=== PATIENT | female | born 1950 | race Caucasian/White ===

== ENCOUNTER 2019-12-05 15:41 | Outpatient (REF) | payer OTHER, SELFPAY | END 2019-12-05 15:42 | disposition home or self-care (01) | LOC: HO.LAB 15:41 | PROVIDERS: PCP Nurse Practitioner Family; Visit Provider Internal Medicine | DX: Z20.828 Contact with and (suspected) exposure to other viral communicable diseases (principal) | CPT/HCPCS: 87635 ==

== ENCOUNTER 2019-12-19 17:10 | Outpatient (REF) | payer OTHER, SELFPAY | END 2019-12-19 17:11 | disposition home or self-care (01) | LOC: HO.LAB 17:10 | PROVIDERS: Visit Provider Internal Medicine | DX: Z20.828 Contact with and (suspected) exposure to other viral communicable diseases (principal) | CPT/HCPCS: U0003 ==

== ENCOUNTER 2020-02-26 10:18 | Outpatient (REF) | payer OTHER, SELFPAY ==
--- NOTE | 2020-02-26 | MR_ITS ---
EXAMINATION: MR BRAIN WITHOUT AND WITH CONTRAST CLINICAL INFORMATION: History of meningioma status post craniotomy. COMPARISON: Brain MRI 02/23/2017, 03/12/2014, 06/24/2011, 03/20/2010. TECHNIQUE: Multiplanar MR imaging of the brain was performed without and with contrast. A total of 7 mL Gadavist was utilized for this examination. FINDINGS: There are chronic postoperative changes related to the resection of a left frontal convexity mass. There is stable gliosis and encephalomalacia involving left middle frontal gyrus. There is stable smooth dural enhancement underneath the craniotomy bone flap with no evidence of new or worsening nodular enhancement to suggest disease progression. No new mass or enhancement. Elsewhere within the intracranial compartment. No mass effect or midline shift. Lateral and third ventricles are normal. No hydrocephalus. Midline structures including the cervicomedullary junction are normal. No acute bone marrow signal intensity. There is no acute territorial infarct. No pathological magnetic susceptibility artifact. Intracranial vascular flow voids are maintained. There is a left mastoid effusion. Mild paranasal sinus disease primarily affecting the ethmoid air cells. Globes and orbits are symmetric. MR/MR head/brain wo/w con IMPRESSION: Stable chronic changes related to the resection of a left frontal meningioma. There is no new mass or enhancement to suggest disease progression.
[2020-02-26 10:54] LABS: Blood Urea Nitrogen 19 mg/dL (9-16); Estimated Glomerular Filt Rate > 60
== END 2020-02-26 10:19 | disposition home or self-care (01) ==
LOC: HO.MRI 10:18
PROVIDERS: PCP Nurse Practitioner Family; Visit Provider Neurological Surgery
DX: D43.2 Neoplasm of uncertain behavior of brain, unspecified (principal)
CPT/HCPCS: 36415; 70553; 82565; 84520; A9585

== ENCOUNTER 2020-03-30 17:43 | Emergency (ER) | payer OTHER, SELFPAY ==
--- NOTE | 2020-03-30 | ECG_ITS ---
Test Reason : CHESST PAIN Blood Pressure : / mmHG Vent. Rate : 085 BPM Atrial Rate : 085 BPM P-R Int : 126 ms QRS Dur : 092 ms QT Int : 356 ms P-R-T Axes : -02 -31 031 degrees QTc Int : 423 ms Normal sinus rhythm Left axis deviation Abnormal ECG When compared with ECG of 26-AUG-2013 14:12, No significant change was found Referred By: Generic ED Physician Electronically Signed By:ANNA RUIZ MD
--- NOTE | ~2020-03-30 | CT_ITS ---
EXAMINATION: CT ABDOMEN AND PELVIS WITH CONTRAST CLINICAL INFORMATION: abdominal pain, hx diverticulitis COMPARISON: None. TECHNIQUE: Multidetector volumetric imaging was performed from the superior aspect of the liver through the pubic symphysis following administration of 100 mL Omnipaque 300 intravenous contrast. Sagittal and coronal reformatted images were obtained on the technologist workstation.. This CT examination was performed using dose optimization techniques as appropriate, variously including the following: *Automated exposure control *Adjustment of mA and/or kV according to patient size (this includes techniques or standardized protocols for targeted exams where dose is matched to indication/reason for exam; i.e. extremities or head) *Use of iterative reconstruction technique DLP: 496 mGy-cm FINDINGS: LUNG BASES: Small left pleural effusion with associated left basilar consolidation/atelectasis. 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 No suspicious hepatic lesions. Tiny low-attenuation subcentimeter probable cyst in segment 2 of the liver. No biliary ductal dilatation. The gallbladder surgically absent. PANCREAS: Unremarkable. SPLEEN: Unremarkable. ADRENAL GLANDS: Unremarkable. KIDNEYS AND URETERS: The kidneys are normal in size, shape, and attenuation. Mild fullness to both collecting systems but no significant hydronephrosis or hydroureter. No calculi seen. No perinephric stranding. BLADDER: Low-lying bladder GASTROINTESTINAL TRACT: Scattered colonic diverticulosis. There is likely an and decide anastomosis:. I do not appreciate any evidence for diverticulitis. Visualized small bowel unremarkable. ABDOMINAL WALL: Tiny fat-containing umbilical hernia LYMPHOVASCULAR STRUCTURES: Mild vascular calcification within within the aorta iliac system. No bulky adenopathy. PELVIC VISCERA: Surgically absent OSSEOUS STRUCTURES: Unremarkable. CT/CT abdomen pelvis w con IMPRESSION: I do not appreciate any acute intra-abdominal process. Postoperative and chronic appearing changes are noted. There is scattered diverticulosis but no evidence for acute diverticulitis. Chronic appearing changes as described above.
--- NOTE | ~2020-03-30 | XR_ITS ---
EXAMINATION: XR CHEST CLINICAL INFORMATION: Chest pain. COMPARISON: Chest radiograph dated 06/02/2009. TECHNIQUE: Frontal view of the chest was obtained. FINDINGS: Small left-sided pleural effusion with minimal left basilar airspace opacities. No pneumothorax. Stable cardiomediastinal silhouette. No acute osseous abnormality. XR/XR chest 1V IMPRESSION: Small left-sided pleural effusion with minimal left basilar airspace opacities.
[2020-03-30 17:57] VITALS: BP 125/82; PULSE 87; RESP 18; TEMP 36.8; O2SAT 96; BMI 29.9
[2020-03-30 18:24] LABS: MANUAL DIFF FLAG NO
[2020-03-30 18:25] LABS: Basophils Absolute Auto 0.1 X10*3/uL (0.0-0.2); Basophils Percent Auto 0.5 % (0-2); Eosinophils Absolute Auto 0.1 X10*3/uL (0.0-0.4); Eosinophils Percent Auto 0.5 % (0-4); Hematocrit 39.3 % (37-47); Hemoglobin 13.1 g/dl (12.0-16.0); Imm Gran Abs Auto 0.03 X10*3/uL (0.00-0.03); Imm Gran Pct Auto 0.3 % (0.0-0.4); Lymphocytes Absolute Auto 2.9 X10*3/uL (1.2-4.9); Lymphocytes Percent Auto 28.4 % (20-40); Mean Corpuscular HGB Conc 33.3 g/dl (31.0-35.0); Mean Corpuscular Hemoglobin 30.5 pg (27.0-33.0); Mean Corpuscular Volume 91.6 fL (80-98); Mean Platelet Volume 9.4 fL (9.4-12.3); Monocytes Percent Auto 9.7 % (2-11); Neutrophils Absolute Auto 6.3 X10*3/uL (2.0-8.3); Neutrophils Percent Auto 60.6 % (45-73); Platelet Count 263 X10*3/uL (160-400); Red Blood Count 4.29 X10*6/uL (4.20-5.50); Red Cell Distribution Width 14.6 % (11.0-16.0); White Blood Count 10.3 X10*3/uL (4.8-10.8)
[2020-03-30 18:46] LABS: Anion Gap 10 (12-20); Blood Urea Nitrogen 14 mg/dL (9-16); Calcium 9.1 mg/dL (8.4-10.2); Carbon Dioxide 28 mmol/L (22-29); Chloride 107 mmol/L (96-108); Creatinine Clr Calc Pharmacy 62.4; Estimated Glomerular Filt Rate > 60; Glucose Random 96 mg/dL (60-115); Potassium 4.1 mmol/L (3.3-5.1); Sodium 141 mmol/L (135-145)
[2020-03-30 18:52] LABS: Troponin-I High Sensitivity < 3.5 ng/L (<3.5-17.0)
[2020-03-30 18:59] LABS: Alanine Aminotransferase 64 U/L (0-31); Albumin Level 4.1 g/dL (3.5-5.0); Alkaline Phosphatase 82 U/L (39-117); Aspartate Amino Transferase 59 U/L (5-31); Bilirubin Direct 0.2 mg/dL (0.0-0.5); Bilirubin Total 0.7 mg/dL (0.0-1.0); Total Protein 6.9 g/dL (6.5-8.0)
[2020-03-30 19:16] VITALS: BP 132/85; PULSE 78; RESP 20
--- NOTE | 2020-03-30 19:17 | PC.NURSE ---
Report taken from jose Howard RN resuming care. Pt found sitting upright in bed, CAOx4, speaking full sentences, reporting 10/10 pain to LUQ radiating to left shoulder, denies N/V/D. IV established, VSS. Pt aware of plan to CT.
--- NOTE | 2020-03-30 19:39 | ED.ABDPAIN ---
HPI - Abdominal Pain General Chief Complaint: Abdominal Pain Stated Complaint: multiple complaints Time Seen by Provider: 03/30/20 18:41 Source: patient Mode of arrival: ambulatory Limitations: no limitations History of Present Illness HPI narrative: 69 y/o female with history of diverticulitis s/p colonic resection 12 years ago who presents with intermittent upper abdominal pain since yesterday. She states the pain is all across her upper abdomen and it radiates to her left shoulder. It is worse with deep breaths and she has some chest tightness. She has no personal cardiac history but her mother had a [facility] at age 68 and . She denies fever, nausea, vomiting, diarrhea, SOB, myalgias, urinary symptoms. She admits to chills. No sick contacts. MD elicited complaint: abdominal pain Pertinent past history: diverticulitis Onset (ago): day(s) (1) Pain Consistency: intermittent Location: epigastric, LUQ and RUQ Severity: severe Quality: aching and sharp Radiation: other (left shoulder ) Exacerbating factors: nothing Relieving factors: nothing Associated symptoms: denies other symptoms Related Data Previous Rx's Medication Instructions Recorded lidocaine [Lidoderm] 1 patch TOPICAL DAILY #15 ea 03/30/20 pantoprazole [Protonix] 40 mg PO DAILY #15 tab 03/30/20 sucralfate [Carafate] 1 g PO BID #30 tab 03/30/20 Allergies Allergy/AdvReac Type Severity Reaction Status Date / Time morphine [Morphine] Allergy Mild HYPOTENSION Verified 03/30/20 17:56 hydrocodone [From Vicodin] AdvReac Mild NAUSEA & Verified 03/30/20 17:56 VOMITING indomethacin [From Indocin] AdvReac Mild MIGRAINE Verified 03/30/20 17:56 HEADACHE Penicillins AdvReac Mild TACHYACRDIA Verified 03/30/20 17:56 Review of Systems Review of Systems Constitutional: No Fever, No Chills Cardiovascular: + Chest Pain, No SOB, No Orthopnea, No Edema Respiratory: No Cough, No Sputum, No Wheezing, No dyspnea Gastrointestinal: No Nausea, No Vomiting, No Diarrhea, + abdominal Pain Genitourinary: No Dysuria, No Urinary Frequency, No Hematuria Musculoskeletal: + joint pain, No Myalgias Skin: No Skin Lesions, No rash Neuro: No Weakness, No Numbness, No Dizziness, No Headache Psych: No Anxiety/Panic, No Depression Heme/Lymph: No Bruising, No Lymphadenopathy Endocrine: No Polyuria, No Polydipsia Physical Exam Vital Signs: Vital Signs: Last Vital Signs Temp 98.2 F 03/30/20 17:57 Pulse 91 03/30/20 20:21 Resp 16 03/30/20 20:21 BP 154/78 H 03/30/20 20:21 Pulse Ox 96 03/30/20 17:57 Body Mass Index 29.9 Appearance: Alert. Oriented X3. No acute distress. Eyes: Pupils equal, round and reactive to light. ENT: Pharynx normal. Neck: Normal inspection. Neck supple. CVS: Normal heart rate and rhythm. Pulses normal. Respiratory: No respiratory distress. Breath sounds normal. Abdomen: Softly distended with moderate tenderness in upper abdomen, mostly centrally.. +BS x4 Skin: Skin warm and dry. Normal skin color. Normal skin turgor. No rashes. Extremities: No lower extremity edema. Neuro: Oriented X 3. No motor deficit. No sensory deficit. Course Course Course Narrative: 69 y/o female with history of diverticulitis s/p colon resection 12 years ago with upper abdominal pain, shoulder pain and chest tightness. Need to r/o [facility] - EKG and troponin ordered. Concern for diverticulitis flare as well - will get labs and CT scan. No pain at this time. Reevaluation(s) Reevaluation #1: 19:45 - Patient developed 10/10 upper abdominal pain. Hypotensive with morphine in the past, will give low dose of IV fentanyl and GI cocktail. Labs are reassuring, mild transaminitis noted. EKG and troponin negative. CT scan is pending. Will reassess. Reevaluation #2: Pain is improved after meds. CT scan showed no evidence of acute intra-abdominal pathology. Small right pleural effusion with associated atelectasis/consolidation. No cough or SOB. No fever or leukocytosis, doubt pneumonia. Her intermittent abdominal pain may be due to gastritis. She is improved with GI cocktail. PO trial now. If tolerating, stable for discharge. COVID negative. Reevaluation #3: Tolerating PO, stable for discharge. Patient agrees with plan. MDM - Abdominal Pain Differential Diagnosis Differential diagnosis: Likely abdominal pain, acute appendicitis, bowel perforation, constipation, diverticulitis, gastroenteritis, gastritis, pancreatitis and peptic ulcer disease Medical Records Attestation: I reviewed the patient's medical records. Lab Data Attestation: I reviewed the patient's lab results. Result diagrams: 03/30/20 18:11 03/30/20 18:11 Labs: Lab Results 03/30/20 03/30/20 03/30/20 Range/Units 18:11 18:11 18:11 WBC 10.3 (4.8-10.8) X10*3/uL RBC 4.29 (4.20-5.50) X10*6/uL Hgb 13.1 (12.0-16.0) g/dl Hct 39.3 (37-47) % MCV 91.6 (80-98) fL MCH 30.5 (27.0-33.0) pg MCHC 33.3 (31.0-35.0) g/dl RDW 14.6 (11.0-16.0) % Plt Count 263 (160-400) X10*3/uL MPV 9.4 (9.4-12.3) fL Immature Gran % (Auto) 0.3 (0.0-0.4) % Neut % (Auto) 60.6 (45-73) % Lymph % (Auto) 28.4 (20-40) % Terry % (Auto) 9.7 (2-11) % Eos % (Auto) 0.5 (0-4) % Baso % (Auto) 0.5 (0-2) % Lymph # (Auto) 2.9 (1.2-4.9) X10*3/uL Terry # (Auto) 1.0 (0.1-1.2) X10*3/uL Eos # (Auto) 0.1 (0.0-0.4) X10*3/uL Baso # (Auto) 0.1 (0.0-0.2) X10*3/uL Abs Immat Gran (auto) 0.03 (0.00-0.03) X10*3/uL Absolute Neuts (auto) 6.3 (2.0-8.3) X10*3/uL Absolute Nucleated RBC 0.000 (0.0-0.012) X10*3/uL Nucleated RBC % (auto) 0.0 (0.0-0.2) /100WBC Hold Blue Top SEE NOTE Sodium 141 (135-145) mmol/L Potassium 4.1 (3.3-5.1) mmol/L Chloride 107 (96-108) mmol/L Carbon Dioxide 28 (22-29) mmol/L Anion Gap 10 L (12-20) BUN 14 (9-16) mg/dL Creatinine 0.76 (0.5-1.4) mg/dL Estim Creat Clear Calc 62.4 Estimated GFR > 60 Random Glucose 96 (60-115) mg/dL Calcium 9.1 (8.4-10.2) mg/dL Total Bilirubin 0.7 (0.0-1.0) mg/dL Direct Bilirubin 0.2 (0.0-0.5) mg/dL AST 59 H (5-31) U/L ALT 64 H (0-31) U/L Alkaline Phosphatase 82 (39-117) U/L Troponin I High Sens (<3.5-17.0) ng/L Total Protein 6.9 (6.5-8.0) g/dL Albumin 4.1 (3.5-5.0) g/dL Lipase 65 (8-78) U/L Coronavirus (PCR) (Negative) Influenza Type A (PCR) (Negative) Influenza Type B (PCR) (Negative) RSV RNA Qual (PCR) (Negative) 03/30/20 03/30/20 Range/Units 18:11 19:57 WBC (4.8-10.8) X10*3/uL RBC (4.20-5.50) X10*6/uL Hgb (12.0-16.0) g/dl Hct (37-47) % MCV (80-98) fL MCH (27.0-33.0) pg MCHC (31.0-35.0) g/dl RDW (11.0-16.0) % Plt Count (160-400) X10*3/uL MPV (9.4-12.3) fL Immature Gran % (Auto) (0.0-0.4) % Neut % (Auto) (45-73) % Lymph % (Auto) (20-40) % Terry % (Auto) (2-11) % Eos % (Auto) (0-4) % Baso % (Auto) (0-2) % Lymph # (Auto) (1.2-4.9) X10*3/uL Terry # (Auto) (0.1-1.2) X10*3/uL Eos # (Auto) (0.0-0.4) X10*3/uL Baso # (Auto) (0.0-0.2) X10*3/uL Abs Immat Gran (auto) (0.00-0.03) X10*3/uL Absolute Neuts (auto) (2.0-8.3) X10*3/uL Absolute Nucleated RBC (0.0-0.012) X10*3/uL Nucleated RBC % (auto) (0.0-0.2) /100WBC Hold Blue Top Sodium (135-145) mmol/L Potassium (3.3-5.1) mmol/L Chloride (96-108) mmol/L Carbon Dioxide (22-29) mmol/L Anion Gap (12-20) BUN (9-16) mg/dL Creatinine (0.5-1.4) mg/dL Estim Creat Clear Calc Estimated GFR Random Glucose (60-115) mg/dL Calcium (8.4-10.2) mg/dL Total Bilirubin (0.0-1.0) mg/dL Direct Bilirubin (0.0-0.5) mg/dL AST (5-31) U/L ALT (0-31) U/L Alkaline Phosphatase (39-117) U/L Troponin I High Sens < 3.5 (<3.5-17.0) ng/L Total Protein (6.5-8.0) g/dL Albumin (3.5-5.0) g/dL Lipase (8-78) U/L Coronavirus (PCR) NEGATIVE (Negative) Influenza Type A (PCR) NEGATIVE (Negative) Influenza Type B (PCR) NEGATIVE (Negative) RSV RNA Qual (PCR) NEGATIVE (Negative) ECG Data Attestation: I personally reviewed and interpreted this ECG as follows: ECG interpretation date: 03/30/20 ECG interpretation time: 20:11 Interpretation: normal sinus rhythm, left axis deviation, HR 85 bpm, normal WA interval, normal QRS duration Critical Care Time Critical Care Time Critical Care Time: No Discharge Plan Discharge Clinical Impression: Gastritis Qualifiers: Gastritis type: unspecified gastritis Chronicity: acute Gastritis bleeding: without bleeding Qualified Code(s): K29.00 - Acute gastritis without bleeding Patient Disposition: Home, Self-Care Instructions: Gastritis (ED) Additional Instructions: Your lab workup was unremarkable aside from a mild elevation in your liver enzymes, this is nonspecific. Your CT scan did not show any causes of you pain. Recommend bland diet while you are not feeling well. Rest and stay hydrated. Avoid foods high in acid and spicy foods. No alcohol. Avoid NSAIDS like Motrin, Advil. Follow up with your doctor next week. If the pain persists recommend follow up with GI for further evaluation. Prescriptions: New sucralfate [Carafate] 1 gram tablet 1 g PO BID Qty: 30 RF: 0 pantoprazole [Protonix] 40 mg tablet,delayed release (DR/EC) 40 mg PO DAILY Qty: 15 RF: 0 lidocaine [Lidoderm] 5 % adhesive patch,medicated 1 patch topical DAILY Qty: 15 RF: 0 Referrals: Renetta Power MD [Physician] - 1 week (upper abdominal pain) [facility] Past Medical History Attestation statement: The following information was validated with the patient. Medical History (Updated 03/30/20 @ 20:43 by LESLIE Mccord) Diverticulitis No known health problems Surgical History (Updated 03/30/20 @ 19:48 by LESLIE Mccord) History of colon resection Social History Social History Advance Directives: No Advance Directives Information Provided: Yes
[2020-03-30] MEDS: iohexoL 350 MG/ML 100 ML INFUS..BTL IV (20:09)
--- NOTE | 2020-03-30 20:09 | PC.NURSE ---
Pt ambulating to XRay and CT with a pan/steady gait. Aware of plan to medicate upon return.
[2020-03-30] MEDS: Lidocaine HCl Viscous 2 % 15 ML SOLUTION MUCOUS MEM (20:13)
[2020-03-30] MEDS: Omeprazole 40 MG CAPSULE.DR PO (20:13)
[2020-03-30] MEDS: fentaNYL citrate/PF 100 MCG/2 ML VIAL 25 MCG IVPUSH (20:13)
[2020-03-30] MEDS: Magnesium Hydrox/Alum Hydrox 30 ML ORAL.SUSP PO (20:13)
[2020-03-30 20:15] VITALS: BP 169/81; PULSE 91; RESP 16
--- NOTE | 2020-03-30 20:16 | PC.NURSE ---
Returns from CT/XRay. Medicated per APR. VSS at this time. Awaiting CT results.
[2020-03-30 20:21] VITALS: BP 154/78; PULSE 91; RESP 16
[2020-03-30 20:29] LABS: Lipase 65 U/L (8-78)
[2020-03-30 20:44] LABS: Influenza A PCR NEGATIVE (Negative); Influenza B PCR NEGATIVE (Negative); Resp Syncy Virus RNA Qual PCR NEGATIVE (Negative); SARS COV2 PCR INHOUSE NEGATIVE (Negative)
[2020-03-30 21:02] VITALS: BP 148/82; PULSE 84; RESP 16; O2SAT 96
== END 2020-03-30 21:07 | disposition home or self-care (01) ==
PROVIDERS: Physician Assistant; Emergency Provider Emergency Medicine; PCP Nurse Practitioner Family
DX: K29.00 Acute gastritis without bleeding (principal); Z20.822 Contact with and (suspected) exposure to COVID-19
CPT/HCPCS: 0241U; 36415; 71045; 74177; 80048; 80076; 83690; 84484; 85025; 93005; 96374; 99284; J3010; Q9967

== ENCOUNTER 2020-07-09 13:00 | Outpatient (REF) | payer OTHER, SELFPAY ==
--- NOTE | ~2020-07-09 | US_ITS ---
EXAMINATION: US VENOUS ULTRASOUND WITH DOPPLER LOWER EXTREMITY, RIGHT CLINICAL INFORMATION: Swelling COMPARISON: None TECHNIQUE: Ultrasound of the deep veins is performed from the hip to the calf with compression sonography and color and pulse Doppler assessment. Spectral analysis with color-flow imaging is performed. FINDINGS: There is normal venous compression and respiratory variation and augmented flow. The visualized common femoral vein, superficial femoral vein, profunda femoral vein, popliteal vein, and the trifurcation region shows no evidence of deep venous thrombosis. There is no significant popliteal fossa cyst. US/US venous duplex LE RT IMPRESSION: No DVT demonstrated in the right lower extremity.
== END 2020-07-09 13:01 | disposition home or self-care (01) ==
LOC: HO.HMGCX 13:00
PROVIDERS: Visit Provider Internal Medicine
DX: R60.0 Localized edema (principal)
CPT/HCPCS: 93971

== ENCOUNTER 2021-09-22 11:55 | Outpatient (REF) | payer OTHER, SELFPAY ==
--- NOTE | ~2021-09-22 | XR_ITS ---
EXAMINATION: XR HAND, BILATERAL CLINICAL INFORMATION: Other specified abnormal immunological findings in serum. COMPARISON: None TECHNIQUE: 3 views of each hand. FINDINGS: LEFT: Bone alignment is normal. No fracture or dislocation is seen. The bones are osteopenic. There are small osteophytes at the DIP joint of the 2nd finger and IP joint of the thumb. Joint spaces are otherwise normal. Soft tissues are normal. RIGHT: Bone alignment is normal. No fracture or dislocation is seen. The bones are osteopenic. There is mild arthritis at the DIP joint of the 5th finger and IP joint of the thumb. Joint spaces are otherwise normal. Soft tissues are normal. XR/XR hand LT min 3V IMPRESSION: Osteopenia. Mild arthritis at the IP joints.
--- NOTE | ~2021-09-22 | XR_ITS ---
EXAMINATION: XR KNEE, RIGHT XR KNEE, LEFT CLINICAL INFORMATION: Other specified abnormal immunological findings in serum COMPARISON: None TECHNIQUE: 3 views of each knee. FINDINGS: RIGHT: Bone alignment is normal. No fracture or dislocation is seen. There are small osteophytes at the patellofemoral and medial femoral tibial joints. There is a small osteophyte at the quadriceps tendon insertion to the patella. There is no joint effusion. LEFT: Bone alignment is normal. No fracture or dislocation is seen. There are small osteophytes at the patellofemoral joint. There is an osteophyte at the quadriceps tendon insertion to the patella. There is a small joint effusion. XR/XR knee RT 3V IMPRESSION: Degenerative changes. Small left joint effusion.
--- NOTE | ~2021-09-22 | XR_ITS ---
EXAMINATION: RIGHT FOOT AND ANKLE X-RAY CLINICAL INFORMATION: Pain COMPARISON: None TECHNIQUE: 3 views of the right foot and 3 views of the right ankle FINDINGS: Right foot: The bones are osteopenic. Bone alignment is normal. No fracture or dislocation is seen. There is arthritis at the IP joint of the great toe with erosive changes. Joint spaces are otherwise normal. Soft tissues are normal. Right ankle: Bone alignment is normal. No fracture or dislocation is seen. The ankle mortise is normal. Soft tissues are normal. 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 Right ankle: Unremarkable exam.
--- NOTE | ~2021-09-22 | XR_ITS ---
EXAMINATION: XR KNEE, RIGHT XR KNEE, LEFT CLINICAL INFORMATION: Other specified abnormal immunological findings in serum COMPARISON: None TECHNIQUE: 3 views of each knee. FINDINGS: RIGHT: Bone alignment is normal. No fracture or dislocation is seen. There are small osteophytes at the patellofemoral and medial femoral tibial joints. There is a small osteophyte at the quadriceps tendon insertion to the patella. There is no joint effusion. LEFT: Bone alignment is normal. No fracture or dislocation is seen. There are small osteophytes at the patellofemoral joint. There is an osteophyte at the quadriceps tendon insertion to the patella. There is a small joint effusion. XR/XR knee LT 3V IMPRESSION: Degenerative changes. Small left joint effusion.
--- NOTE | ~2021-09-22 | XR_ITS ---
EXAMINATION: RIGHT FOOT AND ANKLE X-RAY CLINICAL INFORMATION: Pain COMPARISON: None TECHNIQUE: 3 views of the right foot and 3 views of the right ankle FINDINGS: Right foot: The bones are osteopenic. Bone alignment is normal. No fracture or dislocation is seen. There is arthritis at the IP joint of the great toe with erosive changes. Joint spaces are otherwise normal. Soft tissues are normal. Right ankle: Bone alignment is normal. No fracture or dislocation is seen. The ankle mortise is normal. Soft tissues are normal. 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 Right ankle: Unremarkable exam.
--- NOTE | ~2021-09-22 | XR_ITS ---
EXAMINATION: XR HAND, BILATERAL CLINICAL INFORMATION: Other specified abnormal immunological findings in serum. COMPARISON: None TECHNIQUE: 3 views of each hand. FINDINGS: LEFT: Bone alignment is normal. No fracture or dislocation is seen. The bones are osteopenic. There are small osteophytes at the DIP joint of the 2nd finger and IP joint of the thumb. Joint spaces are otherwise normal. Soft tissues are normal. RIGHT: Bone alignment is normal. No fracture or dislocation is seen. The bones are osteopenic. There is mild arthritis at the DIP joint of the 5th finger and IP joint of the thumb. Joint spaces are otherwise normal. Soft tissues are normal. XR/XR hand RT min 3V IMPRESSION: Osteopenia. Mild arthritis at the IP joints.
[2021-09-22 14:02] LABS: C Reactive Protein 0.12 mg/dL (< or = 0.50)
[2021-09-22 14:56] LABS: Erythrocyte Sedimentation Rate 7 MM/HR (0-20)
[2021-09-24 16:26] LABS: Cyclic Citrullinated Peptide <16 UNITS
[2021-09-25 08:57] LABS: Antibody to SS-A Antigen <1.0 NEG AI (<1.0 NEG); Antibody to SS-B Antigen <1.0 NEG AI (<1.0 NEG)
== END 2021-09-22 11:56 | disposition home or self-care (01) ==
LOC: HO.10HDL 11:55
PROVIDERS: PCP Nurse Practitioner Family; Visit Provider Internal Medicine Rheumatology
DX: R76.8 Other specified abnormal immunological findings in serum (principal); M25.571 Pain in right ankle and joints of right foot; M79.642 Pain in left hand
CPT/HCPCS: 36415; 73130; 73562; 73600; 73620; 85652; 86140; 86200; 86235

== ENCOUNTER 2021-10-16 11:39 | Outpatient (REF) | payer OTHER, SELFPAY ==
[2021-10-16 14:04] LABS: MANUAL DIFF FLAG NO
[2021-10-16 14:11] LABS: Basophils Absolute Auto 0.1 X10*3/uL (0.0-0.2); Basophils Percent Auto 0.7 % (0-2); Eosinophils Absolute Auto 0.1 X10*3/uL (0.0-0.4); Hemoglobin 13.2 g/dl (12.0-16.0); Imm Gran Abs Auto 0.02 X10*3/uL (0.00-0.03); Imm Gran Pct Auto 0.3 % (0.0-0.4); Lymphocytes Absolute Auto 2.5 X10*3/uL (1.2-4.9); Lymphocytes Percent Auto 34.9 % (20-40); Mean Corpuscular Hemoglobin 29.4 pg (27.0-33.0); Mean Corpuscular Volume 89.1 fL (80.0-98.0); Monocytes Absolute Auto 0.7 X10*3/uL (0.1-1.2); Monocytes Percent Auto 9.6 % (2-11); Neutrophils Absolute Auto 3.8 x10*3/uL (2.0-8.3); Neutrophils Percent Auto 53.5 % (45-73); Platelet Count 268 X10*3/uL (160-400); Red Blood Count 4.49 X10*6/uL (4.20-5.50); Red Cell Distribution Width 15.7 % (11.0-16.0); White Blood Count 7.1 X10*3/uL (4.8-10.8)
[2021-10-16 14:29] LABS: Alanine Aminotransferase 17 U/L (0-31); Albumin Level 4.2 g/dL (3.5-5.0); Alkaline Phosphatase 55 U/L (39-117); Anion Gap 13 (12-20); Aspartate Amino Transferase 16 U/L (5-31); Bilirubin Total 0.4 mg/dL (0.0-1.0); Blood Urea Nitrogen 12 mg/dL (9-16); Calcium 9.8 mg/dL (8.4-10.2); Carbon Dioxide 27 mmol/L (22-29); Chloride 108 mmol/L (96-108); Estimated Glomerular Filt Rate > 60; Glucose Random 84 mg/dL (60-115); Potassium 4.2 mmol/L (3.3-5.1); Sodium 144 mmol/L (135-145); Total Protein 6.7 g/dL (6.5-8.0)
[2021-10-21 05:02] LABS: Glucose-6-Phosphate Dehydrogen 15.1 U/g Hgb (7.0-20.5)
== END 2021-10-16 11:40 | disposition home or self-care (01) ==
LOC: HO.10HDL 11:39
PROVIDERS: Visit Provider Internal Medicine Rheumatology
DX: M05.80 Other rheumatoid arthritis with rheumatoid factor of unspecified site (principal); Z79.899 Other long term (current) drug therapy
CPT/HCPCS: 36415; 80053; 82955; 85025

== ENCOUNTER 2021-11-15 14:32 | Emergency (ER) | payer OTHER, SELFPAY ==
[2021-11-15 14:41] VITALS: BP 166/95; PULSE 95; RESP 18; TEMP 37; O2SAT 100; BMI 28.5
[2021-11-15 17:44] VITALS: BP 156/87; PULSE 99; RESP 18; TEMP 36.6; O2SAT 96
--- NOTE | 2021-11-15 17:49 | ED.GENADULT ---
HPI - General Adult General Chief complaint: Allergic Reaction Stated complaint: hive Time Seen by Provider: 11/15/21 16:50 Source: patient and family (daughter) Mode of arrival: ambulatory Limitations: no limitations History of Present Illness HPI narrative: Patient is a 71 year old female presenting to the emergency department today with a rash. 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 Patient states that she has only taken a few doses when she erupted in this rash. Patient states that the rash is all over her body. Patient states that there are no lesions in her mouth. Patient denies any dizziness, lightheadedness, abdominal pain, nausea, vomiting, fever, chills, blurry vision, double vision, loss of vision, chest pain, difficulty breathing, shortness of breath, back pain, night sweats, pain with urination, increased urinary frequency, increased urinary urgency, blood in her urine or stool, syncope or a near syncopal episode, recent trauma or falls, bowel incontinence, bladder incontinence, bowel retention, bladder retention, or any other complaints at this time.? Onset (ago): hour(s) Severity: mild Severity scale (1-10): 3 Pain Consistency: constant Relieving factors: none Exacerbating factors: none Associated symptoms: rash Treatments prior to arrival: other (benadryl) Related Data Home Medications Medication Instructions Recorded Confirmed ibuprofen 200 mg tablet 600 mg PO Q6H PRN 09/22/21 10/16/21 Allergies Allergy/AdvReac Type Severity Reaction Status Date / Time morphine [Morphine] Allergy Mild HYPOTENSION Verified 10/16/21 10:25 hydrocodone [From Vicodin] AdvReac Mild NAUSEA & Verified 10/16/21 10:25 VOMITING indomethacin [From Indocin] AdvReac Mild MIGRAINE Verified 10/16/21 10:25 HEADACHE Penicillins AdvReac Mild TACHYACRDIA Verified 10/16/21 10:25 prednisolone AdvReac Hives Verified 11/15/21 17:50 Review of Systems Constitutional: Constitutional: Reports no additional constitutional complaints, Denies chills, Denies fever(s) and Denies night sweats Eyes: Eyes: Reports no additional eye complaints, Denies blurry vision, Denies change in vision, Denies diplopia, Denies eye discharge, Denies loss of vision and Denies eye pain ENT: Denies dizziness Cardiovascular: Cardiovascular: Reports no additional cardiovascular complaints, Denies chest pain, Denies lightheadedness, Denies Loss of Consciousness and Denies dyspnea Respiratory: Respiratory: Reports no additional respiratory complaints and Denies dyspnea Gastrointestinal: Gastrointestinal: Reports no additional gastrointestinal complaints, Denies abdominal pain, Denies melena, Denies hematochezia, Denies change in bowel habits and Denies change in stool character Genitourinary: Genitourinary: Denies hematuria, Denies urinary frequency, Denies dysuria, Denies urinary incontinence, Denies urinary hesitancy and Denies urinary urgency Musculoskeletal: Musculoskeletal: Reports no additional musculoskeletal complaints, Denies numbness and Denies tingling Integumentary/Breasts: Skin/Breast: Reports rash Neurologic: Denies dizziness, Denies loss of vision, Denies numbness and Denies tingling Psychiatric: Psychiatric: Reports no additional psychiatric complaints Endocrine: Endocrine: Reports no additional endocrine complaints Hematologic/Lymphatic: Hematologic/Lymphatic: Reports no additional hematologic/lymphatic complaints Allergic/Immunologic: Allergic/Immunologic: Reports no additional allergic/immunologic complaints [facility] Past Medical History Attestation statement: The following information was validated with the patient. Source: old records reviewed Medical History Diverticulitis No known health problems Surgical History History of colon resection Social History Social History Household Members: Spouse Housing: House Are you a primary medical care evaluation specialist to a significant other at home: No Do you presently have visiting nurse or other home services: No Alcohol intake: never Patient Tobacco Use Status: Never used Tobacco e-Cigarette/Vaping Use: Never Used Advance Directives: Yes Advance Directives Information Provided: No Advance Directives on File: No service: No Current occupational status: retired Physical Exam ED Vital Signs: Vital Signs - 24 hr 11/15/21 14:41 11/15/21 17:44 Temperature 98.6 F 97.8 F Pulse Rate 95 99 Respiratory Rate 18 18 Blood Pressure 166/95 H 156/87 H Pulse Oximetry 100 96 Oxygen Delivery Method Room Air Room Air BMI result Body Mass Index 28.5 Const General: cooperative, no acute distress, alert and awake Nutritional Appearance: well nourished Orientation/consciousness: patient oriented x3 Limitations: no limitations HENMT Head: Yes normal to inspection and Yes atraumatic Ears: hearing grossly normal bilaterally and external ears normal General nose exam: Normal external nose present, no nasal discharge noted and no epistaxis Face and sinus: Yes normal facial exam, No abrasion and No laceration Mouth: Normal oral and palatal mucosa present, no drooling and no muffled voice Eyes General: appearance normal, both eyes and all related structures Periorbital: periorbital findings normal Eyelids: Yes eyelids normal Conjunctivae: conjunctivae normal Pupils: Equal, round and reactive pupils present EOM: EOMs intact bilaterally Neck Neck: Yes normal visual inspection, Yes full ROM and Yes no lymphadenopathy Chest Chest palpation & inspection: normal inspection of the chest Resp Effort & Inspection: normal respiratory effort and able to speak in complete sentences Auscultation: clear to auscultation bilaterally Cardio Rate: regular rate Rhythm: regular rhythm GI Inspection: Yes normal to inspection Skin Other: diffuse uriticaria to the bilateral arms, bilateral legs, and chest Neuro General: patient oriented x3 and moves all extremities Cranial nerves: Yes Equal, round and reactive pupils present Cognition (Neuro): normal cognition Motor exam (neuro): 5/5 motor strength present throughout Sensory Exam: Normal double simultaneous stimulation for sensation Coordination: [id number] test normal Extrem General: Yes normal to inspection, Yes full ROM and Yes capillary refill normal Psych Appearance: grossly normal Mental Status: mental status grossly normal Affect: normal affect Attitude: cooperative Thought process: Normal thought process present Thought content: Normal thought content present Insight: Good insight present (Psych) Medical Decision Making MDM Narrative Medical decision making narrative: Patient is a 71 year old female presenting to the emergency department today after a drug reaction. Patient's physical exam showed diffuse urticaria, with no oral lesions, and was otherwise unremarkable. I explained my physical exam findings to the patient and the patient's daughter. I answered all questions asked by the patient and the patient's daughter. I instructed the patient to stop taking the medication, immediately. I stressed the importance of the patient taking her other medication as prescribed. I stressed the importance of the patient following up with her primary care provider and her special forces engineer sergeant. I stressed the importance of the patient returning to the emergency department immediately if her symptoms were to worsen or if she were to develop any dizziness, shortness of breath, difficulty breathing, chest pain, blurry vision, loss of vision, nausea, vomiting, abdominal pain, fever, chills, back pain, or any other complaints. Patient and the patient's daughter verbalized agreement and understanding with this treatment plan and discharge. Medical Records Medical records reviewed: Yes I reviewed the patient's medical records. Discharge Plan Discharge Clinical Impression: Adverse drug reaction Patient Disposition: Home, Self-Care Instructions: General Allergic Reaction (ED) Additional Instructions: Follow up with your primary care provider. Return to the emergency department immediately if your symptoms worsen or if you develop any dizziness, shortness of breath, difficulty breathing, chest pain, blurry vision, loss of vision, nausea, vomiting, abdominal pain, fever, chills, back pain, or any other complaints. Prescriptions: Discontinued sulfasalazine 500 mg tablet See Rx Instructions .ROUTE .COMPLEX Qty: 120 3RF Rx Instructions: one daily for a week, then one twice daily for a week, then one three times daily for a week, then one four times daily thereafter; give with food (meal/snack) No Action ibuprofen 200 mg tablet 600 mg PO Q6H PRN Referrals: Rosa Piper PA [Primary Care Provider] - Print Language: Mozambican
--- OUTSIDE RECORDS SUMMARY | 2021-11-15 18:11 | XMS_ITS | Continuity of Care Document ---
:1950 Author Organization [facility] Address [address], [address] [place] [address]- Care Team Providers Name Role Phone Paty MARINELLI, Rosa Primary Care Physician Encounter 11/14/20 - 11/21/20 [facility] [address], [address] [place] [address]- Attending Physician: Rosa Newman NP Admitting Physician: Paty MARINELLI, Rosa Referring Physician: Rosa Newman NP Allergies, Adverse Reactions, Alerts Substance Reaction Severity Status Indocin Active Levaquin Active Medications doxycycline hyclate 100 mg oral tablet 200, mg, 2, tablet, By Mouth, Once, 2, 0, 0, 01/20/08 10:09:26, Print [place] Number, [facility], [address] [place] [id number], 42, Constant Indicator Start Date: 01/20/08 Status: Ordereddoxycycline hyclate 100 mg oral tablet 200, mg, 2, tablet, By Mouth, Once, 2, 0, 0, 01/20/08 11:45:52, Print [place] Number, [address] [place] [id number], 42, Constant Indicator Start Date: 01/20/08 Status: OrderedMenest 0.3 mg oral tablet 0.3, mg, 1, tablet, By Mouth, Daily, 0, 0, 10/12/05 9:48:45, Print [place] Number, [id number], Constant Indicator Start Date: 10/12/05 Status: OrderedMotrin 800 mg oral tablet 800, mg, 1, tablet, By Mouth, 3 times a day, 42, tablet, 0, 0, 02/23/06 10:30:40, Print [place] Number, [facility] [address] [place] [id number], 68, Constant Indicator Start Date: 02/23/06 Stop Date: 03/09/06 Status: OrderedZithromax Z-Roger See Instructions, 6 tablet, 0, 0, 05/28/06 16:49:56, as directed on package labeling, Print [place] Number, [facility] [address] [place] [id number], Constant Indicator Start Date: 05/28/06 Status: Ordered Problem List Condition Effective Dates Status Health Status Informant Abdominal pain left sided(Confirmed) 10/12/05 Active Diverticulitis of colon(Confirmed) 02/2002 Active Gallstones(Confirmed) Active Hypercholesterolemia(Confirmed) Active Perennial allergic rhinitis(Confirmed) Active
--- OUTSIDE RECORDS SUMMARY | 2021-11-15 18:11 | XMS_ITS | Continuity of Care Document ---
:1950 Author Organization [facility] Address [address], [address] [place] [address]- Care Team Providers Name Role Phone Paty MARINELLI, Rosa Primary Care Physician Encounter 10/18/19 - 10/25/19 [facility] [address], [address] [place] [address]- [facility] Attending Physician: Rosa Newman NP Admitting Physician: Paty MARINELLI, Rosa Referring Physician: Rosa Newman NP Allergies, Adverse Reactions, Alerts Substance Reaction Severity Status Indocin Active Levaquin Active Medications doxycycline hyclate 100 mg oral tablet 200, mg, 2, tablet, By Mouth, Once, 2, 0, 0, 01/20/08 10:09:26, Print [place] Number, [facility], [address] [place] [id number], 42, Constant Indicator Start Date: 01/20/08 Status: Ordereddoxycycline hyclate 100 mg oral tablet 200, mg, 2, tablet, By Mouth, Once, 2, 0, 0, 01/20/08 11:45:52, Print [place] Number, [address] [place] [id number], 42, Constant Indicator Start Date: 01/20/08 Status: OrderedMenest 0.3 mg oral tablet 0.3, mg, 1, tablet, By Mouth, Daily, 0, 0, 10/12/05 9:48:45, Print [place] Number, [id number], Constant Indicator Start Date: 10/12/05 Status: OrderedMotrin 800 mg oral tablet 800, mg, 1, tablet, By Mouth, 3 times a day, 42, tablet, 0, 0, 02/23/06 10:30:40, Print [place] Number, [facility] [address] [place] [id number], 68, Constant Indicator Start Date: 02/23/06 Stop Date: 03/09/06 Status: OrderedZithromax Z-Roger See Instructions, 6 tablet, 0, 0, 05/28/06 16:49:56, as directed on package labeling, Print [place] Number, [facility] [address] [place] [id number], Constant Indicator Start Date: 05/28/06 Status: Ordered Problem List Condition Effective Dates Status Health Status Informant Abdominal pain left sided(Confirmed) 10/12/05 Active Diverticulitis of colon(Confirmed) 02/2002 Active Gallstones(Confirmed) Active Hypercholesterolemia(Confirmed) Active Perennial allergic rhinitis(Confirmed) Active
== END 2021-11-15 18:22 | disposition home or self-care (01) ==
LOC: HO.ED 18:10
PROVIDERS: Emergency Provider Internal Medicine; PCP Physician Assistant Medical
DX: L50.0 Allergic urticaria (principal); T37.0X5A Adverse effect of sulfonamides, initial encounter; Y92.019 Unspecified place in single-family (private) house as the place of occurrence of the external cause; M05.80 Other rheumatoid arthritis with rheumatoid factor of unspecified site
CPT/HCPCS: 99282; 99283

== ENCOUNTER 2021-11-26 13:40 | Outpatient (REF) | payer OTHER, SELFPAY ==
[2021-11-26 13:55] LABS: MANUAL DIFF FLAG NO
[2021-11-26 14:47] LABS: Basophils Absolute Auto 0.1 X10*3/uL (0.0-0.2); Eosinophils Absolute Auto 0.1 X10*3/uL (0.0-0.4); Hematocrit 39.8 % (37.0-47.0); Hemoglobin 13.3 g/dl (12.0-16.0); Imm Gran Abs Auto 0.01 X10*3/uL (0.00-0.03); Imm Gran Pct Auto 0.1 % (0.0-0.4); Lymphocytes Absolute Auto 3.2 X10*3/uL (1.2-4.9); Lymphocytes Percent Auto 46.1 % (20-40); Mean Corpuscular HGB Conc 33.4 g/dl (31.0-35.0); Mean Corpuscular Hemoglobin 30.3 pg (27.0-33.0); Mean Corpuscular Volume 90.7 fL (80.0-98.0); Mean Platelet Volume 10.3 fL (9.4-12.3); Monocytes Absolute Auto 0.7 X10*3/uL (0.1-1.2); Monocytes Percent Auto 9.5 % (2-11); Neutrophils Absolute Auto 2.9 x10*3/uL (2.0-8.3); Neutrophils Percent Auto 42.3 % (45-73); Platelet Count 268 X10*3/uL (160-400); Red Blood Count 4.39 X10*6/uL (4.20-5.50); Red Cell Distribution Width 15.4 % (11.0-16.0); White Blood Count 6.9 X10*3/uL (4.8-10.8)
[2021-11-26 15:21] LABS: Alanine Aminotransferase 31 U/L (0-31); Albumin Level 4.2 g/dL (3.5-5.0); Alkaline Phosphatase 56 U/L (39-117); Anion Gap 15 (12-20); Aspartate Amino Transferase 24 U/L (5-31); Bilirubin Total 0.4 mg/dL (0.0-1.0); Blood Urea Nitrogen 15 mg/dL (9-16); C Reactive Protein 0.11 mg/dL (< or = 0.50); Calcium 9.6 mg/dL (8.4-10.2); Carbon Dioxide 26 mmol/L (22-29); Chloride 106 mmol/L (96-108); Estimated Glomerular Filt Rate > 60; Glucose Random 70 mg/dL (60-115); Potassium 4.7 mmol/L (3.3-5.1); Sodium 142 mmol/L (135-145); Total Protein 6.8 g/dL (6.5-8.0)
[2021-11-26 15:34] LABS: Erythrocyte Sedimentation Rate 7 MM/HR (0-20)
[2021-11-27 10:09] LABS: HBS Num1 0.92 mIU/mL (0-7.99); HBc Num1 0.06 S/CO (0.00-0.79); HBsAGNum1 0.17 S/CO (0.00-0.99); Hepatitis B Core Antibody Nonreactive (Nonreactive); Hepatitis B Surface Antigen Negative (Negative); ~Hepatitis B Surface Antibody NONREACTIVE (Nonreactive); ~Hepatitis C Antibody Nonreactive (Nonreactive)
[2021-11-28 08:20] LABS: Hepatitis A Antibody IgM 0.45 Index (0-0.79); ~Hepatitis A Antibody IgM Nonreactive (Nonreactive)
[2021-11-28 23:26] LABS: TS Negative Control Passed; TS Panel A 0; TS Panel B 0; TS Positive Control Passed; TSpotTB Negative (Negative)
== END 2021-11-26 13:41 | disposition home or self-care (01) ==
LOC: HO.LAB 13:40
PROVIDERS: PCP Nurse Practitioner Family; Visit Provider Internal Medicine Rheumatology
DX: M05.80 Other rheumatoid arthritis with rheumatoid factor of unspecified site (principal); Z79.899 Other long term (current) drug therapy
CPT/HCPCS: 36415; 80053; 85025; 85652; 86140; 86481; 86704; 86706; 86709; 86803; 87340

== ENCOUNTER → 2022-03-03 10:19 | Outpatient (BNVA) | payer OTHER, SELFPAY | PROVIDERS: PCP Nurse Practitioner Family; Visit Provider Internal Medicine Rheumatology | DX: M05.80 Other rheumatoid arthritis with rheumatoid factor of unspecified site (principal) ==

== ENCOUNTER 2022-03-03 12:19 | Outpatient (REF) | payer OTHER, SELFPAY ==
[2022-03-03 14:06] LABS: MANUAL DIFF FLAG NO
[2022-03-03 14:13] LABS: Basophils Absolute Auto 0.1 X10*3/uL (0.0-0.2); Basophils Percent Auto 0.8 % (0-2); Eosinophils Absolute Auto 0.1 X10*3/uL (0.0-0.4); Eosinophils Percent Auto 0.8 % (0-4); Hematocrit 37.9 % (37.0-47.0); Hemoglobin 12.8 g/dl (12.0-16.0); Imm Gran Abs Auto 0.03 X10*3/uL (0.00-0.03); Imm Gran Pct Auto 0.3 % (0.0-0.4); Lymphocytes Absolute Auto 2.9 X10*3/uL (1.2-4.9); Lymphocytes Percent Auto 27.6 % (20-40); Mean Corpuscular HGB Conc 33.8 g/dl (31.0-35.0); Mean Corpuscular Hemoglobin 30.9 pg (27.0-33.0); Mean Corpuscular Volume 91.5 fL (80.0-98.0); Mean Platelet Volume 9.8 fL (9.4-12.3); Monocytes Absolute Auto 0.8 X10*3/uL (0.1-1.2); Neutrophils Absolute Auto 6.5 x10*3/uL (2.0-8.3); Neutrophils Percent Auto 62.5 % (45-73); Platelet Count 294 X10*3/uL (160-400); Red Blood Count 4.14 X10*6/uL (4.20-5.50); Red Cell Distribution Width 14.8 % (11.0-16.0); White Blood Count 10.4 X10*3/uL (4.8-10.8)
[2022-03-03 15:47] LABS: Alanine Aminotransferase 14 U/L (0-31); Alkaline Phosphatase 61 U/L (39-117); Anion Gap 11 (12-20); Aspartate Amino Transferase 15 U/L (5-31); Bilirubin Total 0.5 mg/dL (0.0-1.0); Blood Urea Nitrogen 14 mg/dL (9-16); Calcium 9.4 mg/dL (8.4-10.2); Carbon Dioxide 27 mmol/L (22-29); Chloride 108 mmol/L (96-108); Estimated Glomerular Filt Rate > 60; Glucose Random 89 mg/dL (60-115); Potassium 4.1 mmol/L (3.3-5.1); Sodium 142 mmol/L (135-145); Total Protein 6.6 g/dL (6.5-8.0)
== END 2022-03-03 12:20 | disposition home or self-care (01) ==
LOC: HO.10HDL 12:19
PROVIDERS: Visit Provider Internal Medicine Rheumatology
DX: M05.80 Other rheumatoid arthritis with rheumatoid factor of unspecified site (principal); Z79.899 Other long term (current) drug therapy
CPT/HCPCS: 36415; 80053; 85025

== ENCOUNTER 2022-04-16 13:19 | Outpatient (REF) | payer OTHER, SELFPAY ==
[2022-04-16 13:34] LABS: MANUAL DIFF FLAG NO
[2022-04-16 13:48] LABS: Basophils Absolute Auto 0.1 X10*3/uL (0.0-0.2); Basophils Percent Auto 0.8 % (0-2); Eosinophils Absolute Auto 0.1 X10*3/uL (0.0-0.4); Eosinophils Percent Auto 1.1 % (0-4); Hematocrit 40.4 % (37.0-47.0); Hemoglobin 13.5 g/dl (12.0-16.0); Imm Gran Abs Auto 0.02 X10*3/uL (0.00-0.03); Imm Gran Pct Auto 0.3 % (0.0-0.4); Lymphocytes Absolute Auto 3.2 X10*3/uL (1.2-4.9); Lymphocytes Percent Auto 43.9 % (20-40); Mean Corpuscular HGB Conc 33.4 g/dl (31.0-35.0); Mean Corpuscular Hemoglobin 30.5 pg (27.0-33.0); Mean Corpuscular Volume 91.4 fL (80.0-98.0); Mean Platelet Volume 9.4 fL (9.4-12.3); Monocytes Absolute Auto 0.6 X10*3/uL (0.1-1.2); Neutrophils Absolute Auto 3.4 x10*3/uL (2.0-8.3); Neutrophils Percent Auto 45.9 % (45-73); Platelet Count 302 X10*3/uL (160-400); Red Blood Count 4.42 X10*6/uL (4.20-5.50); Red Cell Distribution Width 15.1 % (11.0-16.0); White Blood Count 7.3 X10*3/uL (4.8-10.8)
[2022-04-16 14:13] LABS: Alanine Aminotransferase 14 U/L (0-31); Aspartate Amino Transferase 16 U/L (5-31); C Reactive Protein 0.11 mg/dL (< or = 0.50); Estimated Glomerular Filt Rate > 60
[2022-04-16 14:47] LABS: Erythrocyte Sedimentation Rate 9 MM/HR (0-20)
== END 2022-04-16 13:20 | disposition home or self-care (01) ==
LOC: HO.LAB 13:19
PROVIDERS: PCP Nurse Practitioner Family; Visit Provider Internal Medicine Rheumatology
DX: M05.80 Other rheumatoid arthritis with rheumatoid factor of unspecified site (principal); Z79.899 Other long term (current) drug therapy
CPT/HCPCS: 36415; 82565; 84450; 84460; 85025; 85652; 86140

== ENCOUNTER → 2022-04-20 10:03 | Outpatient (BNVA) | payer OTHER, SELFPAY | PROVIDERS: Visit Provider Internal Medicine Rheumatology | DX: Z13.89 Encounter for screening for other disorder (principal) ==

== ENCOUNTER 2022-08-31 13:34 | Outpatient (REF) | payer OTHER, SELFPAY ==
[2022-08-31 16:02] LABS: MANUAL DIFF FLAG NO
[2022-08-31 16:31] LABS: Basophils Absolute Auto 0.1 X10*3/uL (0.0-0.2); Basophils Percent Auto 0.6 % (0-2); Eosinophils Absolute Auto 0.1 X10*3/uL (0.0-0.4); Eosinophils Percent Auto 0.7 % (0-4); Hematocrit 37.4 % (37.0-47.0); Hemoglobin 12.3 g/dl (12.0-16.0); Imm Gran Abs Auto 0.03 X10*3/uL (0.00-0.03); Imm Gran Pct Auto 0.3 % (0.0-0.4); Lymphocytes Percent Auto 34.4 % (20-40); Mean Corpuscular HGB Conc 32.9 g/dl (31.0-35.0); Mean Corpuscular Hemoglobin 29.7 pg (27.0-33.0); Mean Corpuscular Volume 90.3 fL (80.0-98.0); Mean Platelet Volume 9.7 fL (9.4-12.3); Monocytes Absolute Auto 0.7 X10*3/uL (0.1-1.2); Monocytes Percent Auto 8.4 % (2-11); Neutrophils Absolute Auto 4.9 x10*3/uL (2.0-8.3); Neutrophils Percent Auto 55.6 % (45-73); Platelet Count 287 X10*3/uL (160-400); Red Blood Count 4.14 X10*6/uL (4.20-5.50); Red Cell Distribution Width 15.5 % (11.0-16.0); White Blood Count 8.7 X10*3/uL (4.8-10.8)
[2022-08-31 16:38] LABS: Alanine Aminotransferase 13 U/L (0-31); Aspartate Amino Transferase 14 U/L (5-31); C Reactive Protein 0.23 mg/dL (< or = 0.50); Estimated Glomerular Filt Rate > 60
[2022-08-31 17:11] LABS: Erythrocyte Sedimentation Rate 7 MM/HR (0-20)
== END 2022-08-31 13:35 | disposition home or self-care (01) ==
LOC: HO.HMGCLDS 13:34
PROVIDERS: PCP Nurse Practitioner Family; Visit Provider Internal Medicine Rheumatology
DX: M05.80 Other rheumatoid arthritis with rheumatoid factor of unspecified site (principal); Z79.899 Other long term (current) drug therapy
CPT/HCPCS: 36415; 82565; 84450; 84460; 85025; 85652; 86140

== ENCOUNTER 2022-09-07 11:26 | Outpatient (AMB) | payer OTHER, SELFPAY ==
[2022-09-07 11:28] VITALS: BP 102/64; PULSE 87; TEMP 36.4; O2SAT 96; BMI 26.6
--- NOTE | 2022-09-07 11:28 | MHC.OFFVIS ---
Intake Vital Signs 09/07/22 11:28 Height 5 ft Weight 136 lb 3.931 oz BMI 26.6 BP 102/64 Blood Pressure Location Rt brachial Position Sitting Pulse 87 Pulse Source Pulse Oximeter Temp 97.5 F Temp Source Skin Pulse Oximetry (%) 96 Intake Visit Reasons: 3 mnts f/u appt for RA Intake Note: Pt seen today for RA follow up. C/o pain in neck, for the past few days. Scuba Diver Required: No Accompanied by: Self / Same As Patient Allergies sulfasalazine Allergy (Intermediate, Verified 09/07/22 11:36) Hives morphine [Morphine] Allergy (Mild, Verified 09/07/22 11:36) HYPOTENSION hydrocodone [From Vicodin] Adverse Reaction (Mild, Verified 09/07/22 11:36) NAUSEA & VOMITING indomethacin [From Indocin] Adverse Reaction (Mild, Verified 09/07/22 11:36) MIGRAINE HEADACHE Penicillins Adverse Reaction (Mild, Verified 09/07/22 11:36) TACHYACRDIA prednisolone Adverse Reaction (Verified 09/07/22 11:36) Hives Medication List - Last Reconciled 09/07/22 by Yehuda Echols MD folic acid 1 mg PO DAILY ibuprofen 600 mg PO Q6H PRN methotrexate sodium 7.5 mg (3 x 2.5 mg) PO QWEEK HPI HPI Comments History of Present Illness Details The patient returns for evaluation of her seropositive rheumatoid arthritis. She is on methotrexate 7.5 mg once a week and folic acid 1 mg daily. There have been multiple interruptions in her treatment for the RA. She has taken about 2 or 3 weeks straight now of the methotrexate. It does not seem to be bothering her. She actually does not seem to have much in the way of joint pain although there is occasional right foot, hand and lower back pains. She does not seem to have any side effects so far with the methotrexate. She had missed many doses of the methotrexate because of a concern about diverticulitis. She did end up having a colonoscopy where some polyps were removed. Currently she has no abdominal pain symptoms. She has questions about sun exposure possibly triggering a methotrexate induced skin allergy and about recommended dietary supplements for her arthritis. [facility], [facility] Medical History Diverticulitis No known health problems Surgical History History of colon resection Social History Household Members: Spouse Housing: House Are you a primary resident care assistant to a significant other at home: No Do you presently have visiting nurse or other home services: No 75 years or older and lives alone: No Alcohol intake: never Patient Tobacco Use Status: Never used Tobacco e-Cigarette/Vaping Use: Never Used service: No Current occupational status: retired Review of Systems Const Details: Negative for appetite change, weight change, fever, chills, malaise and fatigue Eyes Details: Negative for vision change, dry eyes,headaches and dizziness ENT Details: Negative for hearing change, tinnitus, oral ulcer, nose bleeds and oral dryness. Card Details: Negative chest pain, edema and syncope Resp Details: Negative for SOB, cough and wheezing GI Details: Negative indigestion/heartburn, nausea, abdominal pain, bowel changes, diarrhea, constipation and bloody stool. Skin/Breast Details: Negative for itching, rash, hives, Raynaud's symptoms, sun sensitivity, and skin cancer Jordan/Lymph Details: Negative for excessive bruising or bleeding. Physical Exam Vital Signs: Last Vital Signs Temp 97.5 F 09/07/22 11:28 Pulse 87 09/07/22 11:28 BP 102/64 09/07/22 11:28 Pulse Ox 96 09/07/22 11:28 BMI result Body Mass Index 26.6 APPEARANCE: Patient in no acute distress EYES no redness, pupils equal and reactive to light, eyelids normal ABD: Normal bowel sounds, no organomegaly, masses or tenderness. EXTREMITIES: No edema, no calf tenderness, normal peripheral pulses. NEURO: Oriented and alert x3. No focal weakness. Reflexes symmetric. Gait normal. SKIN: No inflammatory or neoplastic lesions. Normal color and turgor JOINT EXAM: Cervical Spine:.? Full range of motion without pain; no tenderness. Thoracic Spine:.? No scoliosis.? No tenderness on palpation. Lumbar Spine:.? Alignment normal.? Full range of motion without pain, no tenderness. Chest Wall:.? No tenderness, swelling, increased warmth or erythema. Hands:? Right:?? The MCPs have no swelling or tenderness. Slight thickening of the thumb IP and the 2nd PIP but these joints are not tender.? There is mild slightly tender bony enlargement at the 5th PIP.? No flexor tendon triggering, thenar atrophy or sensory loss.? Left:? Normal pain-free range of motion.? There is some slight tenderness at the thumb MCP without swelling.? There is no swelling or tenderness in the other MCPs.? She has slight tenderness along the flexor tendon of the thumb.? There is nontender bony enlargement at the thumb IP in the thumb CMC joint.? There is some nodularity to the 4th flexor tendon in the 4th proximal phalanx.? There is no redness or warmth.? It is mildly tender.? No triggering is appreciated.? Wrists:.? Normal pain-free range of motion without tenderness, swelling, increased warmth or erythema. Elbows:. Normal pain-free range of motion without tenderness, swelling, increased warmth or erythema. Shoulders:.?? Full range of motion without pain. No tenderness, weakness, swelling, increased warmth or erythema. Hips:.? Full range of motion without pain. Hip bursa:.? No tenderness. Knees:.? Right:? No pain with extremes of normal flexion or extension.? There is some mild patellofemoral crepitus with no tenderness, no swelling, redness or warmth.? No popliteal tenderness or swelling.? Left:? No pain with extremes of flexion or extension.? There is slight medial tenderness but no swelling.? There is no anterior effusion, redness or warmth.? Ankles:? Right:? There is some valgus deformity at the ankle.? ? There is no pain with the extremes of normal inversion or eversion.? No redness or warmth.? Left:? Normal pain-free range of motion without tenderness, swelling, increased warmth or erythema. Feet:? Right:? 1st MTP has some bony enlargement and minimal tenderness.? There is no other area of tenderness or swelling in the small joints of the foot.? Her toes are not tender or swollen.? Left: Minimal bony enlargement at the 1st MTP without tenderness.? Otherwise she has normal pain-free range of motion without tenderness, swelling, increased warmth or erythema. ?? 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 RF pos CCP neg ulfasalazine started skin rash so it was stopped no additional treatment at that point Code(s): M05.80 - Other rheumatoid arthritis with rheumatoid factor of unspecified site Plan Rheumatoid arthritis with no clear signs of active inflammation currently. This is in distinction from the original presentation months ago. There also some mild changes of osteoarthritis in the hands. I think at this point it is still reasonable to continue this low dose of prednisone as it has been well tolerated. I told her to avoid the midday sun exposure when she takes the methotrexate. The likelihood of a sun related skin rash at her methotrexate this dose is of course very low. I also told her there was no scientific evidence to make any kind of dietary recommendation for her joint symptoms. She could certainly pursue any type of dietary manipulation within reason if she wishes. We would check lab work again before the next visit in about 3 months. Orders: Orders Alanine Aminotransferase Today M05.80 - Other rheumatoid arthritis with rheumatoid factor of unspecified site, Z79.899 - Other skilled nursing (current) drug therapy Aspartate Amino Transferase Today M05.80 - Other rheumatoid arthritis with rheumatoid factor of unspecified site, Z79.899 - Other skilled nursing (current) drug therapy Creatinine Today M05.80 - Other rheumatoid arthritis with rheumatoid factor of unspecified site, Z79.899 - Other skilled nursing (current) drug therapy C Reactive Protein Today M05.80 - Other rheumatoid arthritis with rheumatoid factor of unspecified site Complete Blood Count Auto Diff Today M05.80 - Other rheumatoid arthritis with rheumatoid factor of unspecified site, Z79.899 - Other intermediate project manager (current) drug therapy Erythrocyte Sedimentation Rate Today M05.80 - Other rheumatoid arthritis with rheumatoid factor of unspecified site Coding Level of Care Code Est Pt Level 3 (60788) Diagnoses termite technician use of drug Z79.899 Osteoarthritis of hands, bilateral M19.041; M19.042 Seropositive erosive rheumatoid arthritis M05.80
== END 2022-09-07 11:54 | disposition home or self-care (01) ==
PROVIDERS: Visit Provider Internal Medicine Rheumatology
DX: Z79.899 Other long term (current) drug therapy (principal); M19.041 Primary osteoarthritis, right hand; M19.042 Primary osteoarthritis, left hand; M05.80 Other rheumatoid arthritis with rheumatoid factor of unspecified site
CPT/HCPCS: 99213

== ENCOUNTER → 2022-09-07 11:26 | Outpatient (BNVA) | payer OTHER, SELFPAY | PROVIDERS: Visit Provider Internal Medicine Rheumatology ==

== ENCOUNTER 2022-11-25 15:08 | Outpatient (REF) | payer OTHER, SELFPAY ==
[2022-11-25 17:19] LABS: Erythrocyte Sedimentation Rate 10 MM/HR (0-20)
[2022-11-25 17:23] LABS: Alanine Aminotransferase 11 U/L (0-31); Aspartate Amino Transferase 16 U/L (5-31); C Reactive Protein 0.17 mg/dL (< or = 0.50); Estimated Glomerular Filt Rate > 60
== END 2022-11-25 15:09 | disposition home or self-care (01) ==
LOC: HO.HMGCLDS 15:08
PROVIDERS: PCP Nurse Practitioner Family; Visit Provider Internal Medicine Rheumatology
DX: M05.80 Other rheumatoid arthritis with rheumatoid factor of unspecified site (principal); Z79.899 Other long term (current) drug therapy
CPT/HCPCS: 36415; 82565; 84450; 84460; 85025; 85652; 86140

== ENCOUNTER 2022-12-02 11:17 | Outpatient (AMB) | payer OTHER, SELFPAY ==
--- NOTE | 2022-12-02 11:26 | A.OFFVIS_ITS ---
Intake Vital Signs 12/02/22 11:27 Height 5 ft Weight 137 lb BMI 26.8 BP 98/76 Blood Pressure Location Rt brachial Position Sitting Pulse 87 Pulse Source Pulse Oximeter Temp 97.8 F Temp Source Skin Pulse Oximetry (%) 97 Oxygen Delivery Method Room Air Intake Visit Reasons: ra Intake Note: Patient presents today to follow up on RA. c/o right ankle pain, limping, x couple weeks Plant Buyer Required: No Accompanied by: Self / Same As Patient Allergies sulfasalazine Allergy (Intermediate, Verified 12/02/22 11:26) Hives morphine [Morphine] Allergy (Mild, Verified 12/02/22 11:26) HYPOTENSION hydrocodone [From Vicodin] Adverse Reaction (Mild, Verified 12/02/22 11:26) NAUSEA & VOMITING indomethacin [From Indocin] Adverse Reaction (Mild, Verified 12/02/22 11:26) MIGRAINE HEADACHE Penicillins Adverse Reaction (Mild, Verified 12/02/22 11:26) TACHYACRDIA prednisolone Adverse Reaction (Verified 12/02/22 11:26) Hives Medication List - Last Reconciled 12/02/22 by Yehuda Echols MD estradiol 0.01%(0.1mg/gram) vaginal folic acid 1 mg PO DAILY ibuprofen 600 mg PO Q6H PRN methotrexate sodium 7.5 mg (3 x 2.5 mg) PO QWEEK HPI HPI Comments History of Present Illness Details The patient returns today for evaluation of her rheumatoid arthritis. She in general is feeling okay. There is some discomfort on the medial aspect of the right ankle and in the neck region. The feet seem to be worse with weight-bearing activity and the neck is worse when she first gets up in the morning. She does not recall any old injury to these areas. She did have a fracture of the left ankle years ago and has some hardware in place. That ankle does not bother her presently. She remains on 7.5 mg weekly methotrexate and folic acid 1 mg daily. Sometimes she supplements this, when she has pain, with 600 mg of ibuprofen. She had been taking the methotrexate relatively infrequently because of abdominal discomfort attributed diverticulitis. She eventually did have a colonoscopy and had no further problems. She did have some precancerous lesions removed from the colon she says. [facility]LY [facility], [facility]1983 Medical History Diverticulitis No known health problems Surgical History (Reviewed 12/02/22 @ 11: by MERYL Jacques) History of colon resection Social History (Reviewed 12/02/22 @ 11: by MERYL Jacques) Household Members: Spouse Housing: House Are you a primary care coordination manager to a significant other at home: No Do you presently have visiting nurse or other home services: No Alcohol intake: never Patient Tobacco Use Status: Never used Tobacco e-Cigarette/Vaping Use: Never Used service: No Current occupational status: retired Review of Systems Const Details: Negative for appetite change, weight change, fever, chills, malaise and fatigue Eyes Details: Negative for vision change, dry eyes,headaches and dizziness ENT Details: Negative for hearing change, tinnitus, oral ulcer, nose bleeds and oral dryness. Card Details: Negative chest pain, edema and syncope Resp Details: Negative for SOB, cough and wheezing GI Details: Negative indigestion/heartburn, nausea, abdominal pain, bowel changes, diarrhea, constipation and bloody stool. Jordan/Lymph Details: Negative for excessive bruising or bleeding. Physical Exam Vital Signs: Last Vital Signs Temp 97.8 F 12/02/22 11:27 Pulse 87 12/02/22 11:27 BP 98/76 12/02/22 11:27 Pulse Ox 97 12/02/22 11:27 Oxygen Delivery Method Room Air 12/02/22 11:27 BMI result Body Mass Index 26.8 APPEARANCE: Patient in no acute distress EXTREMITIES: No edema, no calf tenderness, normal peripheral pulses. JOINT EXAM: Cervical Spine:? Mild pain with extremes of normal rotation or lateral flexion. The pain is felt mostly over the so posterior cervical muscle region is where there is some slight tenderness. Thoracic Spine:? No scoliosis.? No tenderness on palpation. Lumbar Spine:.? Alignment normal.? Full range of motion without pain, no tenderness. Chest Wall:.? No tenderness, swelling, increased warmth or erythema. Hands:? Right:?? The MCPs have no swelling or tenderness. Slight thickening of the thumb IP and the 2nd PIP but these joints are not tender.? There is mild slightly tender bony enlargement at the 5th PIP.? No flexor tendon triggering, thenar atrophy or sensory loss.? Left:? Normal pain-free range of motion.? There is no MCP swelling or tenderness.? The? She has slight tenderness along the flexor tendon of the thumb.? There is nontender bony enlargement at the thumb IP in the thumb CMC joint.? There is some nodularity to the 4th flexor tendon in the 4th proximal phalanx.? There is no redness or warmth.? It is mildly tender.? No triggering is appreciated.? Wrists:.? Normal pain-free range of motion without tenderness, swelling, increased warmth or erythema. Elbows:. Normal pain-free range of motion without tenderness, swelling, increased warmth or erythema. Shoulders:.?? Full range of motion without pain. No tenderness, weakness, swelling, increased warmth or erythema. Hips:.? Full range of motion without pain. Hip bursa:.? No tenderness. Knees:.? Right:? No pain with extremes of normal flexion or extension.? There is some mild patellofemoral crepitus with no tenderness, no swelling, redness or warmth.? No popliteal tenderness or swelling.? Left:? No pain with extremes of flexion or extension.? There is slight medial tenderness but no swelling.? There is no anterior effusion, redness or warmth.? Ankles:? Right:? There is some valgus deformity at the ankle.? ? There is mild discomfort with the extremes of normal inversion or eversion.? There is some mild medial tenderness without swelling,redness or warmth.? Left:? Normal pain- free range of motion without tenderness, swelling, increased warmth or erythema. Feet:? Right:? 1st MTP has some bony enlargement and minimal tenderness.? There is no other area of tenderness or swelling in the small joints of the foot.? Her toes are not tender or swollen.? Left: Minimal bony enlargement at the 1st MTP without tenderness.? Otherwise she has normal pain-free range of motion without tenderness, swelling, increased warmth or erythema. ?? ? Results Reviewed Results Reviewed: Laboratory Tests 11/25/22 15:15 WBC 8.5 Hgb 12.9 ESR 10 Creatinine 0.71 AST 16 ALT 11 C-Reactive Protein 0.17 Assessment & Plan Assessment & Plan (1) Ankle pain, right: Code(s): M25.571 - Pain in right ankle and joints of right foot (2) intermediate manager use of drug: Code(s): Z79.899 - Other alf (current) drug therapy (3) Osteoarthritis of hands, bilateral: Code(s): M19.041 - Primary osteoarthritis, right hand; M19.042 - Primary osteoarthritis, left hand (4) Seropositive erosive rheumatoid arthritis: Comment: Onset 2021. RF pos CCP neg ulfasalazine started skin rash so it was stopped no additional treatment at that point Code(s): M05.80 - Other rheumatoid arthritis with rheumatoid factor of unspecified site Plan The synovitis from the RA seems controlled with current treatment. There is some tenderness in the hands consistent with osteoarthritis in a few of the other joints. The cervical pain is likely due to OA as well. She seems to indicate she wants something done about that so we will get an x-ray and consider physical therapy referral. The ankle pain on the right I think is related to the valgus deformity. She might have old tendon damage in that region. I do not think there is much in the way of active synovitis does giving her symptoms in that region. She may benefit from a podiatry evaluation if those symptoms continue. Otherwise she will stay with the current dose of methotrexate. We will check lab work before return visit in about 3 months. Orders: Orders XR cervical spine 3V Today M05.80 - Other rheumatoid arthritis with rheumatoid factor of unspecified site Alanine Aminotransferase Today M05.80 - Other rheumatoid arthritis with rheumatoid factor of unspecified site, Z79.899 - Other ocean transportation intermediary (current) drug therapy Aspartate Amino Transferase Today M05.80 - Other rheumatoid arthritis with rheumatoid factor of unspecified site, Z79.899 - Other alf (current) drug therapy Complete Blood Count Auto Diff Today M05.80 - Other rheumatoid arthritis with rheumatoid factor of unspecified site, Z79.899 - Other alf (current) drug therapy Creatinine Today M05.80 - Other rheumatoid arthritis with rheumatoid factor of unspecified site, Z79.899 - Other ocean transportation intermediary (current) drug therapy Erythrocyte Sedimentation Rate Today M05.80 - Other rheumatoid arthritis with rheumatoid factor of unspecified site C Reactive Protein Today M05.80 - Other rheumatoid arthritis with rheumatoid factor of unspecified site Coding Level of Care Code Est Pt Level 3 (00233) Diagnoses Ankle pain, right M25.571 intermediate manager use of drug Z79.899 Osteoarthritis of hands, bilateral M19.041; M19.042 Seropositive erosive rheumatoid arthritis M05.80
[2022-12-02 11:27] VITALS: BP 98/76; PULSE 87; TEMP 36.6; O2SAT 97; BMI 26.8
== END 2022-12-02 12:01 | disposition home or self-care (01) ==
PROVIDERS: Visit Provider Internal Medicine Rheumatology
DX: M25.571 Pain in right ankle and joints of right foot (principal); Z79.899 Other long term (current) drug therapy; M19.041 Primary osteoarthritis, right hand; M19.042 Primary osteoarthritis, left hand; M05.80 Other rheumatoid arthritis with rheumatoid factor of unspecified site
CPT/HCPCS: 99213

== ENCOUNTER → 2022-12-02 11:17 | Outpatient (BNVA) | payer OTHER, SELFPAY | PROVIDERS: Visit Provider Internal Medicine Rheumatology ==

== ENCOUNTER 2022-12-02 12:33 | Outpatient (REF) | payer OTHER, SELFPAY ==
--- NOTE | ~2022-12-02 | XR_ITS ---
EXAMINATION: XR CERVICAL SPINE CLINICAL INFORMATION: Rheumatoid arthritis and rheumatoid factor COMPARISON: None available. TECHNIQUE: 3 views of the cervical spine were obtained. FINDINGS: Straightening of the normal cervical lordosis. The bones are diffusely demineralized. Minimal anterolisthesis of C3 on C4, C4 on C5, and C5 on C6 Advanced multilevel cervical spondylosis with hypertrophic change at Q9-C5-9-C7-T1 levels with loss of disc space height most notable at C5-C6. XR/XR cervical spine 3V IMPRESSION: Advanced multilevel degenerative changes most notable at C5-C6.
== END 2022-12-02 12:34 | disposition home or self-care (01) ==
LOC: HO.HMGCX 12:33
PROVIDERS: PCP Nurse Practitioner Family; Visit Provider Internal Medicine Rheumatology
DX: M05.80 Other rheumatoid arthritis with rheumatoid factor of unspecified site (principal)
CPT/HCPCS: 72040

== ENCOUNTER 2023-01-26 14:28 | Outpatient (REF) | payer OTHER, SELFPAY ==
[2023-01-26 16:10] LABS: MANUAL DIFF FLAG NO
[2023-01-26 16:24] LABS: Basophils Absolute Auto 0.1 X10*3/uL (0.0-0.2); Basophils Percent Auto 0.7 % (0-2); Eosinophils Absolute Auto 0.1 X10*3/uL (0.0-0.4); Eosinophils Percent Auto 1.5 % (0-4); Hematocrit 39.9 % (37.0-47.0); Hemoglobin 13.1 g/dl (12.0-16.0); Imm Gran Abs Auto 0.02 X10*3/uL (0.00-0.03); Imm Gran Pct Auto 0.3 % (0.0-0.4); Lymphocytes Absolute Auto 2.8 X10*3/uL (1.2-4.9); Lymphocytes Percent Auto 38.7 % (20-40); Mean Corpuscular HGB Conc 32.8 g/dl (31.0-35.0); Mean Corpuscular Hemoglobin 30.3 pg (27.0-33.0); Mean Corpuscular Volume 92.4 fL (80.0-98.0); Mean Platelet Volume 9.6 fL (9.4-12.3); Monocytes Absolute Auto 0.6 X10*3/uL (0.1-1.2); Monocytes Percent Auto 8.9 % (2-11); Neutrophils Absolute Auto 3.6 x10*3/uL (2.0-8.3); Neutrophils Percent Auto 49.9 % (45-73); Platelet Count 285 X10*3/uL (160-400); Red Blood Count 4.32 X10*6/uL (4.20-5.50); Red Cell Distribution Width 14.8 % (11.0-16.0); White Blood Count 7.2 X10*3/uL (4.8-10.8)
[2023-01-26 16:33] LABS: Alanine Aminotransferase 13 U/L (0-31); Aspartate Amino Transferase 16 U/L (5-31); C Reactive Protein 0.23 mg/dL (< or = 0.50); Estimated Glomerular Filt Rate > 60
[2023-01-26 17:26] LABS: Erythrocyte Sedimentation Rate 10 MM/HR (0-20)
== END 2023-01-26 14:29 | disposition home or self-care (01) ==
LOC: HO.HMGCLDS 14:28
PROVIDERS: PCP Nurse Practitioner Family; Visit Provider Internal Medicine Rheumatology
DX: M05.80 Other rheumatoid arthritis with rheumatoid factor of unspecified site (principal); Z79.899 Other long term (current) drug therapy
CPT/HCPCS: 36415; 82565; 84450; 84460; 85025; 85652; 86140

== ENCOUNTER 2023-02-03 14:38 | Outpatient (AMB) | payer OTHER, SELFPAY ==
[2023-02-03 15:40] VITALS: BP 132/76; PULSE 95; O2SAT 96; BMI 26.6
--- NOTE | 2023-02-03 15:40 | AM.OFFWIN_ITS ---
Intake Vital Signs 02/03/23 15:40 Height 5 ft Weight 136 lb BMI 26.6 BP 132/76 Blood Pressure Location Lt brachial Position Sitting Pulse 95 Pulse Source Pulse Oximeter Pulse Oximetry (%) 96 Oxygen Delivery Method Room Air Intake Visit Reasons: [employer] Sore Throat, cough, headache [phone] Intake Note: Pt is here today for a walk in visit. Pt c/o sore throat,cough, headaches for a week and a half. Patient Tobacco Use Status: Never used Tobacco Allergies sulfasalazine Allergy (Intermediate, Verified 02/03/23 16:11) Hives morphine [Morphine] Allergy (Mild, Verified 02/03/23 16:11) HYPOTENSION levofloxacin Allergy (Verified 02/03/23 16:11) Unknown hydrocodone [From Vicodin] Adverse Reaction (Mild, Verified 02/03/23 16:11) NAUSEA & VOMITING indomethacin [From Indocin] Adverse Reaction (Mild, Verified 02/03/23 16:11) MIGRAINE HEADACHE Penicillins Adverse Reaction (Mild, Verified 02/03/23 16:11) TACHYACRDIA prednisolone Adverse Reaction (Verified 02/03/23 16:11) Hives Medication List - Last Reconciled 02/03/23 by Ray Barrios MD estradiol 0.01%(0.1mg/gram) vaginal folic acid 1 mg PO DAILY ibuprofen 600 mg PO Q6H PRN methotrexate sodium 7.5 mg (3 x 2.5 mg) PO QWEEK HPI [employer] Sore Throat, cough, headache [phone] HPI Details 72-year-old female presents to the [facility] for a sick visit. Patient is reporting symptoms of sore throat, fatigue in her legs and nonspecific abdominal discomfort. According to the patient, she ate a box of cereal that was recalled for Salmonella. No fevers or chills. No diarrhea. No nausea or vomiting. She tested negative for COVID twice at home. [facility] Medical History Diverticulitis No known health problems Surgical History History of colon resection Social History Household Members: Spouse Housing: House Are you a primary med care manager to a significant other at home: No Do you presently have visiting nurse or other home services: No 75 years or older and lives alone: No Alcohol intake: never Patient Tobacco Use Status: Never used Tobacco e-Cigarette/Vaping Use: Never Used service: No Current occupational status: retired Physical Exam Vital Signs: Last Vital Signs Pulse 95 02/03/23 15:40 BP 132/76 02/03/23 15:40 Pulse Ox 96 02/03/23 15:40 Oxygen Delivery Method Room Air 02/03/23 15:40 BMI result Body Mass Index 26.6 Const General: cooperative and healthy appearing Nutritional Appearance: well nourished Orientation/consciousness: patient oriented x3 Limitations: no limitations HEENT Head: Yes normal to inspection Eyes General: appearance normal, both eyes and all related structures Neck Neck: Yes normal visual inspection Chest Chest palpation & inspection: normal palpation of entire chest wall Resp Effort & Inspection: normal respiratory effort Neuro General: patient oriented x3 Results AMB Rapid Strep AMB Rapid Strep Negative Last Edit by MERYL Soto on 02/03/23 16: 01 Results Reviewed Results Reviewed: Laboratory Last Values Strep Scn [facility] Negative 02/03/23 15:52 Assessment & Plan Assessment & Plan (1) Upper respiratory tract infection: Code(s): J06.9 - Acute upper respiratory infection, unspecified Plan: Strep test is negative. Viral swab for RSV done. Will call with results. Self-limiting illness. No antibiotics needed. Orders: Orders AMB Rapid Strep Screen Today Z13.9 - Encounter for screening, unspecified Coding Level of Care Code Est Pt Level 3 (71802) Diagnoses Upper respiratory tract infection J06.9
== END 2023-02-03 17:07 | disposition home or self-care (01) ==
PROVIDERS: PCP Nurse Practitioner Family; Visit Provider Internal Medicine
DX: J06.9 Acute upper respiratory infection, unspecified (principal); Z68.26 Body mass index [BMI] 26.0-26.9, adult
CPT/HCPCS: 87880; 99213

== ENCOUNTER 2023-02-04 10:34 | Outpatient (REF) | payer OTHER, SELFPAY ==
[2023-02-04 13:00] LABS: Influenza A PCR NEGATIVE (Negative); Influenza B PCR NEGATIVE (Negative); Resp Syncy Virus RNA Qual PCR NEGATIVE (Negative); SARS COV2 PCR INHOUSE NEGATIVE (Negative)
== END 2023-02-04 10:35 | disposition home or self-care (01) ==
LOC: HO.HMGCLNP 10:34
PROVIDERS: Visit Provider Internal Medicine
DX: Z11.52 Encounter for screening for COVID-19 (principal); Z20.822 Contact with and (suspected) exposure to COVID-19; R09.89 Other specified symptoms and signs involving the circulatory and respiratory systems
CPT/HCPCS: 0241U

== ENCOUNTER 2023-02-26 11:36 | Outpatient (AMB) | payer OTHER, SELFPAY ==
--- NOTE | 2023-02-26 13:14 | MHC.OFFWIV ---
Intake Vital Signs 02/26/23 13:29 Height 5 ft Weight 139 lb BMI 27.1 BP 128/70 Blood Pressure Location Lt brachial Position Sitting Pulse 85 Pulse Source Pulse Oximeter Temp 97.3 F Temp Source Temporal Artery Scan Pulse Oximetry (%) 99 Oxygen Delivery Method Room Air Intake Visit Reasons: EST/sore throat/ head aches ([phone]) Intake Note: pt is here today for sore throat headache started 2 weeks ago Patient Tobacco Use Status: Never used Tobacco Allergies sulfasalazine Allergy (Intermediate, Verified 02/26/23 13:15) Hives morphine [Morphine] Allergy (Mild, Verified 02/26/23 13:15) HYPOTENSION levofloxacin Allergy (Verified 02/26/23 13:15) Unknown hydrocodone [From Vicodin] Adverse Reaction (Mild, Verified 02/26/23 13:15) NAUSEA & VOMITING indomethacin [From Indocin] Adverse Reaction (Mild, Verified 02/26/23 13:15) MIGRAINE HEADACHE Penicillins Adverse Reaction (Mild, Verified 02/26/23 13:15) TACHYACRDIA prednisolone Adverse Reaction (Verified 02/26/23 13:15) Hives Medication List - Last Reconciled 02/26/23 by Mary Zuleta NP azithromycin 500 mg PO DAILY 5 days estradiol 0.01%(0.1mg/gram) vaginal folic acid 1 mg PO DAILY ibuprofen 600 mg PO Q6H PRN methotrexate sodium 7.5 mg (3 x 2.5 mg) PO QWEEK Do you need a note to return to daycare/school/sports/work: No PFSH Medical History Diverticulitis No known health problems Surgical History History of colon resection Social History Household Members: Spouse Housing: House Are you a primary director of career services to a significant other at home: No Do you presently have visiting nurse or other home services: No Alcohol intake: never Patient Tobacco Use Status: Never used Tobacco e-Cigarette/Vaping Use: Never Used service: No Current occupational status: retired Review of Systems Const All systems reviewed & are unremarkable except as noted in HPI and below Physical Exam Vital Signs: Last Vital Signs Temp 97.3 F 02/26/23 13:29 Pulse 85 02/26/23 13:29 BP 128/70 02/26/23 13:29 Pulse Ox 99 02/26/23 13:29 Oxygen Delivery Method Room Air 02/26/23 13:29 BMI result Body Mass Index 27.1 Const General: no acute distress; No comfortable HEENT Head: Yes normocephalic Ears: external ears normal and TM's normal bilaterally General nose exam: Abnormal mucous membranes and turbinates present boggy and erythematous and Nasal discharge present Face and sinus: Yes sinus tenderness Mouth: moist mucous membranes Throat: Yes tonsils normal, Yes uvula midline and Yes postnasal drainage Resp Effort & Inspection: normal respiratory effort Auscultation: no crackles, no rales, no rhonchi and wheezes scattered wheezes and throughout Cardio Rate: regular rate Rhythm: regular rhythm Results AMB Rapid Strep AMB Rapid Strep Negative Last Edit by Rogelio Jefferson CMA on 02/26/23 13:34 Results Reviewed Results Reviewed: Laboratory Last Values Strep Scn [facility] Negative 02/26/23 13:34 Assessment & Plan Assessment & Plan (1) Upper respiratory tract infection: Code(s): J06.9 - Acute upper respiratory infection, unspecified Qualifiers: URI type: unspecified viral URI Qualified Code(s): J06.9 - Acute upper respiratory infection, unspecified Plan: - Rest and hydrate well - SARs - Zpack for symptom relief. - Chest Xray ordered. (2) Acute pharyngitis: Code(s): J02.9 - Acute pharyngitis, unspecified Qualifiers: Pharyngitis/tonsillitis etiology: other specified organisms Qualified Code(s): J02.8 - Acute pharyngitis due to other specified organisms Plan: - Rest and hydrate well - SARs - Zpack for symptom relief. - Chest Xray ordered. Orders: Orders XR chest 2V Today J06.9 - Acute upper respiratory infection, unspecified AMB Rapid Strep Screen Today Z13.9 - Encounter for screening, unspecified SARS-CoV2/FLU/RSV Today J02.8 - Acute pharyngitis due to other specified organisms, J06.9 - Acute upper respiratory infection, unspecified Medications: New azithromycin 500 mg PO DAILY 5 days 5 tabs 0RF Coding Level of Care Code Est Pt Level 3 (00121) Diagnoses Viral upper respiratory tract infection J06.9 URI type: unspecified viral URI Acute pharyngitis due to other specified organisms J02.8 Pharyngitis/tonsillitis etiology: other specified organisms Time Spent (min) 15
[2023-02-26 13:29] VITALS: BP 128/70; PULSE 85; TEMP 36.3; O2SAT 99; BMI 27.1
== END 2023-02-26 14:07 | disposition home or self-care (01) ==
PROVIDERS: PCP Nurse Practitioner Family; Visit Provider Nurse Practitioner Family
DX: J06.9 Acute upper respiratory infection, unspecified (principal); J02.9 Acute pharyngitis, unspecified
CPT/HCPCS: 87880; 99214

== ENCOUNTER 2023-02-26 13:47 | Outpatient (REF) | payer OTHER, SELFPAY ==
--- NOTE | ~2023-02-26 | XR_ITS ---
EXAMINATION: XR CHEST CLINICAL INFORMATION: Acute respiratory infection COMPARISON: Previous dated 03/30/2020 TECHNIQUE: 2 views of the chest were obtained. FINDINGS: No acute finding. Resolved left basilar process from previous. No evidence for an acute infiltrate. No effusion. The cardiac silhouette is within normal limits. The hilar regions do not appear pathologically enlarged. Some degeneration in the thoracic spine. No acute compression injury. XR/XR chest 2V IMPRESSION: No acute finding.
[2023-02-26 17:06] LABS: Influenza A PCR NEGATIVE (Negative); Influenza B PCR NEGATIVE (Negative); Resp Syncy Virus RNA Qual PCR NEGATIVE (Negative); SARS COV2 PCR INHOUSE NEGATIVE (Negative)
== END 2023-02-26 13:48 | disposition home or self-care (01) ==
LOC: HO.HMGCX 13:47
PROVIDERS: PCP Nurse Practitioner Family; Visit Provider Nurse Practitioner Family
DX: Z11.52 Encounter for screening for COVID-19 (principal); J06.9 Acute upper respiratory infection, unspecified; J02.9 Acute pharyngitis, unspecified
CPT/HCPCS: 0241U; 71046

== ENCOUNTER 2023-03-18 13:47 | Outpatient (REF) | payer OTHER, SELFPAY ==
--- NOTE | ~2023-03-18 | MR_ITS ---
EXAMINATION: MR BRAIN WITHOUT AND WITH CONTRAST CLINICAL INFORMATION: 72-year-old undergoing follow up status post resection of meningioma. COMPARISON: 02/26/2020 MRI, 02/23/2017 MRI. TECHNIQUE: Multiplanar, multisequence MRI of the brain was obtained before and after the intravenous administration of 6 mL Gadavist. FINDINGS: BRAIN VOLUME: No interval change from previous study. STRUCTURAL: Stable postoperative changes involving the left anterior frontal convexity with no interval change in postcraniotomy changes. BRAIN AND MENINGES: DWI sequence demonstrates no restricted diffusion to suggest acute or subacute cerebral ischemia. Stable parenchymal gliosis involving the anterior superior frontal lobes, left more than right with stable small foci of susceptibility-weighted artifact overlying both anterior frontal lobes, likely postoperative. No pathologic enhancement at the resection site adjacent to the resection cavity. Some thin, smooth dural enhancement is seen subjacent to the inferomedial aspect of the craniotomy flap likely unchanged from previous exam within the limitations of the comparison and consistent with postsurgical changes. No definite evidence for recurrent mass lesion. The remainder of the brain demonstrates a few small patchy zones of nonenhancing FLAIR/T2 signal hyperintensity in the white matter of both cerebral hemispheres posteriorly stable in appearance consistent with chronic ischemic microangiopathy. No new foci of parenchymal signal change is seen. 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 No extra-axial fluid collections, space-occupying process or mass effect are identified and there are no new intracranial mass lesions. Gradient refocused imaging demonstrates no new foci of brain parenchymal susceptibility-weighted signal loss to suggest hemorrhage, hemosiderin staining or abnormal mineralization. VENTRICLES AND SUBARACHNOID SPACES: The ventricular system and subarachnoid spaces are otherwise within normal range; there is no hydrocephalus. ORBITAL STRUCTURES: Bilateral lens extractions are stable. Otherwise, the visualized orbital structures are grossly unremarkable within the limitations of the study. VASCULAR: Signal voids are noted in the visualized major intracranial vessels. There is normal enhancement in the major dural venous sinuses, with some pacchionian granulations suspected in the left transverse sinus. OSSEOUS STRUCTURES, SINUSES/MASTOIDS, EXTRACRANIAL SOFT TISSUES: Left mastoid effusion is again noted similar to the previous exam, which is nonspecific. Correlate for clinical otologic disease on the left. Minor mucosal thickening in the ethmoid complex is stable. Bone marrow signal intensity is otherwise grossly within normal limits. There is bilateral upper cervical facet joint arthropathy similar to previous exam. MR/MR head/brain wo/w con IMPRESSION: 1. Stable postoperative changes involving the anterior frontal lobes, left more than right, with no definite evidence for recurrent mass lesion. Stable postcraniotomy changes on the left with probable postoperative dural enhancement along the anterior aspect of the resection cavity on the left. 2. 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 3. Left mastoid effusion similar to previous exam, which is nonspecific. Correlate for clinical otologic disease on the left.
[2023-03-18] MEDS: gadobutroL 7.5 ML VIAL IVPUSH (14:23)
== END 2023-03-18 13:48 | disposition home or self-care (01) ==
LOC: HO.MRI 13:47
PROVIDERS: PCP Nurse Practitioner Family; Visit Provider Neurological Surgery
DX: D43.2 Neoplasm of uncertain behavior of brain, unspecified (principal)
CPT/HCPCS: 70553; A9585

== ENCOUNTER 2023-03-23 12:36 | Outpatient (AMB) | payer OTHER, SELFPAY ==
[2023-03-23 12:39] VITALS: BP 116/72; PULSE 72; TEMP 36.3; O2SAT 98; BMI 27.1
--- NOTE | 2023-03-23 12:39 | A.OFFVIS_ITS ---
Intake Vital Signs 03/23/23 12:39 Height 5 ft Weight 138 lb 14.259 oz BMI 27.1 BP 116/72 Blood Pressure Location Lt brachial Position Sitting Pulse 72 Pulse Source Pulse Oximeter Temp 97.4 F Temp Source Skin Pulse Oximetry (%) 98 Oxygen Delivery Method Room Air Intake Visit Reasons: ra with wire drawer Intake Note: Patient last seen 12/02/[address] Echols, presents today for follow up and test results. Entry Level Accountant Required: No Accompanied by: Self / Same As Patient Allergies sulfasalazine Allergy (Intermediate, Verified 03/23/23 12:42) Hives morphine [Morphine] Allergy (Mild, Verified 03/23/23 12:42) HYPOTENSION levofloxacin Allergy (Verified 03/23/23 12:42) Unknown hydrocodone [From Vicodin] Adverse Reaction (Mild, Verified 03/23/23 12:42) NAUSEA & VOMITING indomethacin [From Indocin] Adverse Reaction (Mild, Verified 03/23/23 12:42) MIGRAINE HEADACHE Penicillins Adverse Reaction (Mild, Verified 03/23/23 12:42) TACHYACRDIA prednisolone Adverse Reaction (Verified 03/23/23 12:42) Hives HPI HPI Comments History of Present Illness Details Ms. Mims, 72 yoF returns today for evaluation of her rheumatoid arthritis. She has been off MTX for about 1 month due to COVID-infection which is now resolved. However, she in general is feeling okay and had no flares. She does continue with discomfort on the medial and lateral aspect of the right ankle. The feet seem to be worse with weight-bearing activity. She did have a fracture of the left ankle years ago and has some hardware in place. That ankle does not bother her presently. She remains on 7.5 mg weekly methotrexate and folic acid 1 mg daily. Sometimes she supplements this, when she has pain, with 600 mg of ibuprofen. History: At one point in the past she was taking the methotrexate relatively infrequently because of abdominal discomfort attributed diverticulitis. She eventually did have a colonoscopy and had no further problems. She did have some precancerous lesions removed from the colon. [facility] Medical History Diverticulitis No known health problems Surgical History History of colon resection Social History Household Members: Spouse Housing: House Are you a primary health care facility administrator to a significant other at home: No Do you presently have visiting nurse or other home services: No 75 years or older and lives alone: No Alcohol intake: never Patient Tobacco Use Status: Never used Tobacco e-Cigarette/Vaping Use: Never Used service: No Current occupational status: retired Review of Systems Const All systems reviewed & are unremarkable except as noted in HPI and below Physical Exam Vital Signs: Last Vital Signs Temp 97.4 F 03/23/23 12:39 Pulse 72 03/23/23 12:39 BP 116/72 03/23/23 12:39 Pulse Ox 98 03/23/23 12:39 Oxygen Delivery Method Room Air 03/23/23 12:39 BMI result Body Mass Index 27.1 APPEARANCE: Patient in no acute distress EXTREMITIES: No edema, no calf tenderness, normal peripheral pulses. JOINT EXAM: Cervical Spine:? Mild pain with extremes of normal rotation or lateral flexion. The pain is felt mostly over the so posterior cervical muscle region is where there is some slight tenderness. Thoracic Spine:? No scoliosis.? No tenderness on palpation. Lumbar Spine:.? Alignment normal.? Full range of motion without pain, no tenderness. Chest Wall:.? No tenderness, swelling, increased warmth or erythema. Hands:? Right:?? The MCPs have no swelling or tenderness. Slight thickening of the thumb IP and the 2nd PIP but these joints are not tender.? There is no more slightly tender bony enlargement at the 5th PIP.? No flexor tendon triggering, thenar atrophy or sensory loss.? Left:? Normal pain-free range of motion.? There is no MCP swelling or tenderness.? She has slight tenderness along the flexor tendon of the thumb.? There is nontender bony enlargement at the thumb IP in the thumb CMC joint.? There is some nodularity to the 4th flexor tendon in the 4th proximal phalanx.? There is no redness or warmth.? It is mildly tender.? No triggering is appreciated.? Wrists:.? Normal pain-free range of motion without tenderness, swelling, increased warmth or erythema. Elbows:. Normal pain-free range of motion without tenderness, swelling, increased warmth or erythema. Shoulders:.?? Full range of motion without pain. No tenderness, weakness, swelling, increased warmth or erythema. Hips:.? Full range of motion without pain. Hip bursa:.? No tenderness. Knees:.? Right:? No pain with extremes of normal flexion or extension.? There is some mild patellofemoral crepitus with no tenderness, no swelling, redness or warmth.? No popliteal tenderness or swelling.? Left:? No pain with extremes of flexion or extension.? There is slight medial tenderness but no swelling.? There is no anterior effusion, redness or warmth.? Ankles:? Right:? There is some valgus deformity at the ankle.? ? There is mild discomfort with the extremes of normal inversion or eversion.? There is some mild medial and lateral tenderness on palpation without swelling,redness or warmth.? Left:? Normal pain-free range of motion without tenderness, swelling, increased warmth or erythema. Feet:? Right:? 1st MTP has some bony enlargement and minimal tenderness.? There is no other area of tenderness or swelling in the small joints of the foot.? Her toes are not tender or swollen.? Left: Minimal bony enlargement at the 1st MTP without tenderness.? Otherwise she has normal pain-free range of motion without tenderness, swelling, increased warmth or erythema. ?? ? Results Reviewed Results Reviewed: Laboratory Tests 11/25/22 15:15 WBC 8.5 Hgb 12.9 ESR 10 Creatinine 0.71 AST 16 ALT 11 C-Reactive Protein 0.17 Laboratory Tests 01/26/23 14:52 WBC 7.2 RBC 4.32 Hgb 13.1 Hct 39.9 ESR 10 Creatinine 0.82 Estimated GFR > 60 AST 16 ALT 13 C-Reactive Protein 0.23 Assessment & Plan Assessment & Plan (1) Ankle pain, right: Code(s): M25.571 - Pain in right ankle and joints of right foot Qualifiers: Chronicity: chronic Qualified Code(s): M25.571 - Pain in right ankle and joints of right foot; G89.29 - Other chronic pain (2) detention use of drug: Code(s): Z79.899 - Other custodial (current) drug therapy (3) Osteoarthritis of hands, bilateral: Code(s): M19.041 - Primary osteoarthritis, right hand; M19.042 - Primary osteoarthritis, left hand Qualifiers: Osteoarthritis type: primary Qualified Code(s): M19.041 - Primary osteoarthritis, right hand; M19.042 - Primary osteoarthritis, left hand (4) Seropositive erosive rheumatoid arthritis: Comment: Onset 2021. RF pos CCP neg ulfasalazine started skin rash so it was stopped no additional treatment at that point Code(s): M05.80 - Other rheumatoid arthritis with rheumatoid factor of unspecified site Plan #SeroPos RA: Ms. Mims 72 yoF here for follow-up of RA and the synovitis from the RA seems controlled with current treatment. It is good to see that she had no RA flare despite not taking MTX for 1 month. She will stay with the current dose of methotrexate 7.5mg QW and FOlic Acid 1 mg daily. We will check lab work i week before return visit in about 3 months. #OA of multiple Joints: There is some tenderness in the hands consistent with osteoarthritis in a few of the other joints. The cervical pain is likely due to OA as well. The ankle pain on the right is likely related to the pes planus. She might have old tendon damage in that region as she did have active tendinitis in the past. She does have arch support and it has helped. I showed her some exercises to do to help strengthen the ankles. There is no active synovitis seen there that would be giving her symptoms in that region. She has an upcoming podiatry visit for the ankle. Orders: Orders C Reactive Protein Today M05.80 - Other rheumatoid arthritis with rheumatoid factor of unspecified site, M17.0 - Bilateral primary osteoarthritis of knee, M19.041 - Primary osteoarthritis, right hand, M19.042 - Primary osteoarthritis, left hand Complete Blood Count Auto Diff Today M05.80 - Other rheumatoid arthritis with rheumatoid factor of unspecified site, M17.0 - Bilateral primary osteoarthritis of knee, M19.041 - Primary osteoarthritis, right hand, M19.042 - Primary osteoarthritis, left hand, Z79.899 - Other terminal gauger supervisor (current) drug therapy Comprehensive Met. Panel Today M05.80 - Other rheumatoid arthritis with rheumatoid factor of unspecified site, M17.0 - Bilateral primary osteoarthritis of knee, M19.041 - Primary osteoarthritis, right hand, M19.042 - Primary osteoarthritis, left hand Erythrocyte Sedimentation Rate Today M05.80 - Other rheumatoid arthritis with rheumatoid factor of unspecified site, M17.0 - Bilateral primary osteoarthritis of knee, M19.041 - Primary osteoarthritis, right hand, M19.042 - Primary osteoarthritis, left hand Medications: Refilled methotrexate sodium 7.5 mg (3 x 2.5 mg) PO QWEEK 12 tabs 2RF M05.80 - Other rheumatoid arthritis with rheumatoid factor of unspecified site Coding Level of Care Code Est Pt Level 3 (30444) Diagnoses Chronic pain of right ankle M25.571; G89.29 Chronicity: chronic detention use of drug Z79.899 Primary osteoarthritis of both hands M19.041; M19.042 Osteoarthritis type: primary Seropositive erosive rheumatoid arthritis M05.80
== END 2023-03-23 13:39 | disposition home or self-care (01) ==
PROVIDERS: PCP Nurse Practitioner Family; Visit Provider Nurse Practitioner Family
DX: M25.571 Pain in right ankle and joints of right foot (principal); G89.29 Other chronic pain; Z79.899 Other long term (current) drug therapy; M19.041 Primary osteoarthritis, right hand; M19.042 Primary osteoarthritis, left hand; M05.80 Other rheumatoid arthritis with rheumatoid factor of unspecified site
CPT/HCPCS: 99213

== ENCOUNTER → 2023-03-23 12:36 | Outpatient (BNVA) | payer OTHER, SELFPAY | PROVIDERS: PCP Nurse Practitioner Family; Visit Provider Nurse Practitioner Family ==

== ENCOUNTER 2023-06-15 13:06 | Outpatient (REF) | payer OTHER, SELFPAY ==
[2023-06-15 16:03] LABS: MANUAL DIFF FLAG NO
[2023-06-15 16:09] LABS: Basophils Percent Auto 0.6 % (0-2); Eosinophils Absolute Auto 0.1 X10*3/uL (0.0-0.4); Hematocrit 39.9 % (37.0-47.0); Hemoglobin 13.4 g/dl (12.0-16.0); Imm Gran Abs Auto 0.01 X10*3/uL (0.00-0.03); Imm Gran Pct Auto 0.1 % (0.0-0.4); Lymphocytes Absolute Auto 2.8 X10*3/uL (1.2-4.9); Lymphocytes Percent Auto 41.6 % (20-40); Mean Corpuscular HGB Conc 33.6 g/dl (31.0-35.0); Mean Corpuscular Volume 92.4 fL (80.0-98.0); Monocytes Absolute Auto 0.6 X10*3/uL (0.1-1.2); Monocytes Percent Auto 8.3 % (2-11); Neutrophils Absolute Auto 3.3 x10*3/uL (2.0-8.3); Neutrophils Percent Auto 48.4 % (45-73); Platelet Count 269 X10*3/uL (160-400); Red Blood Count 4.32 X10*6/uL (4.20-5.50); Red Cell Distribution Width 15.8 % (11.0-16.0); White Blood Count 6.8 X10*3/uL (4.8-10.8)
[2023-06-15 16:45] LABS: Alanine Aminotransferase 17 U/L (0-31); Albumin Level 3.9 g/dL (3.5-5.0); Alkaline Phosphatase 56 U/L (39-117); Anion Gap 15 (12-20); Aspartate Amino Transferase 16 U/L (5-31); Bilirubin Total 0.6 mg/dL (0.0-1.0); Blood Urea Nitrogen 13 mg/dL (9-16); C Reactive Protein 0.22 mg/dL (< or = 0.50); Calcium 9.6 mg/dL (8.4-10.2); Carbon Dioxide 24 mmol/L (22-29); Chloride 106 mmol/L (96-108); Estimated Glomerular Filt Rate > 60; Glucose Random 128 mg/dL (60-115); Potassium 3.7 mmol/L (3.3-5.1); Sodium 141 mmol/L (135-145); Total Protein 6.8 g/dL (6.5-8.0)
[2023-06-15 16:57] LABS: Erythrocyte Sedimentation Rate 6 MM/HR (0-20)
== END 2023-06-15 13:07 | disposition home or self-care (01) ==
LOC: HO.HMGCLDS 13:06
PROVIDERS: PCP Nurse Practitioner; Visit Provider Nurse Practitioner Family
DX: M05.80 Other rheumatoid arthritis with rheumatoid factor of unspecified site (principal); M19.041 Primary osteoarthritis, right hand; M19.042 Primary osteoarthritis, left hand; M17.0 Bilateral primary osteoarthritis of knee; Z79.899 Other long term (current) drug therapy
CPT/HCPCS: 36415; 80053; 85025; 85652; 86140

== ENCOUNTER 2023-06-23 12:26 | Outpatient (AMB) | payer OTHER, SELFPAY ==
--- NOTE | 2023-06-23 12:29 | A.OFFVIS_ITS ---
Vital Signs 06/23/23 12:30 Height 5 ft Weight 140 lb 14.006 oz BMI 27.5 BP 126/68 Blood Pressure Location Rt brachial Position Sitting Pulse 59 Pulse Source Pulse Oximeter Pulse Oximetry (%) 97 Oxygen Delivery Method Room Air Intake Visit Reasons: RA/MTX Intake Note: Patient last seen on 03/23/22, presents to office today for RA follow up and MTX use. Night Clerk Auditor Required: No Accompanied by: Self / Same As Patient Allergies sulfasalazine Allergy (Intermediate, Verified 06/23/23 12:35) Hives morphine [Morphine] Allergy (Mild, Verified 06/23/23 12:35) HYPOTENSION levofloxacin Allergy (Verified 06/23/23 12:35) Unknown hydrocodone [From Vicodin] Adverse Reaction (Mild, Verified 06/23/23 12:35) NAUSEA & VOMITING indomethacin [From Indocin] Adverse Reaction (Mild, Verified 06/23/23 12:35) MIGRAINE HEADACHE Penicillins Adverse Reaction (Mild, Verified 06/23/23 12:35) TACHYACRDIA prednisolone Adverse Reaction (Verified 06/23/23 12:35) Hives HPI Comments Details: Ms. Mims, 72 yoF returns today for evaluation of her rheumatoid arthritis. She has been off MTX for about 1 month due to COVID-infection which is now resolved. However, she in general is feeling okay and had no flares. She does continue with discomfort on the medial and lateral aspect of the right ankle. The feet seem to be worse with weight-bearing activity. She did have a fracture of the left ankle years ago and has some hardware in place. That ankle does not bother her presently. She remains on 7.5 mg weekly methotrexate and folic acid 1 mg daily. Sometimes she supplements this, when she has pain, with 600 mg of ibuprofen. History: At one point in the past she was taking the methotrexate relatively infrequently because of abdominal discomfort attributed diverticulitis. She eventually did have a colonoscopy and had no further problems. She did have some precancerous lesions removed from the colon. [facility] Medical History Diverticulitis No known health problems Surgical History (Reviewed 06/23/23 @ 12:37 by Sydni Byrnes [facility] History of colon resection Social History (Reviewed 06/23/23 @ 12:37 by CANDACE Valdez Household Members: Spouse Housing: House Are you a primary long term acute care registered nurse to a significant other at home: No Do you presently have visiting nurse or other home services: No 75 years or older and lives alone: No Alcohol intake: never Patient Tobacco Use Status: Never used Tobacco e-Cigarette/Vaping Use: Never Used service: No Current occupational status: retired Physical Exam Vital Signs: Last Vital Signs Pulse 59 06/23/23 12:30 BP 126/68 06/23/23 12:30 Pulse Ox 97 06/23/23 12:30 Oxygen Delivery Method Room Air 06/23/23 12:30 BMI result Body Mass Index 27.5 Assessment & Plan Assessment & Plan (1) Ankle pain, right: Code(s): M25.571 - Pain in right ankle and joints of right foot Category: Medical Qualifiers: Chronicity: chronic Qualified Code(s): M25.571 - Pain in right ankle and joints of right foot; G89.29 - Other chronic pain (2) [facility] use of drug: Code(s): Z79.899 - Other bed bug exterminator (current) drug therapy Category: Medical (3) Seropositive erosive rheumatoid arthritis: Comment: Onset 2021. RF pos CCP neg ulfasalazine started skin rash so it was stopped no additional treatment at that point Code(s): M05.80 - Other rheumatoid arthritis with rheumatoid factor of unspecified site Category: Medical (4) Osteoarthritis of knees, bilateral: Code(s): M17.0 - Bilateral primary osteoarthritis of knee Category: Medical Qualifiers: Osteoarthritis type: primary Qualified Code(s): M17.0 - Bilateral primary osteoarthritis of knee Plan #SeroPos RA: Ms. Mims 72 yoF here for follow-up of RA and the synovitis from the RA seems controlled with current treatment. It is good to see that she had no RA flare despite not taking MTX for 1 month. She will stay with the current dose of methotrexate 7.5mg QW and Folic Acid 1 mg QD since she is doing Multi with Folic Acid daily. We will check lab work i week before return visit in about 4 months. #OA of multiple Joints: There is some tenderness in the hands consistent with osteoarthritis in a few of the other joints. The ankle pain on the right is likely related to the pes planus. I will obtain Xrays to assess extent of OA to knees which she finds painful. She did see Podiatry. #Alf Use: Monitoring labs for CBC and CMP 1 week before next visit. F/u 4 months I spent 20 minutes reviewing chart, evaluating patient and documenting Orders: Orders XR knee RT 3V 2 Months M05.80 - Other rheumatoid arthritis with rheumatoid factor of unspecified site, M17.0 - Bilateral primary osteoarthritis of knee XR knee LT 3V 2 Months M05.80 - Other rheumatoid arthritis with rheumatoid factor of unspecified site, M17.0 - Bilateral primary osteoarthritis of knee Coding Level of Care Code Est Pt Level 3 (57750) Complex EM visit Add On G2211 Diagnoses Chronic pain of right ankle M25.571; G89.29 Chronicity: chronic long term acute care registered nurse use of drug Z79.899 Seropositive erosive rheumatoid arthritis M05.80 Primary osteoarthritis of both knees M17.0 Osteoarthritis type: primary
[2023-06-23 12:30] VITALS: BP 126/68; PULSE 59; O2SAT 97; BMI 27.5
== END 2023-06-23 13:38 | disposition home or self-care (01) ==
PROVIDERS: PCP Nurse Practitioner Family; Visit Provider Nurse Practitioner Family
DX: M25.571 Pain in right ankle and joints of right foot (principal); G89.29 Other chronic pain; Z79.899 Other long term (current) drug therapy; M05.80 Other rheumatoid arthritis with rheumatoid factor of unspecified site; M17.0 Bilateral primary osteoarthritis of knee
CPT/HCPCS: 99213; G2211

== ENCOUNTER → 2023-06-23 12:26 | Outpatient (BNVA) | payer OTHER, SELFPAY | PROVIDERS: PCP Nurse Practitioner Family; Visit Provider Nurse Practitioner Family ==

== ENCOUNTER 2023-07-13 13:59 | Outpatient (REF) | payer OTHER, SELFPAY ==
--- NOTE | ~2023-07-13 | XR_ITS ---
EXAMINATION: XR KNEE, RIGHT CLINICAL INFORMATION: Rheumatoid arthritis. COMPARISON: Radiographs dated 09/22/2021. TECHNIQUE: AP, lateral, tunnel, and sunrise views of the right knee. FINDINGS: Bony alignment and mineralization are normal. The lateral and patellofemoral joint space compartments are well-maintained. There is very mild narrowing and peripheral osteophyte formation of the medial joint space compartment. An enthesophyte is seen at the upper pole of the patella, towards the quadriceps tendon insertion. No fracture or dislocation is seen. There is a very small joint effusion. No foreign body is seen. XR/XR knee RT 4V IMPRESSION: 1. No right knee fracture or dislocation is seen. There is a very small joint effusion. 2. There is very mild osteoarthritic change of the medial joint space compartment of the right knee. EXAMINATION: XR KNEE, LEFT CLINICAL INFORMATION: Rheumatoid arthritis. COMPARISON: Radiographs dated 09/22/2021. TECHNIQUE: AP, lateral, tunnel, and sunrise views of the left knee. FINDINGS: Bony alignment and mineralization are normal. The lateral, medial and patellofemoral joint space compartments are well-maintained. There is mild peripheral osteophyte formation of the medial joint space compartment. No fracture, dislocation or left knee joint joint effusion is seen. There is no foreign body. IMPRESSION: 1. No left knee fracture, dislocation or significant joint effusion is seen. 2. There is slight osteoarthritic change of the medial joint space compartment of the left knee.
--- NOTE | ~2023-07-13 | XR_ITS ---
EXAMINATION: XR KNEE, RIGHT CLINICAL INFORMATION: Rheumatoid arthritis. COMPARISON: Radiographs dated 09/22/2021. TECHNIQUE: AP, lateral, tunnel, and sunrise views of the right knee. FINDINGS: Bony alignment and mineralization are normal. The lateral and patellofemoral joint space compartments are well-maintained. There is very mild narrowing and peripheral osteophyte formation of the medial joint space compartment. An enthesophyte is seen at the upper pole of the patella, towards the quadriceps tendon insertion. No fracture or dislocation is seen. There is a very small joint effusion. No foreign body is seen. XR/XR knee LT 4V IMPRESSION: 1. No right knee fracture or dislocation is seen. There is a very small joint effusion. 2. There is very mild osteoarthritic change of the medial joint space compartment of the right knee. EXAMINATION: XR KNEE, LEFT CLINICAL INFORMATION: Rheumatoid arthritis. COMPARISON: Radiographs dated 09/22/2021. TECHNIQUE: AP, lateral, tunnel, and sunrise views of the left knee. FINDINGS: Bony alignment and mineralization are normal. The lateral, medial and patellofemoral joint space compartments are well-maintained. There is mild peripheral osteophyte formation of the medial joint space compartment. No fracture, dislocation or left knee joint joint effusion is seen. There is no foreign body. IMPRESSION: 1. No left knee fracture, dislocation or significant joint effusion is seen. 2. There is slight osteoarthritic change of the medial joint space compartment of the left knee.
[2023-07-13 16:00] LABS: MANUAL DIFF FLAG NO
[2023-07-13 16:08] LABS: Basophils Absolute Auto 0.1 X10*3/uL (0.0-0.2); Basophils Percent Auto 0.8 % (0-2); Eosinophils Absolute Auto 0.1 X10*3/uL (0.0-0.4); Eosinophils Percent Auto 1.2 % (0-4); Hematocrit 37.5 % (37.0-47.0); Hemoglobin 12.7 g/dl (12.0-16.0); Imm Gran Abs Auto 0.01 X10*3/uL (0.00-0.03); Imm Gran Pct Auto 0.2 % (0.0-0.4); Lymphocytes Absolute Auto 2.9 X10*3/uL (1.2-4.9); Lymphocytes Percent Auto 44.4 % (20-40); Mean Corpuscular HGB Conc 33.9 g/dl (31.0-35.0); Mean Corpuscular Hemoglobin 31.3 pg (27.0-33.0); Mean Corpuscular Volume 92.4 fL (80.0-98.0); Monocytes Absolute Auto 0.6 X10*3/uL (0.1-1.2); Monocytes Percent Auto 9.2 % (2-11); Neutrophils Absolute Auto 2.9 x10*3/uL (2.0-8.3); Neutrophils Percent Auto 44.2 % (45-73); Platelet Count 248 X10*3/uL (160-400); Red Blood Count 4.06 X10*6/uL (4.20-5.50); Red Cell Distribution Width 15.6 % (11.0-16.0); White Blood Count 6.5 X10*3/uL (4.8-10.8)
[2023-07-13 16:22] LABS: Alanine Aminotransferase 19 U/L (0-31); Alkaline Phosphatase 52 U/L (39-117); Anion Gap 11 (12-20); Aspartate Amino Transferase 17 U/L (5-31); Bilirubin Total 0.4 mg/dL (0.0-1.0); Blood Urea Nitrogen 15 mg/dL (9-16); C Reactive Protein < 0.10 mg/dL (< or = 0.50); Calcium 9.5 mg/dL (8.4-10.2); Carbon Dioxide 26 mmol/L (22-29); Chloride 110 mmol/L (96-108); Estimated Glomerular Filt Rate > 60; Glucose Random 103 mg/dL (60-115); Potassium 3.8 mmol/L (3.3-5.1); Sodium 143 mmol/L (135-145); Total Protein 6.6 g/dL (6.5-8.0)
[2023-07-13 16:53] LABS: Erythrocyte Sedimentation Rate 5 MM/HR (0-20)
== END 2023-07-13 14:00 | disposition home or self-care (01) ==
LOC: HO.HMGCX 13:59
PROVIDERS: PCP Nurse Practitioner; Visit Provider Nurse Practitioner Family
DX: M05.80 Other rheumatoid arthritis with rheumatoid factor of unspecified site (principal); Z79.899 Other long term (current) drug therapy
CPT/HCPCS: 36415; 73564; 80053; 85025; 85652; 86140

== ENCOUNTER 2023-07-29 13:47 | Emergency (ER) | payer OTHER, SELFPAY ==
--- NOTE | ~2023-07-29 | US_ITS ---
EXAMINATION: US VENOUS ULTRASOUND WITH DOPPLER LOWER EXTREMITY, BILATERAL CLINICAL INFORMATION: Bilateral lower extremity swelling COMPARISON: None available. TECHNIQUE: Ultrasound of the deep veins is performed from the hip to the calf with compression sonography and color and pulse Doppler assessment. Spectral analysis with color-flow imaging is performed. FINDINGS: RIGHT: There is normal venous compression and respiratory variation. The visualized common femoral vein, superficial femoral vein, profunda femoral vein, popliteal vein, and the posterior tibial and peroneal veins show no evidence of deep venous thrombosis. LEFT: There is normal venous compression and respiratory variation. The visualized common femoral vein, superficial femoral vein, profunda femoral vein, popliteal vein, and the posterior tibial vein show no evidence of deep venous thrombosis. The left peroneal vein is not seen. Benign-appearing lymph nodes are seen in both groins US/US venous duplex LE BI IMPRESSION: No DVT demonstrated in the bilateral lower extremities.
[2023-07-29 14:13] VITALS: BP 127/72; PULSE 82; RESP 17; TEMP 36.8; O2SAT 96; BMI 27.7
--- NOTE | 2023-07-29 14:14 | ED.GENADULT ---
HPI - General Adult General Chief complaint: Extremity Problem Stated complaint: both legs pain and swelling quest clot Time Seen by Provider: 07/29/23 20:23 Source: patient Mode of arrival: ambulatory History of Present Illness ED Provider: Quincy LEDEZMA narrative: 72-year-old female with history of OA, RA, known venous insufficiency he presents with bilateral lower extremity edema x1 month. Denies shortness of breath or chest pain. Denies unintentional weight gain, patient has actually lost weight. Related Data Previous Rx's ?Medication ?Instructions ?Recorded folic acid 1 mg tablet 1 mg PO DAILY #90 tabs 02/02/23 methotrexate sodium 2.5 mg tablet 7.5 mg (3 x 2.5 mg) PO QWEEK #12 03/23/23 tabs furosemide 20 mg tablet (Lasix) 20 mg PO DAILY #7 tabs 07/29/23 Allergies Allergy/AdvReac Type Severity Reaction Status Date / Time sulfasalazine Allergy Intermediate Hives Verified 07/29/23 14:19 morphine [Morphine] Allergy Mild HYPOTENSION Verified 07/29/23 14:19 levofloxacin Allergy Unknown Verified 07/29/23 14:19 hydrocodone [From Vicodin] AdvReac Mild NAUSEA & Verified 07/29/23 14:19 VOMITING indomethacin [From Indocin] AdvReac Mild MIGRAINE Verified 07/29/23 14:19 HEADACHE Penicillins AdvReac Mild TACHYACRDIA Verified 07/29/23 14:19 prednisolone AdvReac Hives Verified 07/29/23 14:19 Review of Systems Review of Systems: Yes all other systems are reviewed and are negative Constitutional: Constitutional: Denies fatigue and Denies fever(s) Cardiovascular: Cardiovascular: Denies chest pain, Reports leg edema and Denies dyspnea Respiratory: Respiratory: Denies dyspnea Integumentary/Breasts: Skin/Breast: Denies rash and Reports skin swelling Endocrine: Endocrine: Denies fatigue PMFSH Past Medical History Attestation statement: The following information was validated with the patient. Medical History Diverticulitis No known health problems Surgical History History of colon resection Social History Social History Household Members: Spouse Housing: House Are you a primary ambulatory care nurse to a significant other at home: No Do you presently have visiting nurse or other home services: No Alcohol intake: never Patient Tobacco Use Status: Never used Tobacco e-Cigarette/Vaping Use: Never Used Advance Directives: No Advance Directives Information Provided: No Do you have a plan to hurt others: No Plan service: No Current occupational status: retired Physical Exam ED Vital Signs: Vital Signs - 24 hr 07/29/23 14:13 07/29/23 20:00 Temperature 98.2 F 98.4 F Pulse Rate 82 73 Respiratory Rate 17 Blood Pressure 127/72 123/75 Pulse Oximetry 96 98 Oxygen Delivery Method Room Air Room Air BMI result Body Mass Index 27.7 Const Other: Alert well in appearance General: cooperative Resp Other: Nonlabored respirations Cardio Other: Both lower extremities are warm and well perfused, pitting edema noted up to the point of her shins Skin Other: No rash Neuro Other: Alert and oriented x3 Psych Other: , cooperative Course Course Course Narrative: This is an RME: Additional HPI, ROS, PE not included below will be deferred to primary provider. RME assessment and note performed by: Maranda Arevalo PA-C This is a 89-wmdn-nig-female, with a hx of diverticulitis, venous insufficiency, and rheumatoid arthritis on methotrexate, who presents to the ER with complaints of BL LE swelling x several weeks. Was told that she had an old blood clot in her left ankle several weeks ago and was told not to worry. Reporting increased swelling and pain in her right calf. She has TTP to right calf. No CP or SOB. Plan: Labs, US Medical Decision Making Medical Decision Making MDM Narrative: 72-year-old female with history of OA, RA, known venous insufficiency he presents with bilateral lower extremity edema x1 month. Denies shortness of breath or chest pain. Denies unintentional weight gain, patient has actually lost weight. Problem: Arthritis, known venous insufficiency History: Per patient I have considered the following differential diagnoses: Dependent edema, new heart failure, DVT, cellulitis Plan: Patient has dependent edema, she has known venous insufficiency. DVT studies and labs already obtained from triage, there is no DVT. Her labs are completely normal. We will be sending with home care instructions, a short script for low-dose Lasix, and advised that she needs to follow up with primary care for further discussion in regard to continuing the Lasix. She has no infectious signs symptoms, no overlying redness of the lower extremities to suggest cellulitis, also no leukocytosis. I do not believe her symptoms are secondary to new onset heart failure, she has not had unintentional weight gain, she denies shortness of breath or chest pain, she has an active individual. I have independently reviewed the following tests: Labs: No leukocytosis, no anemic, no electrolyte abnormality, creatinine 0.65 Doppler studies bilateral lower extremity:[address] [address] Ultrasound Report Signed Patient: Felicita Noble MR#: [id number] : 1950 Acct:[id number] Age/Sex: 72 / F ADM Date: 07/29/23 Loc: .ED Attending Dr: Ordering Physician: Maranda Arevalo Date of Service: 07/29/23 Procedure(s): US venous duplex LE BI Accession Number(s): [id number] cc: Maranda Arevalo; Collins Pizano OBSTETRICS TECH~ EXAMINATION: US VENOUS ULTRASOUND WITH DOPPLER LOWER EXTREMITY, BILATERAL CLINICAL INFORMATION: Bilateral lower extremity swelling COMPARISON: None available. TECHNIQUE: Ultrasound of the deep veins is performed from the hip to the calf with compression sonography and color and pulse Doppler assessment. Spectral analysis with color-flow imaging is performed. FINDINGS: RIGHT: There is normal venous compression and respiratory variation. The visualized common femoral vein, superficial femoral vein, profunda femoral vein, popliteal vein, and the posterior tibial and peroneal veins show no evidence of deep venous thrombosis. LEFT: There is normal venous compression and respiratory variation. The visualized common femoral vein, superficial femoral vein, profunda femoral vein, popliteal vein, and the posterior tibial vein show no evidence of deep venous thrombosis. The left peroneal vein is not seen. Benign-appearing lymph nodes are seen in both groins US/US venous duplex LE BI IMPRESSION: No DVT demonstrated in the bilateral lower extremities. Differential Diagnosis Differential Diagnoses: The differential diagnosis associated with the presentation includes Dependent edema, new heart failure, DVT, cellulitis Lab Data 07/29/23 15:09 07/29/23 15:09 Labs: Lab Results 07/29/23 Range/Units 15:09 WBC 7.1 (4.8-10.8) X10*3/uL RBC 4.08 L (4.20-5.50) X10*6/uL Hgb 13.0 (12.0-16.0) g/dl Hct 38.0 (37.0-47.0) % MCV 93.1 (80.0-98.0) fL MCH 31.9 (27.0-33.0) pg MCHC 34.2 (31.0-35.0) g/dl RDW 15.8 (11.0-16.0) % Plt Count 261 (160-400) X10*3/uL MPV 9.6 (9.4-12.3) fL Immature Gran % (Auto) 0.1 (0.0-0.4) % Neut % (Auto) 42.8 L (45-73) % Lymph % (Auto) 45.2 H (20-40) % Kern % (Auto) 9.9 (2-11) % Eos % (Auto) 1.3 (0-4) % Baso % (Auto) 0.7 (0-2) % Lymph # (Auto) 3.2 (1.2-4.9) X10*3/uL Kern # (Auto) 0.7 (0.1-1.2) X10*3/uL Eos # (Auto) 0.1 (0.0-0.4) X10*3/uL Baso # (Auto) 0.1 (0.0-0.2) X10*3/uL Abs Immat Gran (auto) 0.01 (0.00-0.03) X10*3/uL Absolute Neuts (auto) 3.0 (2.0-8.3) x10*3/uL Absolute Nucleated RBC 0.000 (0.0-0.012) X10*3/uL Nucleated RBC % (auto) 0.0 (0.0-0.2) /100WBC PT 12.4 (11.1-13.3) SEC INR 1.0 (0.9-1.1) APTT 31.3 (26.0-36.8) SEC Sodium 143 (135-145) mmol/L Potassium 3.9 (3.3-5.1) mmol/L Chloride 109 H (96-108) mmol/L Carbon Dioxide 29 (22-29) mmol/L Anion Gap 9 L (12-20) BUN 15 (9-16) mg/dL Creatinine 0.76 (0.5-1.4) mg/dL Estim Creat Clear Calc 57.6 Estimated GFR > 60 Random Glucose 88 (60-115) mg/dL Calcium 9.7 (8.4-10.2) mg/dL Total Bilirubin 0.4 (0.0-1.0) mg/dL Direct Bilirubin 0.2 (0.0-0.5) mg/dL AST 18 (5-31) U/L ALT 19 (0-31) U/L Alkaline Phosphatase 56 (39-117) U/L B-Natriuretic Peptide 76 (<100) pg/mL Total Protein 6.8 (6.5-8.0) g/dL Albumin 4.1 (3.5-5.0) g/dL Discharge Plan Discharge Clinical Impression: Venous insufficiency of both lower extremities Patient Disposition: Home, Self-Care Instructions: Peripheral Vascular Disease (ED), Venous Insufficiency (DC) Additional Instructions: The ultrasound studies of your lower extremities were negative for clot. Your symptoms are consistent with your known venous insufficiency. See home care instructions. You should be using compression stockings every day while you are up and active. When you are resting at night, elevate your legs. You are being sent with a short prescription for Lasix, take it as directed. This is a diuretic, it will help pull excess fluid from the legs. You should have discussion with your primary care provider about continuing this medication. I will call tomorrow to make follow-up appointment. Prescriptions: New furosemide [Lasix] 20 mg tablet 20 mg PO DAILY Qty: 7 0RF No Action folic acid 1 mg tablet 1 mg PO DAILY Qty: 90 2RF methotrexate sodium 2.5 mg tablet 7.5 mg PO QWEEK Qty: 12 2RF Print Language: German
[2023-07-29 15:16] LABS: MANUAL DIFF FLAG NO
[2023-07-29 15:19] LABS: Basophils Absolute Auto 0.1 X10*3/uL (0.0-0.2); Basophils Percent Auto 0.7 % (0-2); Eosinophils Absolute Auto 0.1 X10*3/uL (0.0-0.4); Eosinophils Percent Auto 1.3 % (0-4); Imm Gran Abs Auto 0.01 X10*3/uL (0.00-0.03); Imm Gran Pct Auto 0.1 % (0.0-0.4); Lymphocytes Absolute Auto 3.2 X10*3/uL (1.2-4.9); Lymphocytes Percent Auto 45.2 % (20-40); Mean Corpuscular HGB Conc 34.2 g/dl (31.0-35.0); Mean Corpuscular Hemoglobin 31.9 pg (27.0-33.0); Mean Corpuscular Volume 93.1 fL (80.0-98.0); Mean Platelet Volume 9.6 fL (9.4-12.3); Monocytes Absolute Auto 0.7 X10*3/uL (0.1-1.2); Monocytes Percent Auto 9.9 % (2-11); Neutrophils Percent Auto 42.8 % (45-73); Platelet Count 261 X10*3/uL (160-400); Red Blood Count 4.08 X10*6/uL (4.20-5.50); Red Cell Distribution Width 15.8 % (11.0-16.0); White Blood Count 7.1 X10*3/uL (4.8-10.8)
[2023-07-29 15:24] LABS: Prothrombin Time 12.4 SEC (11.1-13.3)
[2023-07-29 15:27] LABS: Partial Thromboplastin Time 31.3 SEC (26.0-36.8)
[2023-07-29 15:36] LABS: Alanine Aminotransferase 19 U/L (0-31); Albumin Level 4.1 g/dL (3.5-5.0); Alkaline Phosphatase 56 U/L (39-117); Anion Gap 9 (12-20); Aspartate Amino Transferase 18 U/L (5-31); Bilirubin Direct 0.2 mg/dL (0.0-0.5); Bilirubin Total 0.4 mg/dL (0.0-1.0); Blood Urea Nitrogen 15 mg/dL (9-16); Calcium 9.7 mg/dL (8.4-10.2); Carbon Dioxide 29 mmol/L (22-29); Chloride 109 mmol/L (96-108); Creatinine Clr Calc Pharmacy 57.6; Estimated Glomerular Filt Rate > 60; Glucose Random 88 mg/dL (60-115); Potassium 3.9 mmol/L (3.3-5.1); Sodium 143 mmol/L (135-145); Total Protein 6.8 g/dL (6.5-8.0)
[2023-07-29 15:42] LABS: B Type Natriuretic Peptide 76 pg/mL (<100)
[2023-07-29 20:00] VITALS: BP 123/75; PULSE 73; TEMP 36.9; O2SAT 98
[2023-07-29 21:16] VITALS: BP 120/74; PULSE 80; RESP 18; TEMP 36.9; O2SAT 98
== END 2023-07-29 21:17 | disposition home or self-care (01) ==
PROVIDERS: Physician Assistant Medical; Emergency Provider Internal Medicine; PCP Nurse Practitioner
DX: I87.2 Venous insufficiency (chronic) (peripheral) (principal); M06.9 Rheumatoid arthritis, unspecified; Z79.631 Long term (current) use of antimetabolite agent
CPT/HCPCS: 36415; 80048; 80076; 83880; 85025; 85610; 85730; 93970; 99283; 99284

== ENCOUNTER 2023-11-30 11:21 | Outpatient (AMB) | payer OTHER, SELFPAY ==
[2023-11-30 11:27] VITALS: BP 122/72; PULSE 85; O2SAT 98; BMI 27.9
--- NOTE | 2023-11-30 11:27 | MHC.OFFVIS ---
Vital Signs 11/30/23 11:27 Height 5 ft Weight 143 lb BMI 27.9 BP 122/72 Blood Pressure Location Lt brachial Position Sitting Pulse 85 Pulse Source Pulse Oximeter Pulse Oximetry (%) 98 Oxygen Delivery Method Room Air Intake Visit Reasons: RA Intake Note: Patient presents today for follow up of RA, she was last seen in the office on 06/23/23 by Jessica Valdez. Allergies sulfasalazine Allergy (Intermediate, Verified 11/30/23 11:30) Hives morphine [Morphine] Allergy (Mild, Verified 11/30/23 11:30) HYPOTENSION levofloxacin Allergy (Verified 11/30/23 11:30) Unknown hydrocodone [From Vicodin] Adverse Reaction (Mild, Verified 11/30/23 11:30) NAUSEA & VOMITING indomethacin [From Indocin] Adverse Reaction (Mild, Verified 11/30/23 11:30) MIGRAINE HEADACHE Penicillins Adverse Reaction (Mild, Verified 11/30/23 11:30) TACHYACRDIA prednisolone Adverse Reaction (Verified 11/30/23 11:30) Hives Medication List - Last Reconciled 11/30/23 by Lara Rey MD folic acid 1 mg PO DAILY furosemide (Lasix) 20 mg PO DAILY methotrexate sodium 7.5 mg (3 x 2.5 mg) PO QWEEK HPI Comments Details: Patient is a 73-year-old female with history of a brain tumor status post resection, polyarticular osteoarthritis involving hands and knees, seropositive nonerosive rheumatoid arthritis (RF positive, 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 Interval History: Last seen 06/23/2023 with Jessica Valdez. At that time patient was stable on 7.5 mg methotrexate weekly and 1 mg folic acid daily (patient actually taking 0.5 mg daily) Today she reports she is doing well. No morning stiffness. No swelling to her hands, wrists, feet or knees. Tolerating methotrexate however is reporting intermittent oral ulcers. Denies hair thinning. Currently following up with orthopedics for knee OA. Received bilateral intra-articular steroids and is scheduled for intra-articular synovial gel Also complaining of word-finding difficulties and sometimes mixing up intended words for example we will want to say good N/C would instead. Does have a history of brain surgery. Rheumatologic History: Onset 2021. RF pos CCP neg 10/2021 sulfasalazine started skin rash so it was stopped Methotrexate started 02/2022 Current Rheumatology Medication(s): Methotrexate 7.5 mg weekly Folic acid 1 mg daily (currently taking 0.5 mg daily) [facility] Medical History Diverticulitis No known health problems Surgical History History of colon resection Social History Household Members: Spouse Housing: House Are you a primary behavioral health care coordinator to a significant other at home: No Do you presently have visiting nurse or other home services: No 75 years or older and lives alone: No Alcohol intake: never Patient Tobacco Use Status: Never used Tobacco e-Cigarette/Vaping Use: Never Used service: No Current occupational status: retired Review of Systems Const Details: Review of Systems Constitutional: Denies fever, chills, weight loss ENT: Denies vision changes, eye pain or eye redness, dental caries, dry mouth GI: Denies nausea, vomiting, diarrhea, abdominal pain, change in BM Pulm: Denies SOB, CALVO, hemoptysis, wheezing Cards: Denies chest pain, palpitations Skin: Denies Raynaud's, rash, nail changes, photosensitivity, CPR AMBULANCE DRIVER: Denies headaches, weakness, paresthesias, recurrent falls MSK: as per HPI All other systems reviewed and are unremarkable except noted above Physical Exam Vital Signs: Last Vital Signs Pulse 85 11/30/23 11:27 BP 122/72 11/30/23 11:27 Pulse Ox 98 11/30/23 11:27 Oxygen Delivery Method Room Air 11/30/23 11:27 BMI result Body Mass Index 27.9 Const Other: Physical Examination Patient well appearing and in no apparent painful distress Able to rise from chair without support. ?Gait normal. Constitutional Mucous membranes pink and moist patient alert and cooperative HEENT Conjunctiva and sclera clear. ?Pupils equal round and reactive to light. ?No lymphadenopathy. ?Normal dentition. Respiratory System Normal respiratory effort and able to speak in complete sentences. ?Clear to auscultation bilaterally. ?No crackles, rales, rhonchi, wheezes heard. Cardiac System Regular rate and rhythm. ?S1 and S2 heard no murmurs. ?Radial pulses intact bilaterally MSK No deformity, swelling, abnormalities noted to bilateral hands. ?No evidence of synovitis. ?Able to move all joints with full range of motion, without limitation. Heberden's nodes noted. Right knee with trace effusion no warmth. Left knee without effusion. Full range of motion to bilateral knees Skin Has some nodules noted to the finger pads. Results Reviewed Results Reviewed: Laboratory Tests 06/15/23 07/13/23 07/29/23 13:20 14:04 15:09 WBC 6.5 7.1 RBC 4.06 L 4.08 L Hgb 12.7 13.0 Plt Count 248 261 ESR 6 5 Sodium 141 143 143 Potassium 3.7 3.8 3.9 Chloride 106 110 H 109 H Carbon Dioxide 24 26 29 BUN 13 15 15 Creatinine 0.78 0.69 0.76 AST 16 17 18 ALT 17 19 19 C-Reactive Protein 0.22 < 0.10 Assessment & Plan Assessment & Plan (1) Seropositive erosive rheumatoid arthritis: Comment: Onset 2021. RF pos CCP neg ulfasalazine started skin rash so it was stopped no additional treatment at that point Code(s): M05.80 - Other rheumatoid arthritis with rheumatoid factor of unspecified site Category: Medical Plan: #Seropositive Non Erosive RA Patient with seropositive nonerosive rheumatoid arthritis currently in remission on methotrexate 7.5 mg Patient having some oral ulcers recommended to go up to the full 1 mg daily except methotrexate days of folic acid. We will check labs today including flexion and extension neck x-rays. (2) skilled nursing use of drug: Code(s): Z79.899 - Other correctional program specialist (current) drug therapy Category: Medical Plan: #Long-term Current Use of Methotrexate Discussed with patient the benefits and risks of methotrexate for managing their rheumatic condition Benefits include reduced pain, reduced mortality, maintenance of remission and reduction of flares Risks include oral ulcers, photosensitivity, hepatotoxicity, hematologic toxicity, pneumonitis, flu-like symptoms (especially day after administration), nodulosis, lymphomas ? Limit alcohol and avoid Bactrim ? Monitoring: ?CBC, BMP, LFTs, hepatitis serologies as needed Increase folic acid to full 1mg daily, except Mtx days (3) Osteoarthritis of knees, bilateral: Code(s): M17.0 - Bilateral primary osteoarthritis of knee Category: Medical Qualifiers: Osteoarthritis type: primary Qualified Code(s): M17.0 - Bilateral primary osteoarthritis of knee Plan: #Bilateral Knee OA Continue follow-up with Orthopedics. (4) Word finding problem: Code(s): R47.89 - Other speech disturbances Plan: #Word finding difficulty Patient with word-finding/mixing up words. Recommended following up with her neurosurgeon. She did have an MRI done in February which showed some ischemic changes including a TIA of unknown occurrence. No global neurological deficits noted in office Plan I spent 25 minutes reviewing the record and labs, seeing the patient, discussing the treatment plan and documenting in the medical record Orders: Orders Erythrocyte Sedimentation Rate 4 Months M05.80 - Other rheumatoid arthritis with rheumatoid factor of unspecified site Erythrocyte Sedimentation Rate Today M05.80 - Other rheumatoid arthritis with rheumatoid factor of unspecified site Complete Blood Count Auto Diff Today M05.80 - Other rheumatoid arthritis with rheumatoid factor of unspecified site C Reactive Protein Today M05.80 - Other rheumatoid arthritis with rheumatoid factor of unspecified site Comprehensive Met. Panel 4 Months M05.80 - Other rheumatoid arthritis with rheumatoid factor of unspecified site C Reactive Protein 4 Months M05.80 - Other rheumatoid arthritis with rheumatoid factor of unspecified site Complete Blood Count Auto Diff 4 Months M05.80 - Other rheumatoid arthritis with rheumatoid factor of unspecified site XR cervical spine w flex/ext Today M05.80 - Other rheumatoid arthritis with rheumatoid factor of unspecified site Comprehensive Met. Panel Today M05.80 - Other rheumatoid arthritis with rheumatoid factor of unspecified site Medications: Changed From methotrexate sodium 7.5 mg (3 x 2.5 mg) PO QWEEK 12 tabs 1RF M05.80 - Other rheumatoid arthritis with rheumatoid factor of unspecified site To methotrexate sodium 7.5 mg (3 x 2.5 mg) PO QWEEK 90 days 39 tabs 1RF M05.80 - Other rheumatoid arthritis with rheumatoid factor of unspecified site From folic acid 1 mg PO DAILY 90 tabs 2RF M05.80 - Other rheumatoid arthritis with rheumatoid factor of unspecified site To folic acid 1 mg PO DAILY 90 days 90 tabs 1RF M05.80 - Other rheumatoid arthritis with rheumatoid factor of unspecified site Discontinued furosemide (Lasix) Discontinued Reason: Patient Completed Course 20 mg PO DAILY 7 tabs 0RF Coding Level of Care Code Est Pt Level 3 (99611) Complex EM visit Add On G2211 Diagnoses Seropositive erosive rheumatoid arthritis M05.80 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
== END 2023-11-30 12:13 | disposition home or self-care (01) ==
PROVIDERS: PCP Nurse Practitioner; Visit Provider Student in an Organized Health Care Education/Training Program
DX: M05.80 Other rheumatoid arthritis with rheumatoid factor of unspecified site (principal); Z79.899 Other long term (current) drug therapy; M17.0 Bilateral primary osteoarthritis of knee; R47.89 Other speech disturbances
CPT/HCPCS: 99213

== ENCOUNTER → 2023-11-30 11:21 | Outpatient (BNVA) | payer OTHER, SELFPAY | PROVIDERS: PCP Nurse Practitioner; Visit Provider Student in an Organized Health Care Education/Training Program ==

== ENCOUNTER 2023-11-30 13:24 | Outpatient (REF) | payer OTHER, SELFPAY ==
[2023-11-30 16:23] LABS: MANUAL DIFF FLAG NO
[2023-11-30 16:34] LABS: Basophils Absolute Auto 0.1 X10*3/uL (0.0-0.2); Basophils Percent Auto 0.8 % (0-2); Eosinophils Percent Auto 0.5 % (0-4); Hematocrit 39.7 % (37.0-47.0); Hemoglobin 13.4 g/dl (12.0-16.0); Imm Gran Abs Auto 0.02 X10*3/uL (0.00-0.03); Imm Gran Pct Auto 0.3 % (0.0-0.4); Lymphocytes Absolute Auto 2.5 X10*3/uL (1.2-4.9); Lymphocytes Percent Auto 32.6 % (20-40); Mean Corpuscular HGB Conc 33.8 g/dl (31.0-35.0); Mean Corpuscular Volume 94.7 fL (80.0-98.0); Mean Platelet Volume 9.6 fL (9.4-12.3); Monocytes Absolute Auto 0.6 X10*3/uL (0.1-1.2); Monocytes Percent Auto 8.2 % (2-11); Neutrophils Absolute Auto 4.5 x10*3/uL (2.0-8.3); Neutrophils Percent Auto 57.6 % (45-73); Platelet Count 271 X10*3/uL (160-400); Red Blood Count 4.19 X10*6/uL (4.20-5.50); Red Cell Distribution Width 15.1 % (11.0-16.0); White Blood Count 7.8 X10*3/uL (4.8-10.8)
[2023-11-30 16:38] LABS: Alanine Aminotransferase 21 U/L (0-31); Albumin Level 4.1 g/dL (3.5-5.0); Alkaline Phosphatase 50 U/L (39-117); Anion Gap 12 (12-20); Aspartate Amino Transferase 19 U/L (5-31); Bilirubin Total 0.5 mg/dL (0.0-1.0); Blood Urea Nitrogen 13 mg/dL (9-16); C Reactive Protein < 0.10 mg/dL (< or = 0.50); Carbon Dioxide 27 mmol/L (22-29); Chloride 108 mmol/L (96-108); Estimated Glomerular Filt Rate > 60; Glucose Random 94 mg/dL (60-115); Potassium 4.1 mmol/L (3.3-5.1); Sodium 143 mmol/L (135-145); Total Protein 6.6 g/dL (6.5-8.0)
[2023-11-30 17:28] LABS: Erythrocyte Sedimentation Rate 5 MM/HR (0-20)
== END 2023-11-30 13:25 | disposition home or self-care (01) ==
LOC: HO.HMGCLDS 13:24
PROVIDERS: PCP Nurse Practitioner; Visit Provider Student in an Organized Health Care Education/Training Program
DX: M05.80 Other rheumatoid arthritis with rheumatoid factor of unspecified site (principal)
CPT/HCPCS: 36415; 80053; 85025; 85652; 86140

== ENCOUNTER 2024-03-24 12:41 | Outpatient (REF) | payer OTHER, SELFPAY ==
--- OUTSIDE RECORDS SUMMARY | 2024-03-24 13:23 | XMS_ITS | Continuity of Care Document ---
Author Organization [facility] Address [address] [place] [address] Phone Care Team Providers Care Case Packer Name Role Phone Fito Short Unavailable Unavailable [...] Providers Copied on Encounter [facility], [address], [place], [id number], [place] tel:[phone] CV[place] - [place] No Information 5 Sherie Payton. [address] [place] [address], [address], [place], [id number], [place]. tel:[phone] Referring Provider: Collins Gipson, [address], [address], [place], [address]. tel:[phone] Office/Outpt E&M Established 15 Mins- CT & [place] [facility], [address] [place] [address] [address], [place], [id number], [place] tel:[phone] CVR - [facility] Localized edemaVenous insufficiency (chronic) (peripheral) Nov- 4 Jorge SCHRADER RVT, MARJORIE Irvin. [address] [place] [address] 302, [place], [id number], [place]. tel:[phone] Referring Provider: Collins Gipson, [address], [address], [place], [address]. tel:[phone] [facility], [address] [place] [address] Dr [address], [place], [id number], [place] tel:[phone] CVR - [facility] Varicose veins of right lower extremity with pain Nov- 4 Jorge SCHRADER RVT, MARJORIE Irvin. [address] [place] [address] 302, [place], [id number], [place]. tel:[phone] Referring Provider: Collins Gipson, [address], [address], [place], [address]. tel:[phone] [facility], [address] [place] [address] Dr [address] 1000[place], [id number], [place] tel:[phone] [place] Encounter for follow-up examination after completed treatment for conditions other than malignant nePain in right leg Oct 4 Jorge SCHRADER RVT, MARJORIE Irvin. [address] [place] [address], [place], [id number], [place]. tel:[phone] Referring Provider: Collins Gipson, [address], [address], [place], [address]. tel:[phone] [place] [facility], [address] [place] [address] Dr [address] 1000[place], [id number], [place] tel:[phone] [place] - [place] Varicose veins of right lower extremity with other complications 4 Jorge SCHRADER RVT, MARJORIE Irvin. [address] [place] [address], [place], [id number], [place]. tel:[phone] Referring Provider: Collins Gipson, [address], [address], [place], [address]. tel:[phone] [place] [facility], [address] [place] [address] Dr [address], [place], [id number], [place] tel:[phone] [place] - [place] No Information 4 Jorge SCHRADER, JOHN, MARJORIE Irvin. [address] [place] [address], [place], [id number], [place]. tel:[phone] Offic/outpt E&m Estab 5 Min Trial- Telemedicine CT & [place] [facility], [address] [place] [address] Dr [address] 1000[place], [id number], [place] tel:[phone] [place] - [place] Lymphedema, not elsewhere classifiedVen ous insufficiency (chronic) (peripheral) 4 Sherie Payton. [address] [place] [address] [address], [place], [id number], [place]. tel:[phone] Referring Provider: Collins Gipson, [address], [address], [place], [address]. tel:[phone] Offic Cons New/estab Mod 40 Mi- CT & [place] [facility], [address] [place] [address] [address], [place], [id number], tel:[phone] CV[place] - [place] Varicose veins of right lower extremity with other complications Pain in right lower legPain in left lower legPain in right legLymphedema , not elsewhere classifiedPai n in left legHereditary lymphedemaLoc alized edema 4 Jorge SCHRADER RVT, MARJORIE Irvin. [address] [place] [address], [address], [place], [id number], [place]. tel:[phone] Referring Provider: Collins Gipson, [address], [address], [place], [address]. tel:[phone] [place] [facility], [address] [place] [address] [address], [place], [id number], [place] tel:[phone] CV[place] - [place] Varicose veins of bilateral lower extremities with pain 4 Jorge SCHRADER RVT, MARJORIE Irvin. [address] [place] [address], [address], [place], [id number], [place]. tel:[phone] Referring Provider: Collins Gipson, [address], [address], [place], [address]. tel:[phone] [place] [facility], [address] [place] [address] Dr [address], [place], [id number], [place] tel:[phone] [place] - [place] Pain in right leg June- 4 Jorge SCHRADER RVT, MARJORIE Irvin. [address] [place] [address], [address], [place], [id number], [place]. tel:[phone] Referring Provider: Collins Gipson, [address], [address], [place], [address]. tel:[phone] Family History Family Member Type Diagnosis Age At Onset No Information Payers Payer name Insurance type Covered constitution party ID Authoriza tion(s) No Information Social [...] Information Instructions Date Instruction Additional Infor epifanio Pre and post instruc tions reviewed and provided Related to Lymphedema, not elsewhere classified Patient education booklet given Related to Lymphedema, not elsewhere classified Diet [...]
--- OUTSIDE RECORDS SUMMARY | 2024-03-24 13:23 | XMS_ITS | Clinical Summary ---
Author Organization [facility] Address [address] [place] [address] Phone Care Team Providers Care Acrobatic Dancer Name Role Phone Tim Chambers MD Primary Care Provider [phone] Social History Tobacco Use Types Packs/Day Years Used Date Smoking Tobacco: Never Assessed Sex and Gender Information Value Date Recorded Sex Assigned at Not on file Gender Identity Not on file Sexual Orientation Not on file Plan of Treatment Health Maintenance Due Date Last Done Comments Breast Cancer Screening 1950 DTaP,Tdap,and Td Vaccines (1 - Tdap) 08/11/1971 Zoster Vaccines (1 of 2) 2002 Pneumococcal Vaccine: 65+ Ye ars (1 of 1 - PCV) 2017 Colorectal Cancer Screening: Colonoscopy 03/12/2023 Depression Screening 03/12/2023 Falls Risk Assessment 03/12/2023 Hepatitis C Screening 03/12/2023 Osteoporosis Screening (Bone Density Screening) 03/12/2023 Social Influencers of Health Screening 03/12/2023 COVID-19 Vaccine ( - 2023-2 5 season) 2023 Influenza Vaccine (#1) 2023 RSV Immunization Patients 60 + Years Old (1 - 1-dose 75+ series) 08/11/2027 HIB Vaccines Aged Out No longer eligi ble based on patient's age to complete this topic HPV Vaccines Aged Out No longer eligi ble based on patient's age to complete this topic Hepatitis A Vaccines Aged Out No long er eligible based on patient's age to complete this topic Hepatitis B Vaccines Aged Out No long er eligible based on patient's age to complete this topic IPV Vaccines Aged Out No longer eligi ble based on patient's age to complete this topic MMR Vaccines Aged Out No longer eligi ble based on patient's age to complete this topic Meningococcal ACWY Vaccine Aged Out N o longer eligible based on patient's age to complete this topic RSV Immunization Patients Un flavio 20 months Aged Out No longer eligible b ased on patient's age to complete this topic Varicella Vaccines Aged Out No longer eligible based on patient's age to complete this topic Procedures Procedure Name Priority Date/Time Associated Diagnosis Comments EXTERNAL NEUROLOGY REPORT Routine 01/20/2024 10:21 AM EST from Last 3 Months Results * External Neurology Report (01/20/2024 10:21 AM EST) Historical Provider NEUROLOGY ORDERAB LES from Last 3 Months Care Teams Acrobatic Dancer Relationship Specialty Start Date End Date Tim Chambers MD [address] [place] [address] PCP - General 02/15/10
[2024-03-24 16:31] LABS: MANUAL DIFF FLAG NO
[2024-03-24 16:42] LABS: Basophils Percent Auto 0.6 % (0-2); Eosinophils Absolute Auto 0.1 X10*3/uL (0.0-0.4); Eosinophils Percent Auto 1.6 % (0-4); Hematocrit 39.2 % (37.0-47.0); Hemoglobin 13.1 g/dl (12.0-16.0); Imm Gran Abs Auto 0.01 X10*3/uL (0.00-0.03); Imm Gran Pct Auto 0.2 % (0.0-0.4); Lymphocytes Absolute Auto 2.8 X10*3/uL (1.2-4.9); Mean Corpuscular HGB Conc 33.4 g/dl (31.0-35.0); Mean Corpuscular Hemoglobin 31.4 pg (27.0-33.0); Mean Platelet Volume 9.8 fL (9.4-12.3); Monocytes Absolute Auto 0.5 X10*3/uL (0.1-1.2); Monocytes Percent Auto 8.5 % (2-11); Neutrophils Absolute Auto 2.8 x10*3/uL (2.0-8.3); Neutrophils Percent Auto 45.1 % (45-73); Platelet Count 265 X10*3/uL (160-400); Red Blood Count 4.17 X10*6/uL (4.20-5.50); Red Cell Distribution Width 15.2 % (11.0-16.0); White Blood Count 6.3 X10*3/uL (4.8-10.8)
[2024-03-24 16:55] LABS: Alanine Aminotransferase 21 U/L (0-31); Alkaline Phosphatase 51 U/L (39-117); Anion Gap 13 (12-20); Aspartate Amino Transferase 24 U/L (5-31); Bilirubin Total 0.6 mg/dL (0.0-1.0); Blood Urea Nitrogen 12 mg/dL (9-16); C Reactive Protein < 0.04 mg/dL (< or = 0.50); Calcium 9.4 mg/dL (8.4-10.2); Carbon Dioxide 25 mmol/L (22-29); Chloride 110 mmol/L (96-108); Estimated Glomerular Filt Rate > 60; Glucose Random 116 mg/dL (60-115); Potassium 3.7 mmol/L (3.3-5.1); Sodium 144 mmol/L (135-145); Total Protein 6.6 g/dL (6.5-8.0)
[2024-03-24 18:07] LABS: Erythrocyte Sedimentation Rate 4 MM/HR (0-20)
== END 2024-03-24 12:42 | disposition home or self-care (01) ==
LOC: HO.HMGCLDS 12:41
PROVIDERS: PCP Nurse Practitioner; Visit Provider Student in an Organized Health Care Education/Training Program
DX: M05.80 Other rheumatoid arthritis with rheumatoid factor of unspecified site (principal)
CPT/HCPCS: 36415; 80053; 85025; 85652; 86140

== ENCOUNTER 2024-06-01 14:17 | Outpatient (REF) | payer OTHER, SELFPAY ==
--- OUTSIDE RECORDS SUMMARY | 2024-06-01 17:19 | XMS_ITS | Continuity of Care Document ---
Author Organization [facility] Address [address] [place] [address] Phone Care Team Providers Care Car Ferry Captain Name Role Phone Fito Short Unavailable Unavailable [...] Providers Copied on Encounter [facility], [address], [place], [id number], [place] tel:[phone] CVR - [place] - [facility] No Information 5 Sherie Payton. [address] [place] [address], [address], [place], [id number], [place]. tel:[phone] Referring Provider: Collins Gipson, [address], [address], [place], [address]. tel:[phone] Office/Outpt E&M Established 15 Mins- [place] & [place] [facility], [address] [place] [address] [address], [place], [id number], [place] tel:[phone] CVR - [facility] Localized edemaVenous insufficiency (chronic) (peripheral) Nov- 4 Jorge SCHRADER RVT, MARJORIE Irvin. [address] [place] [address] [address], [place], [id number], [place]. tel:[phone] Referring Provider: Collins Gipson, [address], [address], [place], [address]. tel:[phone] [facility], [address] [place] [address] Dr [address], [place], [id number], [place] tel:[phone] CVR - [facility] Varicose veins of right lower extremity with pain Nov- 4 Jorge SCHRADER RVT, MARJORIE Irvin. [address] [place] [address] [address], [place], [id number], [place]. tel:[phone] Referring Provider: Collins Gipson, [address], [address], [place], [address]. tel:[phone] [facility], [address] [place] [address] Dr [address], [id number], [place] tel:[phone] CVR - [place] - [facility] Encounter for follow-up examination after completed treatment for conditions other than malignant nePain in right leg Oct 4 Jorge SCHRADER RVT, MARJORIE Irvin. [address] [place] [address], [place], [id number], [place]. tel:[phone] Referring Provider: Collins Gipson, [address], [address], [place], [id number]. tel:[phone] [facility], [address] [place] [address] Dr [address], [id number], [place] tel:[phone] CVR - [place] - [place] Varicose veins of right lower extremity with other complications 4 Jorge SCHRADER RVT, MARJORIE Irvin. [address] [place] [address], [place], [id number], [place]. tel:[phone] Referring Provider: Collins Gipson, [address], [address], [place], [address]. tel:[phone] [facility], [address] [place] [address] Dr [address], [place], [id number], [place] tel:[phone] CVR - [place] - [place] No Information 4 Jorge SCHRADER, JOHN, MARJORIE Irvin. [address] [place] [address], [place], [id number], [place]. tel:[phone] Offic/outpt E&m Estab 5 Min Trial- Telemedicine [place] & [place] [facility], [address] [place] [address] Dr [address], [id number], [place] tel:[phone] CVR - [place] - [place] Lymphedema, not elsewhere classifiedVen ous insufficiency (chronic) (peripheral) 4 Sherie Payton. [address] [place] [address] [address], [place], [id number], [place]. tel:[phone] Referring Provider: Collins Gipson, [address], [place], [address]. tel:[phone] Offic Cons New/estab Mod 40 Mi- CT & [place] [facility], [address] [place] [address] [address], [place], [id number], tel:[phone] CVR - [place] - Nar[place] Varicose veins of right lower extremity with other complications Pain in right lower legPain in left lower legPain in right legLymphedema , not elsewhere classifiedPai n in left legHereditary lymphedemaLoc alized edema 4 Jorge SCHRADER RVT, MARJORIE Irvin. [address] [place] [address], [address], [place], [id number], [place]. tel:[phone] Referring Provider: Collins Gipson, [address], [address], [place], [address]. tel:[phone] [facility], [address] [place] [address] [address], [place], [id number], [place] tel:[phone] CVR - [place] - Nar[place] Varicose veins of bilateral lower extremities with pain 4 Jorge SCHRADER RVT, MARJORIE Irvin. [address] [place] [address], [address], [place], [id number], [place]. tel:[phone] Referring Provider: Collins Gipson, [address], [address], [place], [address]. tel:[phone] [facility], [address] [place] [address] Dr [address], [place], [id number], [place] tel:[phone] CVR - [place] - Nar[place] Pain in right leg June- 4 Jorge SCHRADER RVT, MARJORIE Irvin. [address] [place] [address], [address], [place], [id number], [place]. tel:[phone] Referring Provider: Collins Gipson, [address], [address], [place], [address]. tel:[phone] Family History Family Member Type Diagnosis Age At Onset No Information Payers Payer name Insurance type Covered libertarian ID Authoriza tion(s) No Information Social History [...]
--- OUTSIDE RECORDS SUMMARY | 2024-06-01 17:19 | XMS_ITS | Clinical Summary ---
Author Organization [facility] Address [address] [place] [address] Phone Care Team Providers Care Mail Caller Name Role Phone Tim Chambers MD Primary Care Provider [phone] Social History Tobacco Use Types Packs/Day Years Used Date Smoking Tobacco: Never Assessed Comments Unknown Sex and Gender Information Value Date Recorded Sex Assigned at Not on file Legal Sex Female 8:39 PM EST Gender Identity Not on file Sexual Orientation Not on file Plan of Treatment Health Maintenance Due Date Last Done Comments Breast Cancer Screening 1950 DTaP,Tdap,and Td Vaccines (1 - Tdap) 08/11/1971 Pneumococcal Vaccine: 50+ Ye ars (1 of 1 - PCV) 2002 Zoster Vaccines (1 of 2) 2002 Colorectal Cancer Screening: Colonoscopy 03/12/2023 Depression Screening 03/12/2023 Falls Risk Assessment 03/12/2023 Hepatitis C Screening 03/12/2023 Osteoporosis Screening (Bone Density Screening) 03/12/2023 Social Influencers of Health Screening 03/12/2023 COVID-19 Vaccine ( - 2023-2 5 season) 2023 Influenza Vaccine (Season Ended) 2024 RSV Immunization Adult Patie nts (1 - 1-dose 75+ series) 08/11/2027 HIB [...] patient's age to complete this topic Meningococcal B Vaccine Aged Out No l onger eligible based on patient's age to complete this topic RSV Immunization Patients Un flavio 20 months Aged Out No longer eligible b ased on patient's age to complete this topic Varicella Vaccines Aged Out No longer eligible based on patient's age to complete this topic Insurance [employer] [facility] Care Teams Mail Caller Relationship Specialty Start Date End Date Tim Chambers MD [address] [place] [address] PCP - General 02/15/10
[2024-06-01 17:55] LABS: Free T4 (Free Thyroxine) 0.87 ng/dL (0.71-1.85); Thyroid Stimulating Hormone 1.43 uIU/mL (0.32-4.0)
[2024-06-06 22:08] LABS: Thyroglobulin Antibodies <1 IU/mL (< or = 1)
[2024-06-07 22:19] LABS: Thyroid Peroxidase Antibodies 1 IU/mL (<9)
== END 2024-06-01 14:18 | disposition home or self-care (01) ==
LOC: HO.HMGCLDS 14:17
PROVIDERS: PCP Nurse Practitioner; Visit Provider Student in an Organized Health Care Education/Training Program
DX: E07.9 Disorder of thyroid, unspecified (principal)
CPT/HCPCS: 36415; 84439; 84443; 86376; 86800

== ENCOUNTER 2024-07-03 18:24 | Emergency (ER) | payer OTHER, SELFPAY ==
--- NOTE | ~2024-07-03 | XR_ITS ---
CLINICAL HISTORY: fall, pain Radiographs of the right wrist, 4 views Comparison: None Findings: No fracture or dislocation. Mild degenerative change. Bone mineralization is decreased. Soft tissue swelling. Impression: No fracture. This document has been electronically signed by: Lanette Boyer MD on 07/03/2024 21:49:31
--- NOTE | ~2024-07-03 | CT_ITS ---
CLINICAL HISTORY: fall, syncope CT of the head without contrast. Comparison MR 03/18/2023. Findings: There has been a frontal craniotomy with encephalomalacia in the left frontal lobe. No acute hemorrhage or infarct is seen. No masses are identified and there is no hydrocephalus. There is no mass-effect. Impression: No acute intracranial abnormality is identified. This document has been electronically signed by: Rayshawn Gu MD on 07/03/2024 20:32:44
--- NOTE | ~2024-07-03 | XR_ITS ---
CLINICAL HISTORY: fall, pain Radiographs of the right knee, 4 views Comparison: 07/13/23 Findings: There is no fracture or dislocation. [id number] medial tibiofemoral compartment joint space narrowing with mild osteophytosis. Suprapatellar enthesophyte. Bone mineralization is decreased. No joint effusion. Soft tissue swelling. Impression: No fracture or joint effusion. This document has been electronically signed by: Lanette Boyer MD on 07/03/2024 21:50:15
--- NOTE | ~2024-07-03 | CT_ITS ---
CLINICAL HISTORY: fall, head inj CT of the cervical spine without contrast. No comparison. Findings: No acute fractures are seen. There are prominent degenerative changes. Minimal malalignment is likely degenerative in nature. There is an indeterminate right thyroid nodule. Impression: No acute fractures. Other findings as above. This document has been electronically signed by: Rayshawn Gu MD on 07/03/2024 20:42:22
--- NOTE | ~2024-07-03 | XR_ITS ---
CLINICAL HISTORY: fall, pain Radiographs of the pelvis and right hip, 3 views Comparison: None Findings: No fracture or dislocation. Mild degenerative change. Bone mineralization is decreased. Soft tissue swelling. Impression: No fracture. This document has been electronically signed by: Lanette Boyer MD on 07/03/2024 21:50:53
--- NOTE | ~2024-07-03 | XR_ITS ---
CLINICAL HISTORY: fall, syncope Chest Radiographs, 2 views Comparison: 02/26/23 Findings: No cardiomegaly. Normal mediastinal contours. No pneumothorax. No opacity. No pleural effusion. Normal upper abdomen. No acute fracture. Impression: No acute findings. This document has been electronically signed by: Lanette Boyer MD on 07/03/2024 21:49:01
--- NOTE | ~2024-07-03 | CT_ITS ---
CLINICAL HISTORY: syncope, elevated dimer, new RBBB CT angiography chest with contrast. 3D Postprocessing. Comparison: None Findings: There is no pulmonary embolism. Heart size is within normal limits. There is no pericardial effusion. Thoracic aorta is normal in diameter without dissection. There are no enlarged lymph nodes. There is mild bibasilar atelectasis. Lungs appear otherwise clear. Trachea and central bronchi are widely patent. There is no acute fracture or suspicious lytic or sclerotic lesion. Limited images of the upper abdomen demonstrate no acute findings. There are left renal cysts and hepatic cysts. Patient is status post cholecystectomy. IMPRESSION: No pulmonary embolism. This document has been electronically signed by: Oracio Fraser MD on 07/04/2024 02:14:54
--- NOTE | ~2024-07-03 | XR_ITS ---
CLINICAL HISTORY: fall, pain --- Additional Notes or Special Instructions: needs to be [id number] 3 view right shoulder Comparison: None Findings: Bones intact. No dislocations. Moderate degenerative changes of the glenohumeral and acromioclavicular joints. No erosions. No radiopaque foreign body. IMPRESSION: Moderate degenerative changes of the glenohumeral and acromioclavicular joints. This document has been electronically signed by: Rich Rebollar MD on 07/04/2024 07:02:52
[2024-07-03 18:43] VITALS: BP 159/78; BP 160/63; PULSE 79; PULSE 86; RESP 14; TEMP 36.4; O2SAT 98; O2SAT 99
[2024-07-03 18:50] VITALS: BP 159/78; PULSE 79; RESP 14; TEMP 36.4; O2SAT 99
--- NOTE | 2024-07-03 18:53 | ECG_ITS ---
Test Reason : FALL Blood Pressure : */* mmHG Vent. Rate : 74 BPM Atrial Rate : 74 BPM P-R Int : 144 ms QRS Dur : 132 ms QT Int : 454 ms P-R-T Axes : 30 -63 23 degrees QTcB Int : 503 ms Normal sinus rhythm Right bundle branch block Left anterior fascicular block Bifascicular block Abnormal ECG When compared with ECG of 30-Mar-2020 18:52, (RBBB and left anterior fascicular block) is now Present Referred By: Arline Payne Electronically Signed By: Scott Wetzel
--- NOTE | 2024-07-03 18:54 | ED.HEATRA ---
HPI - Head Injury General Chief complaint: Fall Stated complaint: fall, loc after fall lasting 1min per Time Seen by Provider: 07/03/24 18:36 Related Data Previous Rx's ?Medication ?Instructions ?Recorded folic acid 1 mg tablet 1 mg PO DAILY 90 days #90 tabs 11/30/23 methotrexate sodium 2.5 mg tablet 7.5 mg (3 x 2.5 mg) PO QWEEK 90 11/30/23 days #39 tabs Allergies Allergy/AdvReac Type Severity Reaction Status Date / Time sulfasalazine Allergy Intermediate Hives Verified 07/03/24 18:45 morphine [Morphine] Allergy Mild HYPOTENSION Verified 07/03/24 18:45 levofloxacin Allergy Unknown Verified 07/03/24 18:45 hydrocodone [From Vicodin] AdvReac Mild NAUSEA & Verified 07/03/24 18:45 VOMITING indomethacin [From Indocin] AdvReac Mild MIGRAINE Verified 07/03/24 18:45 HEADACHE Penicillins AdvReac Mild TACHYACRDIA Verified 07/03/24 18:45 prednisolone AdvReac Hives Verified 07/03/24 18:45 PMFSH Past Medical History Medical History Diverticulitis No known health problems Surgical History History of colon resection Social History Social History Household Members: Spouse Housing: House Are you a primary manager home healthcare to a significant other at home: No Do you presently have visiting nurse or other home services: No Alcohol intake: never Patient Tobacco Use Status: Never used Tobacco Smoked in Last 30 Days: No e-Cigarette/Vaping Use: Never Used Use of substances other than those prescribed or required for medical reasons: No Do you have a plan to hurt others: No Plan service: No Current occupational status: retired Physical Exam Vital Signs: Vital Signs: Last Vital Signs Temp 97.5 F 07/03/24 18:50 Pulse 79 07/03/24 18:50 Resp 14 07/03/24 18:50 BP 159/78 H 07/03/24 18:50 Pulse Ox 99 07/03/24 18:50 O2 Del Method Room Air 07/03/24 18:50 BMI result Body Mass Index 30.0 Discharge Plan Discharge Prescriptions: No Action folic acid 1 mg tablet 1 mg PO DAILY 90 Days Qty: 90 1RF methotrexate sodium 2.5 mg tablet 7.5 mg PO QWEEK 90 Days Qty: 39 1RF Print Language: Romanian
--- NOTE | 2024-07-03 18:55 | ED_ITS ---
HPI - Syncope General Chief Complaint: Fall Stated Complaint: fall, loc after fall lasting 1min per Time Seen by Provider: 07/03/24 18:36 Source: patient and EMS Mode of arrival: EMS Limitations: no limitations History of Present Illness ED Provider: collin cloud np HPI narrative: Patient is a 73-year-old female with past medical history of RAVEN, rheumatoid arthritis, osteopenia who presents emergency departmentVia EMS for evaluation. Patient reports that she was outside in the garden, her right knee began to give out which is not uncommon for her secondary to her rheumatoid arthritis she subsequently fell landing onto her right side. No use of anticoagulants or known coagulation disorders. She denies any head strike or loss of consciousness with this fall but she was having some discomfort to her right knee as well as right wrist pain. Her assisted her to get back into the house. She reports that she sat down on a chair, she began to feel slightly dizzy so she decided to rest her head back. Has been reports that she lost consciousness for approximately 1 minute. She awoke to him telling her that she had passed out which she did not recall. At this time she reports having some lightheadedness and pain to her right wrist, her right knee pain feels consistent with her baseline. Upon awakening as well as at this time, she denies having any headache, vision changes, dizziness, neck pain, neck stiffness , chest pain, shortness of breath, palpitations, nausea, vomiting, abdominal pain, numbness or tingling of the extremities, bladder bowel dysfunction. Denies any recent bleeding, hematochezia, melena, genitourinary symptoms. denies history of VTE. Related Data Previous Rx's ?Medication ?Instructions ?Recorded folic acid 1 mg tablet 1 mg PO DAILY 90 days #90 tabs 11/30/23 methotrexate sodium 2.5 mg tablet 7.5 mg (3 x 2.5 mg) PO QWEEK 90 11/30/23 days #39 tabs cefuroxime axetil 250 mg tablet 250 mg PO BID #9 tabs 07/04/24 Allergies Allergy/AdvReac Type Severity Reaction Status Date / Time sulfasalazine Allergy Intermediate Hives Verified 07/03/24 18:45 morphine [Morphine] Allergy Mild HYPOTENSION Verified 07/03/24 18:45 levofloxacin Allergy Unknown Verified 07/03/24 18:45 hydrocodone [From Vicodin] AdvReac Mild NAUSEA & Verified 07/03/24 18:45 VOMITING indomethacin [From Indocin] AdvReac Mild MIGRAINE Verified 07/03/24 18:45 HEADACHE Penicillins AdvReac Mild TACHYACRDIA Verified 07/03/24 18:45 prednisolone AdvReac Hives Verified 07/03/24 18:45 Review of Systems 2 Review of Systems: Yes all other systems are reviewed and are negative PMFSH Past Medical History Attestation statement: The following information was validated with the patient. Source: old records reviewed Medical History Diverticulitis No known health problems Surgical History History of colon resection Social History Social History Household Members: Spouse Housing: House Are you a primary care team assistant to a significant other at home: No Do you presently have visiting nurse or other home services: No Alcohol intake: never Patient Tobacco Use Status: Never used Tobacco Smoked in Last 30 Days: No e-Cigarette/Vaping Use: Never Used Use of substances other than those prescribed or required for medical reasons: No Advance Directives: No Advance Directives Information Provided: No Do you have a plan to hurt others: No Plan service: No Current occupational status: retired Physical Exam 2 Vital Signs: Vital Signs: Last Vital Signs Temp 97.9 F 07/04/24 01:58 Pulse 86 07/04/24 01:58 Resp 18 07/04/24 01:58 BP 151/75 H 07/04/24 01:58 Pulse Ox 98 07/04/24 01:58 O2 Del Method Room Air 07/04/24 01:58 BMI result Body Mass Index 30.0 Appearance: Alert.?Oriented to person, place and time. No acute distress.?Normal affect. Head: Normocephalic Eyes: Pupils equal, round and reactive to light. EOMI. Conjunctiva and sclera normal? No Arce sign noted. No raccoon eyes noted ENT: No septal hematoma, nares patent bilaterally. External auditory canal normal tympanic membrane pearly servin and intact bilaterally. Dentition normal, no fractured teeth. No lesions or lacerations of oropharynx. Uvula midline. Moist mucous membranes. Neck: Normal inspection.? Neck supple.??No palpable tenderness, step-off, deformities. CVS: Heart sounds normal. Normal heart rate and rhythm.? Pulses normal.?? Respiratory: No respiratory distress.? Lung sounds clear to auscultation bilaterally?? Abdomen: Soft and non-tender. Normoactive bowel sounds. ?? Skin: Skin warm and dry.? Normal skin color.? Normal skin turgor.?? Extremities: As localized chronic swelling to the right knee by her account not increased from baseline With full range of motion, otherwise No lower extremity edema.? no calf tenderness upon palpation. 2+ DP/PT pulse bilaterally. right wrist without obvious deformity, mild decreased AROM, 2+ radial pulse. Neuro: Moves all extremities spontaneously. Sensation intact bilaterally. CN II- XII intact. No focal neuro deficits. Course Reevaluation(s) Reevaluation #1: CBC reveals a mild leukocytosis of 11,600, No anemia or thrombocytopenia. No significant electrolyte derangement. No LYNDON. High sensitive troponin below detectable limits x2. LFTs unremarkable. EKG revealing normal sinus rhythm with new right bundle-branch block not seen on prior, left anterior fascicular block previously seen, ventricular rate of 74, QTC 503. Given her syncope and new right bundle-branch block, D-dimer which was elevated at 1,004 - for which she will have a CT angio of the chest to evaluate further for pulmonary embolism. Denies any shortness of breath. She has no tachypnea hypoxia she is in no respiratory distress. Denies any recent dyspnea on exertion. He has chronic swelling to the bilateral may secondary to her arthritis, pitting edema bilaterally no erythema or warmth, no calf tenderness upon palpation. Urinalysis with 1+ leukocyte esterase urine nitrites and 4+ Bacteria concerning for urinary tract infection for which she received the 1st dose of cefuroxime. CT of the head and cervical spine without acute pathology no ICH, SDH, fracture, subluxation. XR imaging of the hips/pelvis, right knee, chest, and right wrist were without acute osseous abnormality Reevaluation #2: CT angiography chest with contrast. 3D Postprocessing. Comparison: None Findings: There is no pulmonary embolism. Heart size is within normal limits. There is no pericardial effusion. Thoracic aorta is normal in diameter without dissection. There are no enlarged lymph nodes. There is mild bibasilar atelectasis. Lungs appear otherwise clear. Trachea and central bronchi are widely patent. There is no acute fracture or suspicious lytic or sclerotic lesion. Limited images of the upper abdomen demonstrate no acute findings. There are left renal cysts and hepatic cysts. Patient is status post cholecystectomy. IMPRESSION: No pulmonary embolism. patient was made aware of these findings. She is ambulatory with a steady gait. Remains without any focal neurological deficits. reviewed this case with my attending Dr. Jacob, feel that she is otherwise stable for discharge at this time. suspect that the syncope was secondary to the fall /head injury. Unfortunately, given the hour of night she does not have safe transportation home. Spoke with charge nurse, she will remain in the emergency department overnight until her is awake in the morning. Regarding her right wrist where she continues to have some mild pain, symptoms at this time are consistent with a sprain for which he was placed in a volar wrist splint and we reviewed conservative treatment including rest, ice, elevation, and acetaminophen for pain management. Will sent course of antibiotics to her pharmacy for urinary tract infection Placed in physician observation at 02:15 on 07/04/2024 Reevaluation #3: Dr. Jacob: The patient was signed out to me pending the patient getting a ride home. She had had an extensive workup but could not get a ride told the morning. During the remainder of the overnight shift she complained also of some right shoulder pain. Her right shoulder had not been previously imaged. I examined her. She has some pain and tenderness at the right shoulder but no findings highly suspicious for a fracture. An x-ray was done that shows findings of arthritis but no fracture. She will be provided a sling. Given her injury to her right wrist and her right shoulder I think it would be good for her to see her orthopedic team at [facility]. She was provided with a sling for her shoulder, a splint for her right wrist, and should follow up with [facility]. Time: 07:37 Medications Administered Discontinued Medications Generic Name Dose Route Start Last Admin Trade Name Freq PRN Reason Stop Dose Admin Acetaminophen 975 mg 07/03/24 23:08 07/03/24 23:13 Acetaminophen 325 Mg Tablet PO 07/03/24 23:09 975 mg ONCE ONE Administration Acetaminophen 975 mg 07/04/24 05:15 07/04/24 05:49 Acetaminophen 325 Mg Tablet PO 07/04/24 05:16 975 mg ONCE ONE Administration Cefuroxime Axetil 250 mg 07/04/24 00:33 07/04/24 01:55 Cefuroxime Axetil 250 Mg Tablet PO 07/04/24 00:34 250 mg ONCE ONE Administration Sodium Chloride 1,000 mls @ 999 mls/hr 07/04/24 01:30 07/04/24 03:08 Ns IV 07/04/24 02:30 Infused .Q1H1M NIGEL Infusion Iohexol 75 ml 07/04/24 01:32 07/04/24 01:33 Iohexol 350 Mg/Ml 100 Ml Infus..Btl IV 07/04/24 01:33 75 ml ONCE ONE Administration Medical Decision Making Medical Decision Making [facility] Narrative: Patient is a 73-year-old female with past medical history of RAVEN, rheumatoid arthritis, osteoarthritis, osteopenia Who presents emergency department via EMS for evaluation, she had a mechanical fall due to her right knee giving out (secondary to her arthritis ) with subsequent right wrist pain but no reported head strike or loss of consciousness where she was assisted inside afterwards by her she ultimately sat down and then had a syncopal episode for 1 minute while sitting in the chair. Post syncope she endorses having mild lightheadedness and still continues to experience this at this time otherwise she offers no further complaints as per HPI. Denies associated chest pain, shortness of breath, palpitations and was not during exercise/exertion to suggest aortic stenosis, ACS, pulmonary embolism, pericardial effusion, aortic dissection. No focal neurological deficits, diplopia, or associated headache to suggest SAH, CVA, basilar insufficiency. However, given her preceding fall though she does not believe she struck her head given her age will obtain CT of the head to exclude ICH, SDH, fracture and CT of the cervical spine to exclude fracture, traumatic subluxation. Her right upper extremity is neurovascularly intact distally has mild decreased AROM to the right wrist without obvious deformity plan to obtain XR to exclude fracture/ dislocation. No history of seizure disorder, no bladder bowel dysfunction To suggest alternative etiology of this syncopal episode. Will obtain CBC to evaluate for leukocytosis/ anemia, CMP and lipase to evaluate for abnormal electrolytes /abnormal renal function/ abnormal hepatic/biliary function, EKG and troponin to evaluate for ischemia/ACS, Chest x-ray, orthostatic vital sign and Urinalysis. Differential Diagnosis Differential Diagnoses: The differential diagnosis associated with the presentation includes (See narrative above) Admission/Observation Consideration of admission/observation: Escalation of care including admission/observation considered (See narrative above) Lab Data MDM Lab Attestation statement: I reviewed the patient's lab results. 07/03/24 19:52 07/03/24 19:52 Labs: Lab Results 07/03/24 07/03/24 07/04/24 Range/Units 19:52 20:48 00:41 WBC 11.6 H (4.8-10.8) X10*3/uL RBC 4.37 (4.20-5.50) X10*6/uL Hgb 13.7 (12.0-16.0) g/dl Hct 39.5 (37.0-47.0) % MCV 90.4 (80.0-98.0) fL MCH 31.4 (27.0-33.0) pg MCHC 34.7 (31.0-35.0) g/dl RDW 14.6 (11.0-16.0) % Plt Count 258 (160-400) X10*3/uL MPV 9.2 L (9.4-12.3) fL Immature Gran % (Auto) 0.3 (0.0-0.4) % Neut % (Auto) 68.1 (45-73) % Lymph % (Auto) 22.7 (20-40) % [place] % (Auto) 8.2 (2-11) % Eos % (Auto) 0.3 (0-4) % Baso % (Auto) 0.4 (0-2) % Lymph # (Auto) 2.6 (1.2-4.9) X10*3/uL [place] # (Auto) 1.0 (0.1-1.2) X10*3/uL Eos # (Auto) 0.0 (0.0-0.4) X10*3/uL Baso # (Auto) 0.1 (0.0-0.2) X10*3/uL Abs Immat Gran (auto) 0.03 (0.00-0.03) X10*3/uL Absolute Neuts (auto) 7.9 (2.0-8.3) x10*3/uL Absolute Nucleated RBC 0.000 (0.0-0.012) X10*3/uL Nucleated RBC % (auto) 0.0 (0.0-0.2) /100WBC PT 12.5 H (10.9-12.4) SEC INR 1.1 (0.9-1.1) D-Dimer High Sensitivty 1004 NG/ML Sodium 141 (135-145) mmol/L Potassium 4.0 (3.3-5.1) mmol/L Chloride 111 H (96-108) mmol/L Carbon Dioxide 21 L (22-29) mmol/L Anion Gap 13 (12-20) BUN 17 H (9-16) mg/dL Creatinine 0.71 (0.5-1.4) mg/dL Estim Creat Clear Calc 63.2 Estimated GFR > 60 Random Glucose 104 (60-115) mg/dL Calcium 9.8 (8.4-10.2) mg/dL Magnesium 2.1 (1.6-2.6) mg/dL Total Bilirubin 0.5 (0.0-1.0) mg/dL AST 24 (5-31) U/L ALT 16 (0-31) U/L Alkaline Phosphatase 57 (39-117) U/L Troponin I High Sens < 2.7 < 2.7 (<3.5-17.0) ng/L B-Natriuretic Peptide 28 (<100) pg/mL Total Protein 7.0 (6.5-8.0) g/dL Albumin 4.2 (3.5-5.0) g/dL Lipase 26 (8-78) U/L Urine Color Yellow Urine Appearance Clear Urine pH 7.0 (5.0-9.0) Ur Specific [place] <= 1.005 (1.005-1.025) Urine Protein Negative (Neg-Trace) mg/dL Urine Glucose (UA) Negative (Negative) mg/dL Urine Ketones 15 (Negative) mg/dL Urine Blood Negative (Negative) Urine Nitrite Positive H (Negative) Ur Leukocyte Esterase Small (1+) H (Negative) Urine RBC 0-2 (0-2) /HPF Urine WBC 0-5 (0-5) /HPF Ur Squamous Epith Cells 0-2 (0-2) /HPF Urine Bacteria 4+ (None Seen) Hyaline Casts 0-2 (0-2) /LPF Independent Interpretation I performed an independent interpretation of an: EKG ( see course narrative) and Plain X-Ray ( See course narrative) Radiology Impression Discussion of test interpretation with radiology: I have reviewed the radiologist's reading. Radiologist Impression: CT of the head without contrast. Comparison MR 03/18/2023. Findings: There has been a frontal craniotomy with encephalomalacia in the left frontal lobe. No acute hemorrhage or infarct is seen. No masses are identified and there is no hydrocephalus. There is no mass-effect. Impression: No acute intracranial abnormality is identified. CT of the cervical spine without contrast. No comparison. Findings: No acute fractures are seen. There are prominent degenerative changes. Minimal malalignment is likely degenerative in nature. There is an indeterminate right thyroid nodule. Impression: No acute fractures. Other findings as above. CT of the cervical spine without contrast. No comparison. Findings: No acute fractures are seen. There are prominent degenerative changes. Minimal malalignment is likely degenerative in nature. There is an indeterminate right thyroid nodule. Impression: No acute fractures. Other findings as above. Radiographs of the pelvis and right hip, 3 views Comparison: None Findings: No fracture or dislocation. Mild degenerative change. Bone mineralization is decreased. Soft tissue swelling. Impression: No fracture. Chest Radiographs, 2 views Comparison: 02/26/23 Findings: No cardiomegaly. Normal mediastinal contours. No pneumothorax. No opacity. No pleural effusion. Normal upper abdomen. No acute fracture. Impression: No acute findings. Radiographs of the right wrist, 4 views Comparison: None Findings: No fracture or dislocation. Mild degenerative change. Bone mineralization is decreased. Soft tissue swelling. Impression: No fracture. CT angiography chest with contrast. 3D Postprocessing. Comparison: None Findings: There is no pulmonary embolism. Heart size is within normal limits. There is no pericardial effusion. Thoracic aorta is normal in diameter without dissection. There are no enlarged lymph nodes. There is mild bibasilar atelectasis. Lungs appear otherwise clear. Trachea and central bronchi are widely patent. There is no acute fracture or suspicious lytic or sclerotic lesion. Limited images of the upper abdomen demonstrate no acute findings. There are left renal cysts and hepatic cysts. Patient is status post cholecystectomy. IMPRESSION: No pulmonary embolism. Independent Historian Clinical information obtained from an independent historian. History obtained from or confirmed by: EMS External Record Review External record reviewed: Outpatient record Chronic Conditions Patient?s care impacted by: Other ( see narrative above) Discharge Plan Discharge Clinical Impression: Head injury, acute, with loss of consciousness, Syncope, Sprain of wrist, right, Right bundle branch block, Acute UTI, Contusion of right shoulder Patient Disposition: Home, Self-Care Additional Instructions: Pain in your right wrist secondary to a sprain for which you were given a wrist splint to use over the next few days. Be sure to rest, apply ice for 10-15 minutes 4-6 times daily, elevate your wrist above the level of your chest when possible, You can take Tylenol 500 mg, 2 tablets (1,000mg) every 4-6 hours as needed for pain, but not to exceed 3 doses daily (3,000mg).? Wear the sling for comfort to help your right shoulder discomfort. Please follow up with your orthopedic doctor at [facility] to discuss the injury to your right shoulder and your right wrist. You were found to have an abnormal finding on your EKG; a right bundle-branch block, this is a delay in the electrical activity of your heart. Please make your primary care doctor aware of this finding. As mentioned, there was no evidence of a blood clot in the lungs which can sometimes cause individuals to have dizziness / lightheadedness or passing out, can also cause this abnormal EKG finding. You were found to have a urinary tract infection while in the emergency department, you received the first dose of antibiotics, a prescription for the remainder has been sent to your pharmacy. If you develop nausea, vomiting, abdominal pain, back pain, fevers, chills, or any concerning symptoms you should seek re-evaluation. Prescriptions: New cefuroxime axetil 250 mg tablet 250 mg PO BID Qty: 9 0RF No Action folic acid 1 mg tablet 1 mg PO DAILY 90 Days Qty: 90 1RF methotrexate sodium 2.5 mg tablet 7.5 mg PO QWEEK 90 Days Qty: 39 1RF Referrals: [facility] [Provider Group] (right wrist and shoulder injuries) Collins Pizano NP [Primary Care Provider] - Print Language: Hebrew
[2024-07-03 19:57] LABS: MANUAL DIFF FLAG NO
[2024-07-03 19:58] LABS: Basophils Absolute Auto 0.1 X10*3/uL (0.0-0.2); Basophils Percent Auto 0.4 % (0-2); Eosinophils Percent Auto 0.3 % (0-4); Hematocrit 39.5 % (37.0-47.0); Hemoglobin 13.7 g/dl (12.0-16.0); Imm Gran Abs Auto 0.03 X10*3/uL (0.00-0.03); Imm Gran Pct Auto 0.3 % (0.0-0.4); Lymphocytes Absolute Auto 2.6 X10*3/uL (1.2-4.9); Lymphocytes Percent Auto 22.7 % (20-40); Mean Corpuscular HGB Conc 34.7 g/dl (31.0-35.0); Mean Corpuscular Hemoglobin 31.4 pg (27.0-33.0); Mean Corpuscular Volume 90.4 fL (80.0-98.0); Mean Platelet Volume 9.2 fL (9.4-12.3); Monocytes Percent Auto 8.2 % (2-11); Neutrophils Absolute Auto 7.9 x10*3/uL (2.0-8.3); Neutrophils Percent Auto 68.1 % (45-73); Platelet Count 258 X10*3/uL (160-400); Red Blood Count 4.37 X10*6/uL (4.20-5.50); Red Cell Distribution Width 14.6 % (11.0-16.0); White Blood Count 11.6 X10*3/uL (4.8-10.8)
[2024-07-03 20:14] LABS: Alanine Aminotransferase 16 U/L (0-31); Albumin Level 4.2 g/dL (3.5-5.0); Alkaline Phosphatase 57 U/L (39-117); Anion Gap 13 (12-20); Aspartate Amino Transferase 24 U/L (5-31); Bilirubin Total 0.5 mg/dL (0.0-1.0); Blood Urea Nitrogen 17 mg/dL (9-16); Calcium 9.8 mg/dL (8.4-10.2); Carbon Dioxide 21 mmol/L (22-29); Chloride 111 mmol/L (96-108); Creatinine Clr Calc Pharmacy 63.2; Estimated Glomerular Filt Rate > 60; Glucose Random 104 mg/dL (60-115); Lipase 26 U/L (8-78); Magnesium 2.1 mg/dL (1.6-2.6); Sodium 141 mmol/L (135-145)
[2024-07-03 20:20] LABS: B Type Natriuretic Peptide 28 pg/mL (<100)
[2024-07-03 20:22] LABS: Troponin-I High Sensitivity < 2.7 ng/L (<3.5-17.0)
--- NOTE | 2024-07-03 20:50 | PC.NURSE ---
C-collar removed per PA
[2024-07-03 20:56] LABS: Appearance Urine Clear; Color Urine Yellow; Glucose Urine UA Negative (Negative); Leukocyte Esterase Urine Small (1+) (Negative); Nitrite Urine Positive (Negative); Specific Gravity - Urine <= 1.005 (1.005-1.025); UMIC TRIGGER UACC YES; Urine Blood Negative (Negative); Urine Ketones 15 mg/dL (Negative); Urine Protein Negative (Neg-Trace)
[2024-07-03 21:07] LABS: Bacteria Urine 4+ (None Seen); Hyaline Casts Urine 0-2 /LPF (0-2); RBC Urine 0-2 /HPF (0-2); Squamous Epithelial Cell Urine 0-2 /HPF (0-2); UACC Culture Trigger YES; WBC Urine 0-5 /HPF (0-5)
[2024-07-03 21:51] VITALS: BP 128/74; PULSE 83; RESP 16; TEMP 36.8; O2SAT 99
[2024-07-03] MEDS: Acetaminophen 325 MG TABLET 975 MG PO (23:13)
[2024-07-04 00:52] LABS: INTERNATIONAL NORM RATIO 1.1 (0.9-1.1); Prothrombin Time 12.5 SEC (10.9-12.4)
[2024-07-04 00:54] LABS: D Dimer High Sensitivity 1004 NG/ML
[2024-07-04 01:06] LABS: Troponin-I High Sensitivity < 2.7 ng/L (<3.5-17.0)
[2024-07-04] MEDS: iohexoL 350 MG/ML 100 ML INFUS..BTL 75 ML IV (01:33)
[2024-07-04] MEDS: 0.9 % Sodium Chloride 1,000 ML 999 ML IV (01:55)
[2024-07-04] MEDS: cefuroxime axetiL 250 MG TABLET PO (01:55)
[2024-07-04 01:58] VITALS: BP 151/75; PULSE 86; RESP 18; TEMP 36.6; O2SAT 98
[2024-07-04] MEDS: Acetaminophen 325 MG TABLET 975 MG PO (05:49)
[2024-07-04 07:48] VITALS: BP 147/74; PULSE 91; RESP 17; TEMP 36.2; O2SAT 93
[2024-07-04 08:35] VITALS: BP 147/74; PULSE 91; RESP 17; TEMP 36.2; O2SAT 93
== END 2024-07-04 08:35 | disposition home or self-care (01) ==
PROVIDERS: Nurse Practitioner Family; Emergency Provider Emergency Medicine; PCP Nurse Practitioner
DX: S06.9XAA Unspecified intracranial injury with loss of consciousness status unknown, initial encounter (principal); S63.501A Unspecified sprain of right wrist, initial encounter; S40.011A Contusion of right shoulder, initial encounter; W18.39XA Other fall on same level, initial encounter; R55 Syncope and collapse; N39.0 Urinary tract infection, site not specified; I45.10 Unspecified right bundle-branch block; M25.561 Pain in right knee; M25.531 Pain in right wrist; Z91.81 History of falling; Y93.H2 Activity, gardening and landscaping; Y92.017 Garden or yard in single-family (private) house as the place of occurrence of the external cause; Y99.9 Unspecified external cause status
CPT/HCPCS: 36415; 70450; 71046; 71275; 72125; 73030; 73110; 73502; 73564; 80053; 81001; 83690; 83735; 83880; 84484; 85025; 85379; 85610; 87086; 87088; 87186; 93005; 96360; 99284; 99285; Q9967

== ENCOUNTER → 2024-07-03 18:53 | Outpatient (BNV) | payer OTHER, SELFPAY | PROVIDERS: Emergency Provider Emergency Medicine; PCP Nurse Practitioner; Visit Provider Internal Medicine Cardiovascular Disease | DX: I45.2 Bifascicular block (principal) | CPT/HCPCS: 93010 ==

== ENCOUNTER → 2024-07-03 18:53 | Outpatient (BNV) | payer OTHER, SELFPAY | PROVIDERS: Emergency Provider Emergency Medicine; PCP Nurse Practitioner; Visit Provider Radiology Diagnostic Radiology | DX: J98.11 Atelectasis (principal); R55 Syncope and collapse; M25.761 Osteophyte, right knee; M70.71 Other bursitis of hip, right hip; R42 Dizziness and giddiness; M19.031 Primary osteoarthritis, right wrist | CPT/HCPCS: 70450; 71046; 72125; 73110; 73502; 73564 ==

== ENCOUNTER → 2024-07-04 01:17 | Outpatient (BNV) | payer OTHER, SELFPAY | PROVIDERS: Emergency Provider Emergency Medicine; PCP Nurse Practitioner; Visit Provider Radiology Diagnostic Radiology | DX: R55 Syncope and collapse (principal); M19.021 Primary osteoarthritis, right elbow | CPT/HCPCS: 71275; 73030 ==

== ENCOUNTER 2024-07-18 14:12 | Outpatient (AMB) | payer OTHER, SELFPAY ==
--- NOTE | 2024-07-18 14:27 | A.OFFVIS_ITS ---
Vital Signs 07/18/24 14:31 Height 5 ft Weight 145 lb 1.027 oz BMI 28.3 BP 110/66 Blood Pressure Location Lt brachial Position Sitting Pulse 81 Pulse Source Pulse Oximeter Intake Visit Reasons: C- DC- Follow up- Right Bundle Branch Block Intake Note: [facility]-F/up-Right bundle branch block Sccm Administrator Required: No Accompanied by: Significant Other Allergies sulfasalazine Allergy (Intermediate, Verified 07/03/24 18:45) Hives morphine [Morphine] Allergy (Mild, Verified 07/03/24 18:45) HYPOTENSION levofloxacin Allergy (Verified 07/03/24 18:45) Unknown hydrocodone [From Vicodin] Adverse Reaction (Mild, Verified 07/03/24 18:45) NAUSEA & VOMITING indomethacin [From Indocin] Adverse Reaction (Mild, Verified 07/03/24 18:45) MIGRAINE HEADACHE Penicillins Adverse Reaction (Mild, Verified 07/03/24 18:45) TACHYACRDIA prednisolone Adverse Reaction (Verified 07/03/24 18:45) Hives Medication List - Last Reconciled 07/18/24 by Fredis Hammond NP methotrexate sodium 7.5 mg (3 x 2.5 mg) PO QWEEK 90 days HPI Comments Details: This is a 73-year-old female patient referred to Cardiology consultation for evaluation of a new finding of right bundle branch block with left anterior fascicular block on an EKG. Patient is accompanied by her . The patient has a past medical history notable for brain tumor, status post surgical resection in the early 2009. She was recently hospitalized following a mechani hayley fall at home. According to the patient, she fell in her Dr. And was brought inside by her . Her then said that after sitting down on a chair she began to feel dizzy and slurring her words, subsequently experienced a brief loss of consciousness lasting approximately a minute. The patient does not recall the event. An extensive ER workup was reportedly negative. 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 The patient denies a prior history of cardiomyopathy, coronary artery disease, RO ischemic heart disease. Since the discovery of bifascicular block on her EKG, she she reports experiencing increased palpitations and intermittent chest discomfort. These episodes are random in nature, occurring both at rest and exertion, and is noticing that they are becoming more frequent recently. Patient is denying any associated shortness of breath, dizziness, orthopnea, PND, leg edema, presyncope, or syncope. [facility] Medical History Diverticulitis No known health problems Surgical History History of colon resection Family History Mother Heart disease Social History Household Members: Spouse Housing: House Are you a primary human services care specialist to a significant other at home: No Do you presently have visiting nurse or other home services: No 75 years or older and lives alone: No Alcohol intake: never Patient Tobacco Use Status: Never used Tobacco e-Cigarette/Vaping Use: Never Used service: No Current occupational status: retired Review of Systems Const Denies chills, Denies fatigue, Denies fever(s), Denies frequent falls, Denies weakness, Denies weight gain and Denies weight loss ENT Denies dizziness Card Denies chest pain, Denies leg edema, Denies lightheadedness, Denies palpitations, Denies dyspnea and Denies dyspnea on exertion Resp Denies cough, Denies dyspnea and Denies dyspnea on exertion GI Denies hematochezia Musc Denies abnormal gait, Denies muscle weakness, Denies numbness, Denies radiating pain into limb and Denies tingling Neuro Denies abnormal gait, Denies dizziness, Denies frequent falls, Denies numbness, Denies tingling and Denies weakness Endo Denies fatigue and Denies palpitations Physical Exam Vital Signs: Last Vital Signs Pulse 81 07/18/24 14:31 BP 110/66 07/18/24 14:31 BMI result Body Mass Index 28.3 Const General: cooperative, healthy appearing, comfortable and no acute distress Orientation/consciousness: patient oriented x3 HEENT Head: Yes normal to inspection Neck Neck: Yes normal visual inspection, Yes trachea midline and Yes supple Chest Chest palpation & inspection: normal inspection of the chest Resp Effort & Inspection: normal respiratory effort Auscultation: clear to auscultation bilaterally, no crackles, no rales, no rhonchi and no wheezes Cardio Jugular venous distension: no JVD Palpation: normal PMI Rate: regular rate Rhythm: regular rhythm Heart sounds: S1 normal heart sound present, S2 normal heart sound present, no click, no gallops, no murmurs and no rubs Peripheral pulses: Peripheral pulses 2+ throughout GI Inspection: Yes normal to inspection Palpation (GI): Soft to palpation Auscultation: normal bowel sounds Skin General skin exam: no rashes or lesions noted Neuro General: patient oriented x3 Extrem General: Yes normal to inspection, No no pedal edema and No calf tenderness Psych Appearance: grossly normal Mental Status: mental status grossly normal Speech and movement: Normal speech and movement present Assessment & Plan Assessment & Plan (1) Chest pain: Code(s): R07.9 - Chest pain, unspecified Category: Medical (2) Palpitations: Code(s): R00.2 - Palpitations Category: Medical (3) RBBB (right bundle branch block with left anterior fascicular block): Code(s): I45.2 - Bifascicular block Category: Medical (4) Hospital discharge follow-up: Code(s): Z09 - Encounter for follow-up examination after completed treatment for conditions other than malignant neoplasm Plan 07/03/2024-patient's EKG showed a normal sinus rhythm with right bundle branch block, left anterior fascicular block consistent with bifascicular block finding. Given her new finding of the bifascicular block on the EKG with new onset of palpitations and chest discomfort, we will proceed with a Holter monitor to assess for potential arrhythmias and the burden. We will also obtain a echocardiogram to evaluate for structural heart disease in, including RV size/function, septal motion, and LV function. We will also proceed with a myocardial perfusion study to assess for ischemic changes. Due to her arthritic problem and recent fall, we will proceed with a Lexiscan. Patient is also following up with her Neurology for a repeat MRI and an EEG given her recent episode of slurred speech and syncope. Blood pressure today is within normal limits. Further management and testings based on findings. Advised on heart healthy diet, regular exercise as tolerated, adequate hydration, and management of vascular risk factors. We will follow up with the patient after completion of these tests. In the interim, patient will call the office with any concerns or change in symptoms. This note was generated using voice recognition software. While every effort has been made to ensure accuracy and proper assembly department supervisor, there may be occasional errors that could affect the content or meaning of the described symptoms. Orders: Orders CA echo transthoracic complete Today I45.2 - Bifascicular block NM cardiolite stress test 3 Weeks R00.2 - Palpitations, R07.9 - Chest pain, unspecified ECG 7 day holter monitor Today R00.2 - Palpitations, R07.9 - Chest pain, unspecified CA lexiscan stress w aniceto 3 Months R07.9 - Chest pain, unspecified Coding Level of Care Code Tele New Pt Level 4 (55133) Complex EM visit Add On G2211 Diagnoses Chest pain R07.9 Palpitations R00.2 RBBB (right bundle branch block with left anterior fascicular block) I45.2 Hospital discharge follow-up Z09 Time Spent (min) 34 Comment Time spent in reviewing the chart, test results, assessment, counseling and docu mentation.
[2024-07-18 14:31] VITALS: BP 110/66; PULSE 81; BMI 28.3
--- OUTSIDE RECORDS SUMMARY | 2024-07-18 16:00 | XMS_ITS | Clinical Summary ---
Author Organization [facility] Address [address] [place] [address] Phone Care Team Providers Care Securities Underwriter Name Role Phone Tim Chambers MD Primary Care Provider [phone] Social History Tobacco Use Types Packs/Day Years [...] Associated Diagnosis Comments EXTERNAL NEUROLOGY REPORT Routine 07/07/2024 4:07 PM EDT from Last 3 Months Results * External Neurology Report (07/07/2024 4:07 PM EDT) us Historical Provider NEUROLOGY ORDERABLES Rachel jojo Result from Last 3 Months Insurance [employer] [facility] Care Teams Securities Underwriter Relationship Specialty Start Date End Date Tim Chambers MD [address] [place] [address] PCP - General 02/15/10
== END 2024-07-18 15:11 | disposition home or self-care (01) ==
LOC: HO.HCS 14:13
PROVIDERS: PCP Nurse Practitioner
DX: R07.9 Chest pain, unspecified (principal); R00.2 Palpitations; I45.2 Bifascicular block; Z09 Encounter for follow-up examination after completed treatment for conditions other than malignant neoplasm
CPT/HCPCS: 99214

== ENCOUNTER 2024-07-19 15:47 | Outpatient (REF) | payer OTHER, SELFPAY ==
--- NOTE | ~2024-07-19 | MR_ITS ---
EXAMINATION: MR BRAIN WITHOUT AND WITH CONTRAST CLINICAL INFORMATION: Syncopal event 07/03/2024. Word slurring and word finding trouble. Dizziness. Remote history of meningioma removal with surgery in the left frontal region March 2010. COMPARISON: 03/18/2023 MRI brain, and dating back to 03/20/2010. TECHNIQUE: Multiplanar, multisequence MRI of the brain was obtained before and after the intravenous administration of 6 mL Gadavist. Exam performed on a 1.5 Kristine Siemens high-field unit. FINDINGS: There is no diffusion restriction. There is no intracranial hemorrhage, acute infarction, mass effect, or edema. Ventricles, sulci, and cisterns are normal in size and configuration for patient age. 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 No shift of midline. No abnormal hemosiderin deposition is identified. Stable postoperative changes involving the left anterior frontal convexity, superior frontal gyrus, relating to resection of prior meningioma in this region. No recurrent nodular enhancement to suggest meningioma recurrence. Overlying left frontal craniotomy. There are a few scattered punctate and minimally confluent foci of white matter T2 hyperintensity in the periventricular, subcortical, and hemispheric deep white matter. These foci are nonspecific but most likely statistically relate to small vessel ischemic changes. No morphology or distribution specific to demyelinating disease. 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 Midline structures appear normally formed. There is a partial empty sella. Posterior fossa structures appear normal. Cerebellar tonsils are appropriately located. Major flow voids are preserved within the skull base. The globes and orbital contents demonstrate bilateral lens replacements. Paranasal sinuses are clear bilaterally. Nasal septum is midline without spur. There is a left mastoid effusion. The right mastoid and tympanic cavities are normally aerated. Moderate degenerative arthritis left TM joint. Extracranial soft tissues demonstrate no abnormalities. No suspicious bone marrow changes are evident. Mild hyperostosis frontalis internus. Atlantoaxial joint demonstrates mild to moderate degenerative arthrosis. MR/MR head/brain wo/w con IMPRESSION: 1. No intracranial hemorrhage, acute infarction, mass effect, or edema. No abnormal intra or extra-axial contrast enhancement. 2. Stable resection cavity left superior frontal gyrus related meningioma resection. No evidence of recurrence. Similar appearance of overlying left frontal craniotomy. 3. Mild changes of small vessel ischemia. 4. 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 5. There is a left mastoid effusion. No tympanic space involvement. 6. Additional ancillary findings as discussed. Electronically signed by: Fito Rubio MD 07/20/2024 10:23 AM EDT
--- OUTSIDE RECORDS SUMMARY | 2024-07-19 15:50 | XMS_ITS | Clinical Summary ---
Author Organization [facility] Address [address] [place] [address] Phone Care Team Providers Care Security And Compliance Project Manager Name Role Phone Tim Chambers MD Primary Care Provider [phone] Social History Tobacco Use Types Packs/Day Years [...] jojo Result from Last 3 Months Insurance [employer] [place] [address] Care Teams Security And Compliance Project Manager Relationship Specialty Start Date End Date Tim Chambers MD [address] [place] [address] PCP - General 02/15/10
[2024-07-19] MEDS: gadobutroL 7.5 ML VIAL IVPUSH (16:44)
== END 2024-07-19 15:48 | disposition home or self-care (01) ==
LOC: HO.MRI 15:47
PROVIDERS: PCP Nurse Practitioner; Visit Provider Psychiatry & Neurology Neurology
DX: M62.81 Muscle weakness (generalized) (principal); R55 Syncope and collapse
CPT/HCPCS: 70553; A9585

== ENCOUNTER → 2024-07-19 16:07 | Outpatient (BNV) | payer OTHER, SELFPAY | PROVIDERS: PCP Nurse Practitioner; Visit Provider Radiology Diagnostic Radiology | DX: G93.89 Other specified disorders of brain (principal); H74.8X2 Other specified disorders of left middle ear and mastoid | CPT/HCPCS: 70553 ==

== ENCOUNTER 2024-07-21 11:18 | Outpatient (REF) | payer OTHER, SELFPAY ==
--- OUTSIDE RECORDS SUMMARY | 2024-07-21 12:07 | XMS_ITS | Clinical Summary ---
Author Organization [facility] Address [address] [place] [address] Phone Care Team Providers Care Clinical Trial Specialist Name Role Phone Tim Chambers MD Primary Care Provider [phone] Social History Tobacco Use Types Packs/Day Years [...] jojo Result from Last 3 Months Insurance [employer] [facility] [place] [address] Care Teams Clinical Trial Specialist Relationship Specialty Start Date End Date Tim Chambers MD [address] [place] [address] PCP - General 02/15/10
[2024-07-21 13:17] LABS: MANUAL DIFF FLAG NO
[2024-07-21 13:31] LABS: Basophils Absolute Auto 0.1 X10*3/uL (0.0-0.2); Basophils Percent Auto 0.8 % (0-2); Eosinophils Absolute Auto 0.1 X10*3/uL (0.0-0.4); Eosinophils Percent Auto 1.4 % (0-4); Hematocrit 39.4 % (37.0-47.0); Hemoglobin 13.2 g/dl (12.0-16.0); Imm Gran Abs Auto 0.01 X10*3/uL (0.00-0.03); Imm Gran Pct Auto 0.2 % (0.0-0.4); Lymphocytes Absolute Auto 2.8 X10*3/uL (1.2-4.9); Lymphocytes Percent Auto 47.5 % (20-40); Mean Corpuscular HGB Conc 33.5 g/dl (31.0-35.0); Mean Corpuscular Hemoglobin 31.1 pg (27.0-33.0); Mean Corpuscular Volume 92.9 fL (80.0-98.0); Mean Platelet Volume 9.7 fL (9.4-12.3); Monocytes Absolute Auto 0.6 X10*3/uL (0.1-1.2); Monocytes Percent Auto 10.8 % (2-11); Neutrophils Absolute Auto 2.3 x10*3/uL (2.0-8.3); Neutrophils Percent Auto 39.3 % (45-73); Platelet Count 278 X10*3/uL (160-400); Red Blood Count 4.24 X10*6/uL (4.20-5.50); White Blood Count 5.9 X10*3/uL (4.8-10.8)
--- NOTE | 2024-07-21 13:40 | CA_ITS ---
Transthoracic Echocardiogram Patient (Last, First, Middle): Felicita Noble M Gender: Female Date of : 1950 Age: 73 Procedure Date: 07/21/2024 Procedure Type: Transthoracic Echocardiogram Location: OP Height: 152. cm Weight: 63.96 kg BSA: 1.61 m2 Heart Rate: bpm BP: 120 / 70 mmHg Rn Document Improvement: JORDAN Referring MD: Fredis Hammond QUARRY EQUIPMENT OPERATOR Symptoms: I45.2 - Bifascicular block Study Quality: Fair ECG Rhythm: Sinus Conclusions: - The left ventricular systolic function is normal. The calculated ejection fraction is 62% by biplane method. - No obvious valvular pathology seen on this study. Findings Left Ventricle Normal left ventricular cavity size. There is normal left ventricular wall thickness. The left ventricular systolic function is normal. The calculated ejection fraction is 62% by biplane method. There is no evidence of regional wall motion abnormalities. Diastolic function is normal for age. Right Ventricle Normal right ventricular cavity size and systolic function. Atria Both atria are normal in size. Aortic Valve There is a normal trileaflet aortic valve. There is no aortic valve stenosis. There is no aortic valve regurgitation. Mitral Valve The mitral valve appears normal. There is no mitral valve regurgitation. There is no mitral valve stenosis. Pulmonic Valve The pulmonic valve is likely normal. Tricuspid Valve There is mild tricuspid valve regurgitation. There is no evidence of pulmonary hypertension. Great Vessels The asc aorta is normal in size. Venous The inferior vena cava is normal in size and collapses greater than 50% with inspiration. Pericardium/Pleural There is a trivial pericardial effusion. Prior Study Comparison No prior study available for comparison. Recommendations, Care & Conclusions No obvious valvular pathology seen on this study. Measurements 2D Linear Measurements IVSd: 0.87 0.6-0.9/0.6-1.0 cm LVIDd: 4.69 3.9-5.3/4.2-5.9 cm LVIDd Index: 2.91 2.4-3.2/2.2-3.1 cm/m2 LVIDs: 3.22 2.0-3.6 cm LVPWd: 0.90 0.7-1.1 cm Ao Root: 3.10 2.1-3.5 cm LA Diam: 3.60 2.7-3.8/3.0-4.0 cm LAIDs Index: 2.24 1.5-2.3 cm/m2 LV Mass: 173.73 67-162/88-224 g LV Mass Index: 107.91 43-95/49-115 g/m2 LVOT Diam: 2.20 3.0+(-)1.3 cm 2D Systolic Function EF 4C: 64.30 >55% EF 2C: 59.00 >55% EF BiP: 61.80 >55% Mitral Valve MV Pk E: 0.56 MV PK A: 0.92 MV Decel Time: 263.00 E/A: 0.60 E'Lateral: 6.20 E'Medial: 5.22 E/E' Med: 10.70 E/E' Lat: 9.00 PHT: 77.00 MVA PHT: 2.86 Decel [place]: 2.12 Aortic Valve AoV Pk Ozzie: 0.99 AoV Mn Ozzie: 0.74 AoV VTI: 0.24 AoV Pk Grad: 4.00 Aov Mn Grad: 2.00 LOVE Cont.VTI: 2.82 LVOT LVOT Pk Ozzie: 0.85 LVOT Mn Ozzie: 0.57 LVOT VTI: 0.18 LVOT Pk Grad: 3.00 LVOT Mn Grad: 1.00 LVOT Diam: 2.20 LVOT Area: 3.80 Diastolic Function MV Pk E: 0.56 MV Pk A: 0.92 E/A: 0.60 E'Medial: 5.22 E/E' Med: 10.70 E' Laterial: 6.20 E/E' Lat: 9.00 Right Ventricle TAPSE (mm): 23.00 TVS' Ozzie: 13.00 Tricuspid Valve TR Pk Ozzie: 1.91 TR Pk Grad: 15.00 RA Press: 3.00 RVSP: 18.00 Great Vessels Aorta Ao Root-2D: 3.10 2.0-3.7 cm Ao Asc: 3.30 2.1-3.4 cm Ao Arch: 3.10 Pulmonary Valve PV Pk Ozzie: 0.98 Peak PV Grad: 4.00 Updated in Other Vendor System with Status of Final Arnoldo Swartz MD electronically signed on 07/24/2024 11:10:56 AM with status of Final
[2024-07-21 14:15] LABS: Erythrocyte Sedimentation Rate 7 MM/HR (0-20)
[2024-07-21 14:20] LABS: Alanine Aminotransferase 21 U/L (0-31); Albumin Level 4.1 g/dL (3.5-5.0); Alkaline Phosphatase 62 U/L (39-117); Anion Gap 11 (12-20); Aspartate Amino Transferase 22 U/L (5-31); Bilirubin Total 0.6 mg/dL (0.0-1.0); Blood Urea Nitrogen 18 mg/dL (9-16); C Reactive Protein < 0.10 mg/dL (< or = 0.50); Calcium 9.7 mg/dL (8.4-10.2); Carbon Dioxide 27 mmol/L (22-29); Chloride 108 mmol/L (96-108); Estimated Glomerular Filt Rate > 60; Glucose Random 104 mg/dL (60-115); Potassium 3.7 mmol/L (3.3-5.1); Sodium 142 mmol/L (135-145); Total Protein 6.8 g/dL (6.5-8.0)
== END 2024-07-21 11:19 | disposition home or self-care (01) ==
LOC: HO.HMGCLDS 11:18
PROVIDERS: PCP Nurse Practitioner; Visit Provider Student in an Organized Health Care Education/Training Program
DX: I45.2 Bifascicular block (principal); M05.80 Other rheumatoid arthritis with rheumatoid factor of unspecified site
CPT/HCPCS: 36415; 80053; 85025; 85652; 86140; 93242; 93306

== ENCOUNTER → 2024-07-21 13:35 | Outpatient (REF) | payer OTHER, SELFPAY ==
--- NOTE | 2024-07-21 14:24 | HM_ITS ---
* Total monitoring time 6 days and 13 hours. * Underlying rhythm is sinus with an average rate of 80/Min. * Rare supraventricular ectopy. Very brief runs. * Rare ventricular ectopy. * No significant pauses or high-grade AV blocks. * Chest tightness/pressure in patient diary associated with sinus rhythm, supraventricular/ventricular ectopy MTDD
== END ==
LOC: HO.CARD 13:35
PROVIDERS: PCP Nurse Practitioner
DX: R07.9 Chest pain, unspecified (principal); R00.2 Palpitations
CPT/HCPCS: 93242

== ENCOUNTER → 2024-07-21 13:40 | Outpatient (BNV) | payer OTHER, SELFPAY | PROVIDERS: PCP Nurse Practitioner; Visit Provider Internal Medicine | DX: I31.39 Other pericardial effusion (noninflammatory) (principal) | CPT/HCPCS: 93306 ==

== ENCOUNTER → 2024-07-26 08:07 | Outpatient (REF) | payer OTHER, SELFPAY ==
--- NOTE | ~2024-07-26 | NM_ITS ---
Lexiscan Myocardial perfusion study Indication: Chest pain to evaluate for myocardial ischemia Technique: The patient was brought in for a Lexiscan perfusion study on July 26, 2024 and was injected 0.4 mg of Lexiscan intravenously. Within a minute of this injection 25 mCi of sestamibi was given intravenously. Images were obtained using the SPECT gamma camera interlaced with the gating device. Images were obtained in supine position. Resting perfusion study was performed on July 27, 2024. Patient was administered 25 mCi of sestamibi intravenously at rest. Images were then obtained in supine position. Images obtained without without CT attenuation. Total DLP 67 mGy-cm Images were processed with the software and compared side to side in short axis, horizontal long axis and vertical long axis views. Findings: Both stress and rest perfusion study was somewhat limited due to subdiaphragmatic uptake interfering with myocardial uptake. The stress perfusion study showed nonattenuated images show normal uptake of radiotracer in all segments of the LV myocardium. Attenuated corrected images are suboptimal due to subdiaphragmatic uptake. There is suggestion LEFT ventricular hypertrophy. The gated study shows normal LV systolic function with calculated LVEF of 68%. LV cavity is normal in size. The gated study shows normal systolic wall thickening and contraction of segments. Resting study shows no change in perfusion pattern compared to stress perfusion study. Gating at rest reveals normal systolic wall motion with ejection fraction at greater than 60%. The findings are consistent with normal myocardial perfusion. NM/NM cardiolite stress test Impression: 1. Myocardial perfusion imaging study shows normal myocardial perfusion 2. Gated LVEF is 68% 3. Transient ischemic dilatation not present Nondiagnostic changes on EKG. Electronically signed by: Saturnino Nazario MD 07/27/2024 04:28 PM EDT
--- OUTSIDE RECORDS SUMMARY | 2024-07-26 08:11 | XMS_ITS | Clinical Summary ---
Author Organization [facility] Address [address] [place] [address] Phone Care Team Providers Care Cotton Machine Operator Name Role Phone Tim Chambers MD Primary Care Provider [phone] Social History Tobacco Use Types Packs/Day Years [...] jojo Result from Last 3 Months Insurance [employer] [facility] Care Teams Cotton Machine Operator Relationship Specialty Start Date End Date Tim Chambers MD [address] [place] [address] PCP - General 02/15/10
--- NOTE | 2024-07-26 08:14 | CA_ITS ---
Acquisition Time: 2024-07-26 08:15:41 Total Exercise Time: 00:02:00 Test Indications: CP ABN EKG,Palpitations,Syncope Medications: METHOTREXATE Protocol: LEXISCAN Max HR: 115 BPM 77% of Pred: 149 BPM Max BP: 128/78 mmHG Max Work Load: 1.0 METS Pharmacological stress test with Lexiscan while pt swings her legs in the chair, with reports of dizziness, headache and nausea, with isolated PAC, with normotensive response to injection. Nondiagnostic EKG for ischemia. In recovery, pt treated with IVP Aminophylline 75 mg to reverse Lexiscan after which pt feeling back to baseline. Nuclear images pending. Test reviewed with Dr. Nazario. Referred By: Fredis Hammond Electronically Signed By: Fredis Hammond
== END ==
LOC: HO.CARD 08:07
PROVIDERS: PCP Nurse Practitioner
DX: R07.9 Chest pain, unspecified (principal); R00.2 Palpitations
CPT/HCPCS: 78452; 93017; A9500; J0280; J2785

== ENCOUNTER → 2024-07-26 08:14 | Outpatient (BNV) | payer OTHER, SELFPAY | PROVIDERS: PCP Nurse Practitioner | DX: I49.1 Atrial premature depolarization (principal); R42 Dizziness and giddiness | CPT/HCPCS: 78452; 93016; 93018 ==

== ENCOUNTER 2024-07-31 11:33 | Outpatient (AMB) | payer OTHER, SELFPAY ==
--- NOTE | 2024-07-31 11:37 | A.OFFVIS_ITS ---
Vital Signs 07/31/24 11:40 Height 5 ft Weight 144 lb 9.972 oz BMI 28.2 BP 120/82 Blood Pressure Location Lt brachial Position Sitting Pulse 86 Pulse Source Pulse Oximeter Pulse Oximetry (%) 98 Oxygen Delivery Method Room Air Intake Visit Reasons: RA Intake Note: Patient presents for RA follow up. Allergies sulfasalazine Allergy (Intermediate, Verified 07/31/24 11:40) Hives morphine [Morphine] Allergy (Mild, Verified 07/31/24 11:40) HYPOTENSION levofloxacin Allergy (Verified 07/31/24 11:40) Unknown hydrocodone [From Vicodin] Adverse Reaction (Mild, Verified 07/31/24 11:40) NAUSEA & VOMITING indomethacin [From Indocin] Adverse Reaction (Mild, Verified 07/31/24 11:40) MIGRAINE HEADACHE Penicillins Adverse Reaction (Mild, Verified 07/31/24 11:40) TACHYACRDIA prednisolone Adverse Reaction (Verified 07/31/24 11:40) Hives Medication List - Last Reconciled 07/31/24 by Lara Rey MD folic acid 1 mg PO DAILY methotrexate sodium 7.5 mg (3 x 2.5 mg) PO QWEEK 90 days HPI Comments Details: Patient is a 73-year-old female with history of a brain tumor status post resection, polyarticular osteoarthritis involving hands and knees, seropositive nonerosive rheumatoid arthritis (RF positive, 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 Interval History: Last seen 03/28/2024 with me. At that time she was doing well with no morning stiffness or swelling to her hands, wrists, feet or knees. Had recently gotten Euflexxa series for her right knee with the last shot 01/2024 Patient recently fell at home 06/2024 and was subsequently found to have a UTI and right bundle-branch block. Recommended that she hold her methotrexate while taking antibiotics. Currently, Not taking methotrexate Denies prolonged AM stiffness or joint swelling Still has some aches and pains on the right side that she fell on Currently undergoing work up for her thyroid Rheumatologic History: Onset 2021. RF pos CCP neg 10/2021 sulfasalazine started skin rash so it was stopped Methotrexate started 02/2022 Current Rheumatology Medication(s): Methotrexate 7.5 mg weekly (not taking) Folic acid 1 mg daily (not taking) [facility] Medical History Diverticulitis No known health problems Surgical History History of colon resection Family History Mother Heart disease Social History Household Members: Spouse Housing: House Are you a primary director career to a significant other at home: No Do you presently have visiting nurse or other home services: No 75 years or older and lives alone: No Alcohol intake: never Patient Tobacco Use Status: Never used Tobacco e-Cigarette/Vaping Use: Never Used service: No Current occupational status: retired Review of Systems Const Details: Review of Systems Constitutional: Denies fever, chills, weight loss ENT: Denies vision changes, eye pain or eye redness, dental caries, dry mouth GI: Denies nausea, vomiting, diarrhea, abdominal pain, change in BM Pulm: Denies SOB, CALVO, hemoptysis, wheezing Cards: Denies chest pain, palpitations Skin: Denies Raynaud's, rash, nail changes, photosensitivity, TIRE SETTER: Denies headaches, weakness, paresthesias, recurrent falls MSK: as per HPI All other systems reviewed and are unremarkable except noted above Physical Exam Vital Signs: Last Vital Signs Pulse 86 07/31/24 11:40 BP 120/82 07/31/24 11:40 Pulse Ox 98 07/31/24 11:40 Oxygen Delivery Method Room Air 07/31/24 11:40 BMI result Body Mass Index 28.2 Vital signs reviewed Physical Examination Patient well appearing and in no apparent painful distress Constitutional Mucous membranes pink and moist patient alert and cooperative HEENT Conjunctiva and sclera clear. ?No lymphadenopathy. ?Normal dentition. Respiratory System Normal respiratory effort and able to speak in complete sentences. ?Clear to auscultation bilaterally. ?No crackles, rales, rhonchi, wheezes heard. Cardiac System Regular rate and rhythm. ?S1 and S2 heard no murmurs. ?Radial pulses intact bilaterally MSK No deformity, swelling, abnormalities noted to bilateral hands. ?No evidence of synovitis. ?Able to move all joints with full range of motion, without limitation. Heberden's nodes noted. Full ROM to bilateral knees with crepitations TTP of the pes anserine bursa bilaterally TTP of the right subacromial bursa Results Reviewed Results Reviewed: Laboratory Tests 07/21/24 11:21 WBC 5.9 RBC 4.24 Hgb 13.2 Hct 39.4 Plt Count 278 ESR 7 Sodium 142 Potassium 3.7 Chloride 108 Carbon Dioxide 27 BUN 18 H Creatinine 0.72 AST 22 ALT 21 Alkaline Phosphatase 62 C-Reactive Protein < 0.10 Laboratory Tests 09/22/21 06/01/24 10:05 14:22 Cycl Citrul Peptide IgG <16 SS-A/Ro Antibody <1.0 NEG SS-B/La Antibody <1.0 NEG Thyroglobulin Antibody <1 Assessment & Plan Assessment & Plan (1) Seropositive erosive rheumatoid arthritis: Comment: Onset 2021. RF pos CCP neg ulfasalazine started skin rash so it was stopped no additional treatment at that point Code(s): M05.80 - Other rheumatoid arthritis with rheumatoid factor of unspecified site Category: Medical Plan: #Seropositive Non Erosive RA Patient is a 73-year-old female with seropositive nonerosive rheumatoid arthritis here today for follow up. Not on methotrexate currently due to antibiotic use however being on immunosuppression her joints do not have any evidence of synovitis. Given that she is on such a low dose of methotrexate in the 1st place I think it warrants us trialing her off immunosuppression entirely. Plan - Stop Mtx and folic acid - RTC 4 months - Labs before visit: CBC, CMP, ESR, CRP (2) Osteoarthritis of knees, bilateral: Code(s): M17.0 - Bilateral primary osteoarthritis of knee Category: Medical Qualifiers: Osteoarthritis type: primary Qualified Code(s): M17.0 - Bilateral primary osteoarthritis of knee Plan: #Bilateral Knee OA Continue follow-up with Orthopedics. Plan I spent 30 minutes reviewing the record and labs, seeing the patient, discussing the treatment plan and documenting in the medical record Coding Level of Care Code Est Pt Level 4 (63589) Complex EM visit Add On G2211 Diagnoses Seropositive erosive rheumatoid arthritis M05.80 Primary osteoarthritis of both knees M17.0 Osteoarthritis type: primary
[2024-07-31 11:40] VITALS: BP 120/82; PULSE 86; O2SAT 98; BMI 28.2
--- OUTSIDE RECORDS SUMMARY | 2024-07-31 13:07 | XMS_ITS | Clinical Summary ---
Author Organization [facility] Address [address] [place] [address] Phone Care Team Providers Care Instructional Technologist Name Role Phone Tim Chambers MD Primary Care Provider [phone] Social History Tobacco Use Types Packs/Day Years [...] jojo Result from Last 3 Months Insurance [employer] [facility] [place] [id number] Care Teams Instructional Technologist Relationship Specialty Start Date End Date Tim Chambers MD [address] [place] [address] PCP - General 02/15/10
== END 2024-07-31 12:21 | disposition home or self-care (01) ==
LOC: HO.RHE 11:33
PROVIDERS: PCP Nurse Practitioner; Visit Provider Student in an Organized Health Care Education/Training Program
DX: M05.80 Other rheumatoid arthritis with rheumatoid factor of unspecified site (principal); M17.0 Bilateral primary osteoarthritis of knee
CPT/HCPCS: 99214

== ENCOUNTER 2024-08-17 13:36 | Outpatient (AMB) | payer OTHER, SELFPAY ==
--- OUTSIDE RECORDS SUMMARY | 2024-03-19 20:00 | XMS_ITS | Continuity of Care Document ---
Author Organization [facility] Address [address] [place] [address] Phone Care Team Providers Care Claims Adjuster Name Role Phone Fito Short Unavailable Unavailable [...] Providers Copied on Encounter [facility], [address], [place], [id number], [place] tel:[phone] [place] No Information 5 Sherie Payton. [address] [place] [address], [address], [place], [id number], [place]. tel:[phone] Referring Provider: Collins Gipson, [address], [address], [place], [address]. tel:[phone] Office/Outpt E&M Established 15 Mins- [place] & [place] [facility], [address] [place] [address] [address], [place], [id number], [place] tel:[phone] CVR - [facility] Localized edemaVenous insufficiency (chronic) (peripheral) Nov- 4 Jorge SCHRADER RVT, MARJORIE Irvin. [address] [place] [address] 302, [place], [id number], [place]. tel:[phone] Referring Provider: Collins Gipson, [address], [address], [place], [address]. tel:[phone] [facility], [address] [place] [address] Dr [address], [place], [id number], [place] tel:[phone] CVR - [facility] Varicose veins of right lower extremity with pain Nov- 4 Jorge SCHRADER RVT, MARJORIE Irvin. [address] [place] [address] [address], [place], [id number], [place]. tel:[phone] Referring Provider: Collins Gipson, [address], [address], [place], [address]. tel:[phone] [facility], [address] [place] [address] Dr [address], [id number], [place] tel:[phone] [place] Encounter for follow-up examination after completed treatment for conditions other than malignant nePain in right leg Oct 4 Jorge SCHRADER RVT, MARJORIE Irvin. [address] [place] [address], [place], [id number], [place]. tel:[phone] Referring Provider: Collins Gipson, [address], [address], [place], [address]. tel:[phone] [place] [facility], [address] [place] [address] Dr [address] 1000[place], [id number], [place] tel:[phone] [place] Varicose veins of right lower extremity with other complications 4 Jorge SCHRADER RVT, MARJORIE Irvin. [address] [place] [address], [place], [id number], [place]. tel:[phone] Referring Provider: Collins Gipson, [address], [address], [place], [address]. tel:[phone] [place] [facility], [address] [place] [address] Dr [address], [place], [id number], [place] tel:[phone] CV[place] - [place] No Information 4 Jorge SCHRADER, JOHN, MARJORIE Irvin. [address] [place] [address], [place], [id number], [place]. tel:[phone] Offic/outpt E&m Estab 5 Min Trial- Telemedicine CT & [place] [facility], [address] [place] [address] Dr [address] 1000[place], [id number], [place] tel:[phone] [place] - [place] Lymphedema, not elsewhere classifiedVen ous insufficiency (chronic) (peripheral) 4 Sherie Payton. [address] [place] [address] [address], [place], [id number], [place]. tel:[phone] Referring Provider: Collins Gipson, [address], [address], [place], [address]. tel:[phone] Offic Cons New/estab Mod 40 Mi- CT & [place] [facility], [address] [place] [address] [address], [place], [id number], tel:[phone] CV[place] - [place] - [place] Varicose veins of right lower extremity with other complications Pain in right lower legPain in left lower legPain in right legLymphedema , not elsewhere classifiedPai n in left legHereditary lymphedemaLoc alized edema 4 Jorge SCHRADER RVT, MARJORIE Irvin. [address] [place] [address], [address], [place], [id number], [place]. tel:[phone] Referring Provider: Collins Gipson, [address], [address], [place], [address]. tel:[phone] [place] [facility], [address] [place] [address] [address], [place], [id number], [place] tel:[phone] CV[place] - [place] Varicose veins of bilateral lower extremities with pain 4 Jorge SCHRADER RVT, MARJORIE Irvin. [address] [place] [address], [address], [place], [id number], [place]. tel:[phone] Referring Provider: Collins Gipson, [address], [address], [place], [address]. tel:[phone] [place] [facility], [address] [place] [address] Dr [address], [place], [id number], [place] tel:[phone] [place] Pain in right leg June- 4 Jorge SCHRADER RVT, MARJORIE Irvin. [address] [place] [address], [address], [place], [id number], [place]. tel:[phone] Referring Provider: Collins Gipson, [address], [address], [place], [address]. tel:[phone] Family History Family Member Type Diagnosis Age At Onset No Information Payers Payer name Insurance type Covered alliance party ID Authoriza tion(s) No Information Social History [...] provided Related to Lymphedema, not elsewhere classified Pre and post instruc tions reviewed and provided Related to Varicose veins of right lower extremity with other complications Patient education booklet given Related to Varicose veins of right lower extremity with other complications Lifestyle education Related to B jozef mass index (BMI) 26.0-26.9, adult Giving Encouragement to exercise Related to Body mass index (BMI) 26.0-26.9, adult Diet education Related to Body mass index (BMI) 26.0-26.9, adult Assessments Type Assessment Date No Information Patient Care Teams Name Effective Dates (start - stop) Status Members No Information
--- OUTSIDE RECORDS SUMMARY | 2024-08-17 13:45 | XMS_ITS | Clinical Summary ---
Author Organization [facility] Address [address] [place] [address] Phone Care Team Providers Care Senior Search Marketing Analyst Name Role Phone Tim Chambers MD Primary Care Provider [phone] Social History Tobacco Use Types Packs/Day Years Used Date Smoking Tobacco: Never Assessed Comments Unknown Sex and Gender Information Value Date Recorded Sex Assigned at Not on file Legal Sex Female 8:39 PM EST Gender Identity Not on file Sexual Orientation Not on file Plan of Treatment Health Maintenance Due Date Last Done Comments Breast Cancer Screening 1950 COVID-19 Vaccine (2 - Micky risk series) 05/25/2020 04/27/2020 DTaP,Tdap,and Td Vaccines (2 - Td or Tdap) 11/16/2022 11/16/2012 Colorectal Cancer Screening: Colonoscopy 03/12/2023 Depression Screening 03/12/2023 Falls Risk Assessment 03/12/2023 Osteoporosis Screening (Bone Density Screening) 03/12/2023 Social Influencers of Health Screening 03/12/2023 Influenza Vaccine (Season Ended) 2024 11/02/2022, 12/15/2021, 10/31/2019, Additional history exists Cholesterol Screening (Lipid Panel) 03/27/2027 03/27/2022 Pneumococcal Vaccine: 50+ Years Completed 04/28/2017, 04/03/2015, 10/28/2011 Hepatitis C Screening Completed 09/22/2019 Zoster Vaccines Completed 01/03/2020, 09/22/2019 RSV Immunization Adult Patients Completed 02/09/2023 HIB Vaccines Aged Out No longer eligi [...] to complete this topic RSV Immunization Patients Under 20 months Aged Out No longer eligible based on patient's age to complete this topic Varicella Vaccines Aged Out No longer eligible based on patient's age to complete this topic Procedures Procedure Name Priority Date/Time Associated Diagnosis Comments EXTERNAL NEUROLOGY REPORT Routine 07/07/2024 4:07 PM EDT from Last 3 Months Results * External Neurology Report (07/07/2024 4:07 PM EDT) us Historical Provider NEUROLOGY ORDERABLES Rachel l Result from Last 3 Months Insurance [facility] Care Teams Senior Search Marketing Analyst Relationship Specialty Start Date End Date Tim Chambers MD [address] [place] [address] PCP - General 02/15/10
--- NOTE | 2024-08-17 13:55 | MHC.OFFVIS ---
Vital Signs 08/17/24 13:57 Height 5 ft Weight 143 lb BMI 27.9 BP 120/78 Blood Pressure Location Lt brachial Position Sitting Pulse 78 Pulse Source Pulse Oximeter Intake Visit Reasons: 4 wk s/p; dylan/ holter/ echo Allergies sulfasalazine Allergy (Intermediate, Verified 07/31/24 11:40) Hives morphine (Morphine) Allergy (Mild, Verified 07/31/24 11:40) HYPOTENSION levofloxacin Allergy (Verified 07/31/24 11:40) Unknown hydrocodone (From Vicodin) Adverse Reaction (Mild, Verified 07/31/24 11:40) NAUSEA & VOMITING indomethacin (From Indocin) Adverse Reaction (Mild, Verified 07/31/24 11:40) MIGRAINE HEADACHE Penicillins Adverse Reaction (Mild, Verified 07/31/24 11:40) TACHYACRDIA prednisolone Adverse Reaction (Verified 07/31/24 11:40) Hives HPI Comments Details: This is a 74-year-old female patient coming in for a follow-up visit, accompanied by her . Patient was previously seen in the office for bifascicular block which was new on her EKG with reports of palpitations and chest discomfort. Subsequently, patient underwent an echo study, Holter study, and a myocardial perfusion study. Today, patient reports feeling well overall and denies any cardiac symptoms of exertional chest pain, shortness of breath, palpitations, dizziness, orthopnea, PND, leg edema, presyncope, or syncope. Patient states that she has going to be seeing Neurology for the dizziness in the next couple of weeks, as patient had a history of brain tumor status post surgical resection in the early 2009. [facility] Medical History Diverticulitis No known health problems Surgical History History of colon resection Family History Mother Heart disease Social History Household Members: Spouse Housing: House Are you a primary clinical manager home care to a significant other at home: No Do you presently have visiting nurse or other home services: No 75 years or older and lives alone: No Alcohol intake: never Patient Tobacco Use Status: Never used Tobacco e-Cigarette/Vaping Use: Never Used service: No Current occupational status: retired Review of Systems Const Denies weakness ENT Denies dizziness Card Denies chest pain, Denies chest pain with activity, Denies syncope, Denies rapid heart rate, Denies pedal edema, Denies edema, Denies leg edema, Denies lightheadedness, Denies palpitations, Denies dyspnea, Denies dyspnea on exertion and Denies orthopnea Resp Denies cough, Denies dyspnea and Denies dyspnea on exertion GI Denies hematochezia and Denies change in stool character Musc Denies abnormal gait, Denies muscle cramps, Denies muscle weakness, Denies numbness, Denies radiating pain into limb and Denies tingling Neuro Denies abnormal gait, Denies dizziness, Denies syncope, Denies numbness, Denies tingling and Denies weakness Endo Denies palpitations Physical Exam Vital Signs: Last Vital Signs Pulse 78 08/17/24 13:57 BP 140/78 H 08/17/24 13:57 BMI result Body Mass Index 27.9 Const General: cooperative, healthy appearing, comfortable and no acute distress Orientation/consciousness: patient oriented x3 HEENT Head: Yes normal to inspection Neck Neck: Yes normal visual inspection, Yes trachea midline and Yes supple Chest Chest palpation & inspection: normal inspection of the chest Resp Effort & Inspection: normal respiratory effort Auscultation: clear to auscultation bilaterally, no crackles, no rales, no rhonchi and no wheezes Cardio Jugular venous distension: no JVD Palpation: normal PMI Rate: regular rate Rhythm: regular rhythm Heart sounds: S1 normal heart sound present, S2 normal heart sound present, no click, no gallops, no murmurs and no rubs Peripheral pulses: Peripheral pulses 2+ throughout GI Inspection: Yes normal to inspection Palpation (GI): Soft to palpation Auscultation: normal bowel sounds Skin General skin exam: no rashes or lesions noted Neuro General: patient oriented x3 Extrem General: Yes normal to inspection, No no pedal edema and No calf tenderness Psych Appearance: grossly normal Mental Status: mental status grossly normal Speech and movement: Normal speech and movement present Assessment & Plan Assessment & Plan (1) RBBB (right bundle branch block with left anterior fascicular block): Code(s): I45.2 - Bifascicular block Category: Medical Plan: 07/21/2024-Holter study showed underlying normal sinus rhythm with an average heart rate of 80 beats per minute, rare supraventricular ectopy and rare ventricular ectopy. 07/21/2024-echo study showed a normal LV systolic function with an ejection fraction at 62%, with no wall motion abnormality or valvular pathology. 07/26/2024-patient underwent a myocardial perfusion study which showed normal perfusion. Given the reassuring findings from above testings and resolution of her symptoms, no further testing is indicated at this time. Patient's blood pressure is within normal limits. With a notable history of brain tumor, patient we will be seeing her neurology for the dizziness. Although, patient does report resolution of her dizziness. Advised heart healthy diet, regular exercise, and management of vascular risk factors. Patient will follow up in the office on an as-needed basis. In the interim, patient will call the office with any concerns or change in symptoms. This note was generated using voice recognition software. While every effort has been made to ensure accuracy and proper international marketing manager, there may be occasional errors that could affect the content or meaning of the described symptoms. Coding Level of Care Code Est Pt Level 3 (47364) Complex EM visit Add On G2211 Diagnoses RBBB (right bundle branch block with left anterior fascicular block) I45.2 Time Spent (min) 29 Comment Time spent in reviewing the chart, test results, assessment, counseling and documentation.
[2024-08-17 13:57] VITALS: BP 120/78; PULSE 78; BMI 27.9
== END 2024-08-17 14:20 | disposition home or self-care (01) ==
LOC: HO.HCS 13:37
PROVIDERS: PCP Nurse Practitioner
DX: I45.2 Bifascicular block (principal)
CPT/HCPCS: 99213

== ENCOUNTER 2024-10-18 11:44 | Outpatient (AMB) | payer OTHER, SELFPAY ==
--- OUTSIDE RECORDS SUMMARY | 2024-03-19 20:00 | XMS_ITS | Continuity of Care Document ---
Author Organization [facility] Address [address] [place] [address] Phone Care Team Providers Care Surveillance Analyst Name Role Phone Fito Short Unavailable Unavailable Allergies, Adverse Reactions, Alerts Substance Reaction Status Criticality No Known Allergies Active No Inform ation Medications Medication Instructions Dosage Effective Dates (start - stop) Status Comments methotrexate sodium 2.5 mg tablet - Active Procedures Procedure Date Office/Outpt E&M Established 15 Mins- CT & [place] Duplex Scan-extrem Veins; Uni/ CT & [place] O Duplex Scan-extrem Veins; Uni/ CT & [place] S Ultrason Guidan Needle Bx-rad- CT & [place] A Inj Sclerosing Solution; Sngl- CT & [place] A Offic/outpt E&m Estab 5 Min Trial- Telem edicine CT & [place] Offic Cons New/estab Mod 40 Mi- CT & [place] Duplex Scan-extrem Veins; Comp- CT & [place] Duplex Scan-extrem Veins; Uni/ CT & [place] M Advance Directives Directive Yes / No Effective Date File Name No Information Encounters Encounter Description Practice Location Reason(s) For Visit Diagnoses Date Provider Providers Copied on Encounter [facility], [address], [place], [id number], [place] tel:[phone] CV[place] - [place] - [place] No Information 5 Sherie Payton. [address] [place] [address], [address], [place], [id number], [place]. tel:[phone] Referring Provider: Collins Gipson, [address], [address], [place], [address]. tel:[phone] Office/Outpt E&M Established 15 Mins- CT & [place] [facility], [address] [place] [address] [address], [place], [id number], [place] tel:[phone] CVR - [facility] Localized edemaVenous insufficiency (chronic) (peripheral) Nov- 4 Jorge SCHRADER RVT, MARJORIE Irvin. [address] [place] [address] 302, [place], [id number], [place]. tel:[phone] Referring Provider: Collins Gipson, [address], [address], [place], [address]. tel:[phone] [facility], [address] [place] [address] Dr [address], [place], [id number], [place] tel:[phone] CVR - [facility] Varicose veins of right lower extremity with pain Nov- 4 Jorge SCHRADER RVT, MARJORIE Irvin. [address] [place] [address] 302, [place], [id number], [place]. tel:[phone] Referring Provider: Collins Gipson, [address], [address], [place], [address]. tel:[phone] [facility], [address] [place] [address] Dr [address], [id number], [place] tel:[phone] [place] - [place] Encounter for follow-up examination after completed treatment for conditions other than malignant nePain in right leg Oct 4 Jorge SCHRADER RVT, MARJORIE Irvin. [address] [place] [address], [place], [id number], [place]. tel:[phone] Referring Provider: Collins Gipson, [address], [address], [place], [address]. tel:[phone] [place] [facility], [address] [place] [address] Dr [address], [id number], [place] tel:[phone] [place] Varicose veins of right lower extremity with other complications 4 Jorge SCHRADER RVT, MARJORIE Irvin. [address] [place] [address], [place], [id number], [place]. tel:[phone] Referring Provider: Collins Gipson, [address], [address], [place], [address]. tel:[phone] [place] [facility], [address] [place] [address] Dr [address], [place], [id number], [place] tel:[phone] CV[place] - [place] No Information 4 Jorge SCHRADER, JOHN, MARJORIE Irvin. [address] [place] [address], [place], [id number], [place]. tel:[phone] Offic/outpt E&m Estab 5 Min Trial- Telemedicine CT & [place] [facility], [address] [place] [address] Dr [address], [id number], [place] tel:[phone] [facility] - [place] Lymphedema, not elsewhere classifiedVen ous insufficiency (chronic) (peripheral) 4 Sherie Payton. [address] [place] [address] [address], [place], [id number], [place]. tel:[phone] Referring Provider: Collins Gipson, [address], [address], [place], [address]. tel:[phone] Offic Cons New/estab Mod 40 Mi- CT & [place] [facility], [address] [place] [address] [address], [place], [id number], tel:[phone] CV[place] - [place] - [place] Varicose veins of right lower extremity with other complications Pain in right lower legPain in left lower legPain in right legLymphedema , not elsewhere classifiedPai n in left legHereditary lymphedemaLoc alized edema 4 Jorge SCHRADER RVT, MARJORIE Irvin. [address] [place] [address], [address], [place], [id number], [place]. tel:[phone] Referring Provider: Collins Gipson, [address], [address], [place], [address]. tel:[phone] [place] [facility], [address] [place] [address] [address], [place], [id number], [place] tel:[phone] [place] - [place] Varicose veins of bilateral lower extremities with pain 4 Jorge SCHRADER RVT, MARJORIE Irvin. [address] [place] [address], [address], [place], [id number], [place]. tel:[phone] Referring Provider: Collins Gipson, [address], [address], [place], [address]. tel:[phone] [place] [facility], [address] [place] [address] Dr [address], [place], [id number], [place] tel:[phone] [place] Pain in right leg June- 4 Jorge SCHRADER RVT, MARJORIE Irvin. [address] [place] [address], [address], [place], [id number], [place]. tel:[phone] Referring Provider: Collins Gipson, [address], [address], [place], [address]. tel:[phone] Family History Family Member Type Diagnosis Age At Onset No Information Payers Payer name Insurance type Covered democrat ID Authoriza tion(s) No Information Social History Type Description Quantity Date Captured Comments Sex Female Smoking Status No Information Chief Complaint And Reason For Visit No Information Reason For Referral Reason For Referral No Information Plan Of Treatment Date Type Action Status Goal Tobacco cessation counseling completed Goal Diet education completed Referral Ordered: Weight management: Referral to physician timeframe: 3 Months (related to Body mass index (BMI) 26.0-26.9, adult) ordered History Of Present Illness Encounter Date Complaint History Of Prese nt Illness No Information Functional Status Date Functional Assessmen t No Information Instructions Date Instruction Additional Infor epifanio Patient education booklet given Related to Lymphedema, not elsewhere classified Pre and post instruc tions reviewed and provided Related to Lymphedema, not elsewhere classified Diet education Related to Body mass index (BMI) 26.0-26.9, adult Giving Encouragement to exercise Related to Body mass index (BMI) 26.0-26.9, adult Lifestyle education Related to B jozef mass index (BMI) 26.0-26.9, adult Patient education booklet given Related to Varicose veins of right lower extremity with other complications Pre and post instruc tions reviewed and provided Related to Varicose veins of right lower extremity with other complications Assessments Type Assessment Date No Information Patient Care Teams Name Effective Dates (start - stop) Status Members No Information
--- OUTSIDE RECORDS SUMMARY | 2024-10-18 14:07 | XMS_ITS | Encounter Summary ---
Author Organization [facility] Address [address] [place] [id number] Phone Care Team Providers Care Sponge Maker Name Role Phone Rosa Newman SWEEPER DRIVER Unavailable [phone] Collins Pizano SWEEPER DRIVER Primary Care Provider [phone] Encounter Details Date Type Department Care Team (Latest Contact Info) Description 06/01/2024 Transcribe Orders Virtual Department [address] [place] [id number] Manan Durham MD [address] [place] [address], [address] [place] [address] [email or web address] Thyroid nodule (Primary Dx) Social History Tobacco Use Types Packs/Day Years Used Date Smoking Tobacco: Former Cigarettes 0.5 7.9 0 03/28/1960 - 02/16/1968 Smokeless Tobacco: Never Alcohol Use Standard Drinks/Week Comments No 0 (1 standard drink = 0.6 oz pur e alcohol) Child or Family Care Answer Date Record ed Do you have problems with on e of the following making it difficult for you to work, study, or receive health care? No 10/14/2022 Education Answer Date Recorded Are you interested in more education? Not on olvin e 10/12/2023 Are you concerned about learning? Not on file 10/12/2023 No 10/12/2023 No 10/12/2023 Food Answer Date Recorded Within the past 6 months we worried whether our food would run out before we got money to buy more. Never True 10/14/2022 Within the past 6 months the food we bought just didn't last and we didn't have enough money to get more. Never True Residential Stability Answer Date Recor ded What is your housing situation today? I have talat adorno 10/14/2022 How many times have you move d in the past 12 months? Zero (I did not move) 10/14/2022 Paying for Meds Answer Date Recorded Do you have trouble paying for medicines? No 10/14/2022 Paying Utility Bills Answer Date Record ed Do you have trouble paying your heating or elect ricity bill? No 10/14/2022 Transportation Answer Date Recorded Has the lack of transportati on kept you from medical appointments or from getting medications? No 10/14/2022 Unemployment Answer Date Recorded Are you currently unemployed or working on a part-time or temporary basis, and looking for work? No 10/09/2021 Digital Access Answer Date Recorded No 10/14/2022 Yes 10/14/2022 Do you have reliable internet access at home? Ye s 10/14/2022 Do you have a device (e.g., phone, tablet, computer) with a working camera? Yes 10/14/2022 Intimate Partner Violence Answer Date R ecorded Denied Basic Needs Not on file 10/14/2022 In the past 12 months have y ou been in a relationship with a person who hurts, threatens, or tries to control you? No 10/14/2022 Worried food would run out Not on file 10/14 In the past 12 months have y ou been in a relationship with a person who hurts, threatens, or tries to control you? No 10/14/2022 Comments No Sex and Gender Information Value Date Recorded Sex Assigned at Not on file Legal Sex Female 9:58 PM EDT Gender Identity Not on file Sexual Orientation Not on file documented as of this encounter Plan of Treatment Not on file documented as of this encounter Results * US Thyroid Gland (06/09/2024 5:06 PM EDT) MGB IMG RECOMMENDATION COMMENT Right thyroid nodule percutaneous [facility] Anatomical Region Laterality Modality Neck, Head, Chest Ultrasound 06/09/2024 5:29 PM EDT Impressions 06/09/2024 5:31 PM EDT Right thyroid nodule for which percutaneous biopsy is advised. Narrative 06/09/2024 5:31 PM EDT US THYROID GLAND Referring clinician's provided indication for this examination in Epic: Outside Radiology Order; thyroid nodule TECHNIQUE: Ultrasound of the thyroid. COMPARISON: Thyroid ultrasound 01/31/2014 FINDINGS: Right Thyroid: The right lobe measures 4.2 cm in sagittal dimension. Nodule #: 1 Maximum size: 1.8 cm Position: Mid gland Composition: solid/almost completely solid (2 pts) Echogenicity: hypoechoic (2 pts) Shape: [id number] (0) Margins: smooth (0 pts) Echogenic Foci: No calcifications (0 pts) Additional Echogenic foci: None (0 pts) Total points: 4 Significant change is size (>/= 20% in two dimensions or increase in 2mm): N/A Change in Features: N/A No right sided adenopathy is detected. Left Thyroid: The left lobe measures 3.1 cm in sagittal dimension. Subcentimeter left thyroid nodule which does not meet criteria for biopsy or follow-up. No left sided adenopathy is detected. Parathyroid: A parathyroid adenoma is not identified. Procedure Note Eboni Forbes MD - 06/09/2024 US THYROID GLAND Referring clinician's provided indication for this examination in Epic:Outside Radiology Order; thyroid nodule TECHNIQUE: Ultrasound of the thyroid. COMPARISON: Thyroid ultrasound 01/31/2014 FINDINGS: Right Thyroid: The right lobe measures 4.2 cm in sagittal dimension. Nodule #: 1 Maximum size: 1.8 cm Position: Mid gland Composition: solid/almost completely solid (2 pts) Echogenicity: hypoechoic (2 pts) Shape: [id number] (0) Margins: smooth (0 pts) Echogenic Foci: No calcifications (0 pts) Additional Echogenic foci: None (0 pts) Total points: 4 Significant change is size (>/= 20% in two dimensions or increase in 2mm):N/A Change in Features: N/A No right sided adenopathy is detected. Left Thyroid: The left lobe measures 3.1 cm in sagittal dimension. Subcentimeter left thyroid nodule which does not meet criteria for biopsyor follow-up. No left sided adenopathy is detected. Parathyroid: A parathyroid adenoma is not identified. IMPRESSION: Right thyroid nodule for which percutaneous biopsy is advised. Manan Durham MD [facility] THYROID Final Result documented in this encounter Visit Diagnoses Diagnosis Thyroid nodule- Primary Nontoxic uninodular goiter Thyroid nodule Nontoxic uninodular goiter documented in this encounter Additional Health Concerns Assessment Noted Time PHQ-2 Depression Total Score: 0 10/15/19 23 3:57 PM EDT documented as of this encounter Care Teams Sponge Maker Relationship Specialty Start Date End Date Collins Pizano NP [address] [place] [address] PCP - General Nurse Practitioner 02/01/24 Rosa Newman NP [email or web address] Historical LMR Provider 11/30/16 06/11/24 documented as of this encounter Additional Source Comments The information contained in this document represents components of the legal health record. It is not the complete legal health record.[facility]
--- OUTSIDE RECORDS SUMMARY | 2024-10-18 14:07 | XMS_ITS | Encounter Summary ---
Author Organization [facility] Address [address] [facility] [address] [place] [phone] Phone Care Team Providers Care Curb Builder Name Role Phone Rosa Newman METAL FINISHER Unavailable [phone] Unknown, Unknown Primary Care Provider Collins Gandara NP Primary Care Provider [phone] Reason for Referral * Hospital - Outpatient - Closed Specialty Diagnoses / Procedures Referred By Savannah woody Referred To Contact Radiology Diagnoses TIA (transient ischemic attack) Procedures US Carotid Duplex Complete (Bilateral) Manan Durham MD [address] [place] [address], [address] [place] [address] Phone: tel: fax: [email or web address] Referral ID Status Reason Start Date Expiration Date Visits Re quested Visits Authorized [id number] Closed 01/21/2024 01/20/2025 1 1 Encounter Details Date Type Department Care Team (Latest Contact Info) Description 01/21/2024 Transcribe Orders Virtual Department [address] [place] [address] [phone] Manan Durham MD [address] [place] [address], [address] [place], [place] [phone] [email or web address] TIA (transient ischemic attack) (Primary Dx) Social History Tobacco Use Types [...] your housing situation today? I have talat sing 10/14/2022 How many times have you move [...] as of this encounter Results * US Carotid Duplex Complete (Bilateral) (02/01/2024 3:30 PM EST) Anatomical Region Laterality Modality Heart, Thoracic Vasculature, Neck Ultrasound 02/01/2024 3:58 PM EST Impressions 02/02/2024 8:42 PM EST 1. No stenosis is noted in the right internal carotid artery. 2. No stenosis is noted in the left internal carotid artery. 3. No stenosis is noted in the common carotid arteries bilaterally. 4. Unremarkable external carotid arteries bilaterally. 5. Antegrade flow in the bilateral cervical vertebral arteries. 6. Normal examination of the bilateral subclavian arteries. INCIDENTAL FINDING: A nodule is noted in the right lobe of the thyroid gland measuring 1.7 x 1 x 1 cm. RECOMMENDATION: Thyroid US STENOSIS: Internal carotid artery stenosis by duplex ultrasonography has been validated by comparing findings with angiographic stenosis. NASCET methods were used, where the most severe stenosis represents the numerator, and the normal internal carotid artery diameter distal to the stenosis where the west are parallel represents the denominator. Narrative 02/02/2024 8:42 PM EST US CAROTID DUPLEX COMPLETE (BILATERAL) Referring clinician's provided indication for this examination in Epic: Outside Radiology Order; TIA TECHNIQUE: A duplex ultrasound evaluation of the common carotid, internal carotid, external carotid, vertebral, and subclavian arteries was performed using servin scale, color duplex and spectral Doppler analysis. COMPARISON: No previous relevant examination. FINDINGS: Technically adequate exam demonstrates: RIGHT Common Carotid Artery (cm/s): Proximal Systolic: 86 Proximal Diastolic: 27 Distal Systolic: 76 Distal Diastolic: 24 Internal Carotid Artery (cm/s): Proximal Systolic: 58.4 Proximal Diastolic: 23 Mid Systolic: 56 Mid Diastolic: 23 Distal Systolic: 94 Distal Diastolic: 45 External Carotid Artery (cm/s): Systolic: 87 Diastolic: 25 Vertebral Artery (cm/s): Systolic: 45 Diastolic: 17 Subclavian Artery (cm/s): Systolic: 81 ICA/CCA Ratio: 0.8 ICA Stenosis: Normal ICA Plaque: None Visualized LEFT Common Carotid Artery (cm/s): Proximal Systolic: 78 Proximal Diastolic: 22 Distal Systolic: 71 Distal Diastolic: 28 Internal Carotid Artery (cm/s): Proximal Systolic: 83 Proximal Diastolic: 36 Mid Systolic: 75 Mid Diastolic: 34 Distal Systolic: 75 Distal Diastolic: 35 External Carotid Artery (cm/s): Systolic: 103 Diastolic: 25 Vertebral Artery (cm/s): Systolic: 41 Diastolic: 14 Subclavian Artery(cm/s): Systolic: 77 ICA/CCA Ratio: 1.2 ICA Stenosis: Normal ICA Plaque: None Visualized Abbreviations: CCA = Common Carotid Artery. ICA = Internal Carotid Artery. ECA = External Carotid Artery. Vert = Vertebral Artery. ICA/CCA Ratio = maximal ICA PSV divided by the distal CCA PSV. DIRECT TEST FINDINGS: Right: Doppler flow velocities and waveform contours are within normal limits throughout the internal carotid artery, no plaque is visualized. No plaque is visualized in the common carotid artery. Unremarkable external carotid artery. Antegrade flow is noted in the vertebral artery. The subclavian artery is patent. Left: Doppler flow velocities and waveform contours are within normal limits throughout the internal carotid artery, no plaque is visualized. No plaque is visualized in the common carotid artery. Unremarkable external carotid artery. Antegrade flow is noted in the vertebral artery. The subclavian artery is patent. Procedure Note Verena Dorado MD - 02/02/2024 US CAROTID DUPLEX COMPLETE (BILATERAL) Referring clinician's provided indication for this examination in Epic:Outside Radiology Order; TIA TECHNIQUE: A duplex ultrasound evaluation of the common carotid, internalcarotid, external carotid, vertebral, and subclavian arteries wasperformed using servin scale, color duplex and spectral Doppler analysis. COMPARISON: No previous relevant examination. FINDINGS: Technically adequate exam demonstrates: RIGHT Common Carotid Artery (cm/s): Proximal Systolic: 86 Proximal Diastolic: 27 Distal Systolic: 76 Distal Diastolic: 24 Internal Carotid Artery (cm/s): Proximal Systolic: 58.4 Proximal Diastolic: 23 Mid Systolic: 56 Mid Diastolic: 23 Distal Systolic: 94 Distal Diastolic: 45 External Carotid Artery (cm/s): Systolic: 87 Diastolic: 25 Vertebral Artery (cm/s): Systolic: 45 Diastolic: 17 Subclavian Artery (cm/s): Systolic: 81 ICA/CCA Ratio: 0.8 ICA Stenosis: Normal ICA Plaque: None Visualized LEFT Common Carotid Artery (cm/s): Proximal Systolic: 78 Proximal Diastolic: 22 Distal Systolic: 71 Distal Diastolic: 28 Internal Carotid Artery (cm/s): Proximal Systolic: 83 Proximal Diastolic: 36 Mid Systolic: 75 Mid Diastolic: 34 Distal Systolic: 75 Distal Diastolic: 35 External Carotid Artery (cm/s): Systolic: 103 Diastolic: 25 Vertebral Artery (cm/s): Systolic: 41 Diastolic: 14 Subclavian Artery(cm/s): Systolic: 77 ICA/CCA Ratio: 1.2 ICA Stenosis: Normal ICA Plaque: None Visualized Abbreviations: CCA = Common Carotid Artery. ICA = Internal Carotid Artery. ECA =External Carotid Artery. Vert = Vertebral Artery. ICA/CCA Ratio = maximalICA PSV divided by the distal CCA PSV. DIRECT TEST FINDINGS: Right: Doppler flow velocities and waveform contours are within normallimits throughout the internal carotid artery, no plaque is visualized. [place] is visualized in the common carotid artery. Unremarkable externalcarotid artery. Antegrade flow is noted in the vertebral artery. Thesubclavian artery is patent. Left: Doppler flow velocities and waveform contours are within normallimits throughout the internal carotid artery, no plaque is visualized. [place] is visualized in the common carotid artery. Unremarkable externalcarotid artery. Antegrade flow is noted in the vertebral artery. Thesubclavian artery is patent. IMPRESSION: 1. No stenosis is noted in the right internal carotid artery. 2. No stenosis is noted in the left internal carotid artery. 3. No stenosis is noted in the common carotid arteries bilaterally. 4. Unremarkable external carotid arteries bilaterally. 5. Antegrade flow in the bilateral cervical vertebral arteries. 6. Normal examination of the bilateral subclavian arteries. INCIDENTAL FINDING: A nodule is noted in the right lobe of the thyroidgland measuring 1.7 x 1 x 1 cm. RECOMMENDATION: Thyroid US STENOSIS: Internal carotid artery stenosis by duplex ultrasonography hasbeen validated by comparing findings with angiographic stenosis. NASCETmethods were used, where the most severe stenosis represents thenumerator, and the normal internal carotid artery diameter distal to thestenosis where the west are parallel represents the denominator. us Manan Durham MD CV US NEUROVASCULAR Final Re sult documented in this encounter Visit Diagnoses Diagnosis TIA (transient ischemic attack)- Primary Unspecified transient cerebral ischemia TIA (transient ischemic attack) Unspecified transient cerebral ischemia documented in this encounter Additional Health Concerns Assessment Noted Time PHQ-2 Depression Total Score: 0 10/15/19 23 3:57 PM EDT documented as of this encounter Care Teams Curb Builder Relationship Specialty Start Date End Date Unknown, Unknown, MD PCP - General 05/10/23 01/31/24 Collins Pizano, [employer] [address] [place] [address] PCP - General Nurse Practitioner 02/01/24 Rosa Newman NP [email or web address] Historical LMR Provider 11/30/16 06/11/24 documented as of this encounter Additional Source Comments The information contained in this document represents components of the legal health record. It is not the complete legal health record.[facility]
--- OUTSIDE RECORDS SUMMARY | 2024-10-18 14:07 | XMS_ITS | Clinical Summary ---
Author Organization [facility] Address [address] [place] [address] Phone Care Team Providers Care Loom Control Chain Builder Name Role Phone Tim Chambers MD Primary Care Provider [phone] Social History Tobacco Use Types Packs/Day Years [...] 11/16/2022 11/16/2012 Colorectal Cancer Screening: Colonoscopy 03/12/2023 Falls Risk Assessment 03/12/2023 Osteoporosis Screening (Bone Density Screening) 03/12/2023 Social Influencers of Health Screening 03/12/2023 Depression Screening 02/16/2024 Influenza Vaccine (#1) 2024 3, 12/15/2021, 10/31/2019, Additional history exists Cholesterol Screening [...] patient's age to complete this topic Insurance [employer] [facility] Care Teams Loom Control Chain Builder Relationship Specialty Start Date End Date Tim Chambers MD [address] [place] [id number] PCP - General 02/15/10
--- OUTSIDE RECORDS SUMMARY | 2024-10-18 14:07 | XMS_ITS | Clinical Summary ---
Author Organization [facility] Address [address] [facility] [address] [place] [phone] Phone Care Team Providers Care Cylinder Inspector Name Role Phone Collisn Pizano NP Primary Care Provider Allergies Active Allergy Reactions Criticality Noted Date Comments Adhesive 06/30/2021 Tape Indomethacin Sodium Headaches 04/07/2016 Latex 06/30/2021 Levofloxacin Other (See Comments),Headaches,Naus ea and/or Vomiting 05/22/2021 Body aches Morphine Hypotension 04/07/2016 Oxycodone Nausea and/or Vomiting 04/27/2017 Penicillins Hives,Shortness Of Breath High 04/27/2017 Chest tightness Sulfasalazine Hives,Itching,Swelling 04/01/2022 Medications calcium carbonate (OS-ISRA) 1,500 mg (600 mg elemental) tablet Take 600 mg by mouth 2 (two) times a day with meals. Active magnesium 250 mg Tab Take 1 tablet by mouth daily. With a meal Active MULTIVITAMIN ORAL Take 1 capsule by mouth daily. Active ascorbic acid, vitamin C, (VITAMIN C) 1000 MG tablet Take 1,000 mg by mouth daily. Active biotin 10 mg Tab Take 10 mg by mouth daily. Active glucosamine-chond roitin 500-400 mg Cap Take 1 capsule by mouth 2 (two) times a day. Active cyanocobalamin, vitamin B-12, (VITAMIN B-12 ORAL) Take 1 tablet by mouth daily. Active sodium chloride (ADRIANO 128) 5 % ophthalmic solution Place 2 drops into each eye 2 (two) times a day. Active folic acid (FOLVITE) 1 MG tablet 3 Active methotrexate 2.5 MG Oral tablet 3 Active betamethasone dipropionate 0.05 % cream Apply topically 2 (two) times a day. Apply BID PRN to rectal area 15 g 3 Active fluconazole (DIFLUCAN) 150 MG tablet X 1 dose may repeat in 2-3 days if needed 2 tablet 4 Active Active Problems Problem Noted Date Diagnosed Date Sore throat 02/19/2023 Assessment & Plan (02/19/2023 11:18 PM EST): Ongoing after likely viral illness. Recommended good hydration, continue green tea with honey. Await throat culture results. If negative/WNL would recommend restarting MTX. [facility] cc'ed on visit note. Lumbar spine pain 02/19/2023 Assessment & Plan (02/19/2023 11:19 PM EST): Await xray results. Discussed nature of osteopenia and regular stretching/mobility of spine exercises to help with lower back pain. Maintain proper form when doing crunches/situps to avoid low back strain. Await DXA end of Feb. History of basal cell cancer 10/15/2022 Gallstones 04/01/2022 History of partial colectomy 04/01/2022 Overview (04/01/2022): 2007- chronic diverticulitis 6-8 inches Polyarthritis with positive rheumatoid factor Osteopenia 05/22/2021 Edema of right lower leg 07/08/2020 Assessment & Plan (07/08/2020 10:29 AM EDT): The issues she is discussing seems to be too fleeting to be a arthritic injury to the right o and its the wrong joint to be gout and should be a much more painful if it is gout. Therefore my thought is this is a venous stasis issue and if it comes back she should be ready with some Lasix 20 mg to reduce swelling. We will however rule out a DVT which would be a very subtle 1 at that. Gastroesophageal reflux disease without esophagi tis 05/01/2020 Retinal detachment of right eye with single reti nal tear 03/26/2020 Assessment & Plan (03/26/2020 11:08 AM EST): The patient is interviewed and examined and found to be an excellent candidate for the upcoming low risk procedure. She does not have any cardiovascular risk that we can see of aside from obstructive sleep apnea which is being treated. As such no further cardiovascular testing necessary before the surgery. Patient is not on any anticoagulants or antiplatelet agents. An EKG came back normal sinus rhythm. Patient may proceed to the planned surgery date without any further testing without reservation from this tobacco checkout clerk. Seasonal allergic rhinitis 09/22/2019 Obstructive sleep apnea syndrome 04/27/2017 Overview (04/01/2022): Wears cpap Assessment & Plan (04/27/2017 10:47 AM EDT): Wears CPAP regularly Impingement syndrome of left shoulder 04/27/2017 History of benign brain tumor 04/27/2017 Assessment & Plan (04/27/2017 10:48 AM EDT): Followed by Dr. Burns. Recent MRI showed no reoccurrence and she will have repeat MRI in 3 years. History of craniotomy 04/27/2017 Immunizations Immunization Administration Dates Next Due COVID-19 (Pre-12/07) Micky Vaccine, rS-Ad26, PF 04/27/2020 INFLUENZA, SPLIT VIRUS, TRIVALENT PF 10/22/2015 INFLUENZA, SPLIT VIRUS, TRIV ALENT W/ PRESERVATIVE IM 02/05/2015,11/29/2013,10/28/2011 Influenza High-Dose Quadriva lent Preservative Free IM 12/15/2021,10/31/2019 Influenza High-Dose Trivalen t Preservative Free IM 03/08/2019,12/23/2017 Influenza Quadrivalent Adjuv anted Preservative Free IM 11/02/2022 Influenza Quadrivalent Preservative Free IM 04/15 Influenza trivalent preserva tive free intradermal 11/16/2012 Pneumococcal conjugate PCV13 04/03/2015 Pneumococcal polysaccharide PPSV23 04/28/2017, RSV Vaccine (monovalent, adjuvanted) 02/09/2023 Tdap 11/16/2012 Zoster recombinant 01/03/2020,09/22/2019 Family History Medical History Relation Comments No Known Problems Daughter 1 No Known Problems Daughter 2 Stroke Father Heart disease Mother No Known Problems Son Relation Status Comments Daughter 1 Alive Daughter 2 Alive Father (Age 91) Mother (Age 68) Son Alive Social History Tobacco Use Types Packs/Day Years Used Date Smoking Tobacco: Former Cigarettes 0.5 7.9 0 03/28/1960 - 02/16/1968 Smokeless Tobacco: Never Tobacco Cessation:Counseling Given: Not Answered Alcohol Use Standard Drinks/Week Comments No 0 [...] 10/09/2021 Digital Access Answer Date Recorded No 10/16/2024 No 10/16/2024 Reliable internet access at home? Not on file 10/16/2024 Device with a working camera? Not on file Intimate Partner Violence Answer Date R ecorded [...] on file Sexual Orientation Not on file Last Filed Vital Signs Vital Sign Reading Time Taken Comments Blood Pressure 132/82 02/19/2023 2:40 PM EST Pulse 75 02/19/2023 2:40 PM EST Temperature 36.8 C (98.2 F) 02/19/2023 2:40 PM EST Respiratory Rate 16 02/19/2023 2:40 PM EST Oxygen Saturation 99% 02/19/2023 2:40 PM EST Inhaled Oxygen Concentration - - Weight 61.8 kg (136 lb 3.2 oz) 02/19/2023 2:40 P M EST Height 152.4 cm (5') 02/19/2023 2:40 PM EST Body Mass Index 26.6 02/19/2023 2:40 PM EST Plan of Treatment Health Maintenance Due Date Last Done Comments SMOKING Hx and SMOKELESS TOBACCO SCREENING 1965 COLOGUARD 1997 FIT TEST 1997 FOBT 1997 SIGMOIDOSCOPY 1997 VIRTUAL COLONOSCOPY 1997 PNEUMOCOCCAL VACCINES (50+ years) (4 of 4 - PCV20 or PCV21) 04/28/2022 04/28/2017, 04/03/2015, 10/28/2011 Adult Td,Tdap Booster 11/16/2022 11/16/2012 DEPRESSION SCREENING 10/15/2023 10/14/2022 INFLUENZA VACCINE (#1) 2024 3, 12/15/2021, 10/31/2019, Additional history exists COVID-19 VACCINE (4 - 5-26 season) 2024 07/18/2021, 01/22/2021, 04/27/2020 MAMMOGRAM 02/25/2025 02/25/2023, 08/2021, 10/10/2021, Additional history exists FOLLOW UP BONE DENSITY TESTING 03/30/2025 03/30/2023, 10/15/2022, 11/14/2020, Additional history exists LIPID PANEL 03/27/2027 03/27/2022, 08/2021, 10/04/2020, Additional history exists COLONOSCOPY 08/12/2027 08/11/2022, 05/16, 01/15/2012 COLORECTAL CANCER SCREENING 08/12/2027 HEPATITIS C SCREENING Completed 09/22/2019 ZOSTER VACCINES Completed 01/03/2020, 09/22/2019 RSV VACCINE Completed 02/09/2023 OSTEOPOROSIS SCREENING INITIAL (ONE-TIME) Completed 03/30/2023, 10/15/2022, 11/14/2020, Additional history exists HEPATITIS A VACCINES Aged Out No long er eligible based on patient's age to complete this topic HIB VACCINES Aged Out No longer eligi ble based on patient's age to complete this topic MENINGOCOCCAL VACCINES (ACWY) Aged Out No longer eligible based on patient's age to complete this topic MENINGOCOCCAL VACCINES (B) Aged Out N o longer eligible based on patient's age to complete this topic Medical Devices Not on file Procedures Procedure Name Priority Date/Time Associated Diagnosis Comments HM DEXA SCAN Routine 03/30/2023 4:09 PM EST HM MAMMOGRAPHY Routine 02/25/2023 10:29 AM EST COLONOSCOPY FOR RESULT ENTRY ONLY Routine 08/11/2022 LIPID PANEL Routine 03/27/2022 11:20 AM EST Routine medical exam HEPATITIS C ANTIBODY, QUALITATIVE Routine 09/22/2019 11:56 AM EDT Routine general medical examination at a health care facility from Last 3 Months or Most Recently Relevant to Health Maintenance Results * HM DEXA SCAN (03/30/2023 4:09 PM EST) us Rosa Newman NP HEALTH MAINTENANCE Edited Resul t - Final * HM MAMMOGRAPHY FOR RESULT ENTRY ONLY (02/25/2023 10:29 AM EST) us Rosa Newman NP HEALTH MAINTENANCE Final Result * HM COLONOSCOPY FOR RESULT ENTRY ONLY (08/11/2022) Rosa Newman NP HEALTH MAINTENANCE Edited Resul t - Final * (ABNORMAL) Lipid panel (03/27/2022 11:20 AM EST) HDL 66 mg/dL [facility] Comment: Interpretation <40 mg/dL: Low HDL cholesterol (major risk factor for CHD) Greater than or equal to 60 mg/dL: High HDL cholesterol ( negative risk factor for CHD) HDL - cholesterol is affected by a number of factors, e.g. smoking, excerise, hormones, sex and age. CHOLESTEROL 194 0 - 240 mg/dL [facility] TRIGLYCERIDES 91 30 - 160 mg/dL [facility] LDL 110 50 - 129 mg/dL [facility] Comment: LDL levels in terms of risk for coronary heart disease: <100 mg/dL: Optimal 100-129 mg/dL: Near or above optimal 130-159 mg/dL: Borderline high 160-189 mg/dL: High >190 mg/dL: Very High CARDIAC RISK RATIO 2.9(L) 3.3 - 4.4 [facility] Blood 03/27/2022 11:2 0 AM EST 03/27/2022 11:27 AM EST Rosa Newman NP LAB BLOOD ORDERABLES Final Resu lt [address] [id number] * Hepatitis C antibody, qualitative (09/22/2019 11:56 AM EDT) HCV NON-REACTIV E NON-REACTI VE [facility] Blood 09/22/2019 11:5 6 AM EDT 09/22/2019 12:19 PM EDT us Rosa Newman NP LAB BLOOD ORDERABLES Final Resu lt [address] [address] from Last 3 Months or Most Recently Relevant to Health Maintenance Insurance [employer] [place] [id number] [employer] [place] [address] [employer] [place] [address] [employer] [place] [address] [employer] [place] [address] [employer] [address] [employer] [address] [employer] Care Teams Cylinder Inspector Relationship Specialty Start Date End Date Collins Pizano NP [address] [place] [address] PCP - General Nurse Practitioner 02/01/24 Additional Source Comments The information contained in this document represents components of the legal health record. It is not the complete legal health record.[facility]
== END 2024-10-18 11:59 | disposition home or self-care (01) ==
LOC: HO.HMGAL 11:44
PROVIDERS: PCP Nurse Practitioner; Visit Provider Registered Nurse Emergency
DX: J30.89 Other allergic rhinitis (principal)
CPT/HCPCS: 95117; 95165

== ENCOUNTER 2024-11-28 11:53 | Outpatient (REF) | payer OTHER, SELFPAY ==
[2024-11-28 13:27] LABS: MANUAL DIFF FLAG NO
[2024-11-28 13:32] LABS: Hematocrit 40.8 % (37.0-47.0); Hemoglobin 13.5 g/dl (12.0-16.0); Imm Gran Abs Auto 0.02 X10*3/uL (0.00-0.03); Imm Gran Pct Auto 0.3 % (0.0-0.4); Lymphocytes Absolute Auto 2.0 X10*3/uL (1.2-4.9); Mean Corpuscular HGB Conc 33.1 g/dl (31.0-35.0); Mean Corpuscular Hemoglobin 31.0 pg (27.0-33.0); Mean Corpuscular Volume 93.6 fL (80.0-98.0); NRBC Abs Auto 0.000 X10*3/uL (0.0-0.012); NRBC Pct Auto 0.0 /100WBC (0.0-0.2); Platelet Count 264 X10*3/uL (160-400); Red Blood Count 4.36 X10*6/uL (4.20-5.50); White Blood Count 7.8 X10*3/uL (4.8-10.8)
[2024-11-28 14:00] LABS: Alanine Aminotransferase 15 U/L (0-31); Albumin Level 4.2 g/dL (3.5-5.0); Anion Gap 11 (12-20); Aspartate Amino Transferase 20 U/L (5-31); Blood Urea Nitrogen 8 mg/dL (9-16); Calcium 9.3 mg/dL (8.4-10.2); Carbon Dioxide 26 mmol/L (22-29); Chloride 110 mmol/L (96-108); Estimated Glomerular Filt Rate > 60; Potassium 4.4 mmol/L (3.3-5.1); Sodium 143 mmol/L (135-145); Total Protein 6.7 g/dL (6.5-8.0)
[2024-11-28 14:13] LABS: Alkaline Phosphatase 64 U/L (39-117)
== END 2024-11-28 11:54 | disposition home or self-care (01) ==
LOC: HO.HMGCLDS 11:53
PROVIDERS: PCP Nurse Practitioner; Visit Provider Student in an Organized Health Care Education/Training Program
DX: Z79.899 Other long term (current) drug therapy (principal)
CPT/HCPCS: 36415; 80053; 85025; 85652; 86140

== ENCOUNTER 2024-11-29 13:22 | Outpatient (AMB) | payer OTHER, SELFPAY ==
--- NOTE | 2024-11-29 13:27 | A.OFFVIS_ITS ---
Vital Signs 11/29/24 13:28 Height 5 ft Weight 142 lb 3.17 oz BMI 27.8 BP 130/90 H Blood Pressure Location Lt brachial Position Sitting Pulse 98 Pulse Source Pulse Oximeter Pulse Oximetry (%) 97 Oxygen Delivery Method Room Air Intake Visit Reasons: RA Intake Note: Patient presents for RA follow up and lab review. Accompanied by: Self / Same As Patient Allergies sulfasalazine Allergy (Intermediate, Verified 11/29/24 13:27) Hives morphine (Morphine) Allergy (Mild, Verified 11/29/24 13:27) HYPOTENSION levofloxacin Allergy (Verified 11/29/24 13:27) Unknown hydrocodone (From Vicodin) Adverse Reaction (Mild, Verified 11/29/24 13:27) NAUSEA & VOMITING indomethacin (From Indocin) Adverse Reaction (Mild, Verified 11/29/24 13:27) MIGRAINE HEADACHE Penicillins Adverse Reaction (Mild, Verified 11/29/24 13:27) TACHYACRDIA prednisolone Adverse Reaction (Verified 11/29/24 13:27) Hives Medication List - Last Reconciled 11/29/24 by Lara Rey MD No Known Home Meds HPI Comments Details: Patient is a 74-year-old female with history of a brain tumor status post resection, polyarticular osteoarthritis involving hands and knees, seropositive nonerosive rheumatoid arthritis (RF positive, 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 Interval History: Last seen 07/31/24 with me - Not on DMARDs, self-discontinued on a background of antibiotic use - Denies prolonged AM stiffness or joint swelling - Still has some aches and pains on the right side that she fell on - Currently undergoing work up for her thyroid Today - Not on DMARDs - Doing well - Denies prolonged AM stiffness or joint swelling - Complaining of bilateral shoulder pains and neck pain - Right knee pain, s/p 07/2024 injection with ortho Rheumatologic History: Onset 2021. RF pos CCP neg 10/2021 sulfasalazine started skin rash so it was stopped Methotrexate started 02/2022 Current Rheumatology Medication(s): [facility] Medical History Diverticulitis No known health problems Surgical History History of colon resection Family History Mother Heart disease Social History Household Members: Spouse Housing: House Are you a primary career development consultant to a significant other at home: No Do you presently have visiting nurse or other home services: No 75 years or older and lives alone: No Alcohol intake: never Patient Tobacco Use Status: Never used Tobacco e-Cigarette/Vaping Use: Never Used service: No Current occupational status: retired Review of Systems Const Details: Review of Systems Constitutional: Denies fever, chills, weight loss ENT: Denies vision changes, eye pain or eye redness, dental caries, dry mouth GI: Denies nausea, vomiting, diarrhea, abdominal pain, change in BM Pulm: Denies SOB, CALVO, hemoptysis, wheezing Cards: Denies chest pain, palpitations Skin: Denies Raynaud's, rash, nail changes, photosensitivity, OYSTER SHIPPER: Denies headaches, weakness, paresthesias, recurrent falls MSK: as per HPI All other systems reviewed and are unremarkable except noted above Physical Exam Exam Exam: Vital signs reviewed Physical Examination CONSTITUITIONAL Patient alert and cooperative. Well appearing and in no apparent painful distress MSK Hands * Right Hand: Able to make a fist. No swelling or tenderness to palpation of the MCPs, PIPs or DIPs. * Left Hand: Able to make a fist. No swelling or tenderness to palpation of the MCPs, PIPs or DIPs. * Herbedens nodes noted bilaterally Wrists * Right Wrist: Full ROM to flexion and extension. No swelling or TTP * Left Wrist: Full ROM to flexion and extension. No swelling or TTP Elbows * Right Elbow: Full ROM. No swelling or TTP. No TTP of the medial epicondyle. No TTP of the lateral epicondyle * Left Elbow: Full ROM. No swelling or TTP. No TTP of the medial epicondyle. No TTP of the lateral epicondyle Shoulders * Right shoulder: No swelling noted. No TTP of the AC joint. No TTP of the subacromial bursa. No TTP of the posterior shoulder * Left shoulder: No swelling noted. No TTP of the AC joint. No TTP of the subacromial bursa. No TTP of the posterior shoulder Knees * Right knee: No swelling noted. No TTP of the knee joint line. No TTP of pes anserine bursa * Left knee: No swelling noted. No TTP of the knee joint line. No TTP of pes anserine bursa. * Crepitations felt bilaterally Ankles * Right ankle: Good ankle dorsiflexion and plantar flexion. No swelling. No TTP of the ankle joint * Left ankle: Good ankle dorsiflexion and plantar flexion. No swelling. No TTP of the ankle joint Feet * Right foot: Negative squeeze test * Left foot: Negative squeeze test Tender points? * No tenderness to palpation of the bilateral trapezius, supraspinatus, anterior costochondral junctions, bilateral suboccipital muscle insertions SKIN No rashes Vital Signs: Last Vital Signs Pulse 98 11/29/24 13:28 BP 130/90 H 11/29/24 13:28 Pulse Ox 97 11/29/24 13:28 Oxygen Delivery Method Room Air 11/29/24 13:28 BMI result Body Mass Index 27.8 Results Reviewed Results Reviewed: Laboratory Tests 11/28/24 12:00 WBC 7.8 RBC 4.36 Hgb 13.5 Hct 40.8 Plt Count 264 ESR 12 Sodium 143 Potassium 4.4 Chloride 110 H Carbon Dioxide 26 BUN 8 L Creatinine 0.58 AST 20 ALT 15 C-Reactive Protein 0.14 Laboratory Tests 09/22/21 10:05 Cycl Citrul Peptide IgG <16 SS-A/Ro Antibody <1.0 NEG SS-B/La Antibody <1.0 NEG Assessment & Plan Assessment & Plan (1) Seropositive erosive rheumatoid arthritis: Comment: Onset 2021. RF pos CCP neg ulfasalazine started skin rash so it was stopped no additional treatment at that point Code(s): M05.80 - Other rheumatoid arthritis with rheumatoid factor of unspecified site Category: Medical Plan: #Seropositive Non Erosive RA Patient is a 73-year-old female with seropositive nonerosive rheumatoid arthritis here today for follow up. Doing well off methotrexate Will continue to monitor Plan - Monitor off DMARDs - RTC 6 months - Labs before visit: CBC, CMP, ESR, CRP (2) Osteoarthritis of knees, bilateral: Code(s): M17.0 - Bilateral primary osteoarthritis of knee Category: Medical Qualifiers: Osteoarthritis type: primary Qualified Code(s): M17.0 - Bilateral primary osteoarthritis of knee Plan: #Bilateral Knee OA Continue follow-up with Orthopedics. (3) Screening for osteoporosis: Code(s): Z13.820 - Encounter for screening for osteoporosis Plan: #Screening for osteoporosis Follows with primary and gets her DEXA from them Plan I spent 25 minutes reviewing the record and labs, seeing the patient, discussing the treatment plan and documenting in the medical record Orders: Orders C Reactive Protein 6 Months Z79.899 - Other terminal gauger supervisor (current) drug therapy Complete Blood Count Auto Diff 6 Months Z79.899 - Other terminal gauger supervisor (current) drug therapy Comprehensive Met. Panel 6 Months Z79.899 - Other detention (current) drug therapy Erythrocyte Sedimentation Rate 6 Months Z79.899 - Other terminal gauger supervisor (current) drug therapy Coding Level of Care Code Est Pt Level 3 (06201) Complex EM visit Add On G2211 Diagnoses Seropositive erosive rheumatoid arthritis M05.80 Primary osteoarthritis of both knees M17.0 Osteoarthritis type: primary Screening for osteoporosis Z13.820
[2024-11-29 13:28] VITALS: BP 130/90; PULSE 98; O2SAT 97; BMI 27.8
--- OUTSIDE RECORDS SUMMARY | 2024-11-29 17:02 | XMS_ITS | Clinical Summary ---
Author Organization [facility] Address [address] [facility] [address] [place] [address] Phone Care Team Providers Care Electronic Controls Repairer Supervisor Name Role Phone Collins Pizano NP Primary Care Provider [phone] Allergies Active Allergy Reactions Criticality Noted Date [...] results. If negative/WNL would recommend restarting MTX. [facility] cc'ed on visit note. Lumbar spine [...] any further testing without reservation from this puzzle assembler. Seasonal allergic rhinitis 09/22/2019 Obstructive sleep apnea [...] (03/27/2022 11:20 AM EST) HDL 66 mg/dL [facility] Comment: Interpretation <40 mg/dL: Low HDL cholesterol (major risk factor for CHD) Greater than or equal to 60 mg/dL: High HDL cholesterol ( negative risk factor for CHD) HDL - cholesterol is affected by a number of factors, e.g. smoking, excerise, hormones, sex and age. CHOLESTEROL 194 0 - 240 mg/dL [facility] TRIGLYCERIDES 91 30 - 160 mg/dL [facility] LDL 110 50 - 129 mg/dL [facility] Comment: LDL levels in terms of risk for coronary heart disease: <100 mg/dL: Optimal 100-129 mg/dL: Near or above optimal 130-159 mg/dL: Borderline high 160-189 mg/dL: High >190 mg/dL: Very High CARDIAC RISK RATIO 2.9(L) 3.3 - 4.4 C [facility] Blood 03/27/2022 11:2 0 AM EST 03/27/2022 11:27 AM EST Rosa Newman NP LAB BLOOD ORDERABLES Final Resu lt [address] [address] * Hepatitis C antibody, qualitative (09/22/2019 11:56 AM EDT) HCV NON-REACTIV E NON-REACTI VE [facility] Blood 09/22/2019 11:5 6 AM EDT 09/22/2019 12:19 PM EDT us Rosa Newman NP LAB BLOOD ORDERABLES Final Resu lt [address] [address] from Last 3 Months or Most Recently Relevant to Health Maintenance Insurance [employer] [place] [id number] [email or web address] [place] [address] [employer] [place] [id number] [employer] [place] [address] [employer] [address] [employer] [address] [employer] [place] [address] [facility] [employer] ADMIN[employer]RATORS Care Teams Electronic Controls Repairer Supervisor Relationship Specialty Start Date End Date Collins Pizano NP [address] [place] [address] PCP - General Nurse Practitioner 02/01/24 Additional Source Comments The information contained in this document represents components of the legal health record. It is not the complete legal health record.[facility]
--- OUTSIDE RECORDS SUMMARY | 2024-11-29 17:03 | XMS_ITS | Encounter Summary ---
Author Organization [facility] Address [address] [place] [address] Phone Care Team Providers Care Window Framer Name Role Phone Rosa Newman ASSOCIATE THEATRE PROFESSOR Unavailable [phone] Collins Pizano ASSOCIATE THEATRE PROFESSOR Primary Care Provider Encounter Details Date Type Department Care Team (Latest Contact Info) Description 06/01/2024 Transcribe Orders Virtual Department [address] [place] [address] Manan Durham MD [address] [place] [address], [address] [place] [address] [email or web address] Thyroid nodule (Primary Dx) Social History [...] (2 pts) Echogenicity: hypoechoic (2 pts) Shape: chzet-[id number]-[id number] (0) Margins: smooth (0 pts) Echogenic Foci: [...] (2 pts) Echogenicity: hypoechoic (2 pts) Shape: xctob-lrts-kzib (0) Margins: smooth (0 pts) Echogenic Foci: [...] percutaneous biopsy is advised. Manan Durham MD [facility] Final Result documented in this encounter Visit Diagnoses Diagnosis Thyroid nodule- Primary Nontoxic uninodular goiter Thyroid nodule Nontoxic uninodular goiter documented in this encounter Additional Health Concerns Assessment Noted Time PHQ-2 Depression Total Score: 0 10/15/19 23 3:57 PM EDT documented as of this encounter Care Teams Window Framer Relationship Specialty Start Date End Date Collins Pizano NP [address] [place] [address] PCP - General Nurse Practitioner 02/01/24 Rosa Newman NP [email or web address] Historical LMR Provider 11/30/16 06/11/24 documented as of this encounter Additional Source Comments The information contained in this document represents components of the legal health record. It is not the complete legal health record.[facility]
--- OUTSIDE RECORDS SUMMARY | 2024-11-29 17:03 | XMS_ITS | Encounter Summary ---
Author Organization [facility] Address [address] [facility] [address] [place] [address] Phone Care Team Providers Care Supervisor Aircraft Cleaning Name Role Phone Rosa Newman PAPER FINISHER Unavailable [phone] Unknown, Unknown Primary Care Provider Collins Gandara NP Primary Care Provider [phone] Reason for Referral * Hospital - Outpatient - Closed Specialty Diagnoses / Procedures Referred By Savannah woody Referred To Contact Radiology Diagnoses TIA (transient ischemic attack) Procedures US Carotid Duplex Complete (Bilateral) Manan Durham MD [address] [place] [address], [address] [place] [address] Phone: tel: fax: mailto: Referral ID Status Reason Start Date Expiration Date Visits Re quested Visits Authorized [id number] Closed 01/21/2024 01/20/2025 1 1 Encounter Details Date Type Department Care Team (Latest Contact Info) Description 01/21/2024 Transcribe Orders Virtual Department [address] [place] [address] [phone] Manan Durham MD [address] [place] [address], [address] [place], [place] [phone] [email or web address] TIA (transient ischemic attack) (Primary Dx) [...] are parallel represents the denominator. us Manan Duhram MD CV US NEUROVASCULAR Final Re sult documented in this encounter Visit Diagnoses Diagnosis TIA (transient ischemic attack)- Primary Unspecified transient cerebral ischemia TIA (transient ischemic attack) Unspecified transient cerebral ischemia documented in this encounter Additional Health Concerns Assessment Noted Time PHQ-2 Depression Total Score: 0 10/15/19 23 3:57 PM EDT documented as of this encounter Care Teams Supervisor Aircraft Cleaning Relationship Specialty Start Date End Date Unknown, Unknown, MD PCP - General 05/10/23 01/31/24 Collins Pizano, [employer] [address] [place] [address] PCP - General Nurse Practitioner 02/01/24 Rosa Newman NP [email or web address] Historical LMR Provider 11/30/16 06/11/24 documented as of this encounter Additional Source Comments The information contained in this document represents components of the legal health record. It is not the complete legal health record.[facility]
== END 2024-11-29 13:54 | disposition home or self-care (01) ==
LOC: HO.RHES 13:23
PROVIDERS: PCP Nurse Practitioner; Visit Provider Student in an Organized Health Care Education/Training Program
DX: M05.80 Other rheumatoid arthritis with rheumatoid factor of unspecified site (principal); M17.0 Bilateral primary osteoarthritis of knee; Z13.820 Encounter for screening for osteoporosis
CPT/HCPCS: 99213

== ENCOUNTER 2024-11-29 14:37 | Outpatient (AMB) | payer OTHER, SELFPAY | END 2024-11-29 14:37 | disposition home or self-care (01) | LOC: HO.HMGAL 14:37 | PROVIDERS: PCP Nurse Practitioner; Visit Provider Registered Nurse Emergency | DX: J30.89 Other allergic rhinitis (principal) | CPT/HCPCS: 95117; 95165 ==

== ENCOUNTER 2025-02-14 13:29 | Outpatient (AMB) | payer OTHER, SELFPAY ==
--- OUTSIDE RECORDS SUMMARY | 2025-02-14 14:53 | XMS_ITS | Encounter Summary ---
Author Organization [facility] Address [address] [place] [address] Phone Care Team Providers Care Christian Counselor Name Role Phone Rosa Newman TANK WELDER Unavailable [phone] Collins Pizano TANK WELDER Primary Care Provider Encounter Details Date Type Department Care Team (Latest Contact Info) Description 06/01/2024 Transcribe Orders Virtual Department [address] [place] [address] Manan Durham MD [address] [place] [address], [address] [place] [address] [email or web address] Thyroid nodule (Primary Dx) Social History [...] (2 pts) Echogenicity: hypoechoic (2 pts) Shape: hyhas-gwrn-oxtg (0) Margins: smooth (0 pts) Echogenic Foci: [...] (2 pts) Echogenicity: hypoechoic (2 pts) Shape: vwcur-xxvc-jrns (0) Margins: smooth (0 pts) Echogenic Foci: [...] biopsy is advised. Manan Durham MD [facility] Final Result documented in this encounter Visit Diagnoses Diagnosis Thyroid nodule- Primary Nontoxic uninodular goiter Thyroid nodule Nontoxic uninodular goiter documented in this encounter Additional Health Concerns Assessment Noted Time PHQ-2 Depression Total Score: 0 10/15/19 23 3:57 PM EDT documented as of this encounter Care Teams Christian Counselor Relationship Specialty Start Date End Date Collins Piazno NP [address] [place] [address] PCP - General Nurse Practitioner 02/01/24 Rosa Newman NP [email or web address] Historical LMR Provider 11/30/16 06/11/24 documented as of this encounter Additional Source Comments The information contained in this document represents components of the legal health record. It is not the complete legal health record.[facility]
--- OUTSIDE RECORDS SUMMARY | 2025-02-14 14:53 | XMS_ITS | Encounter Summary ---
Author Organization [facility] Address [address] [facility] [address] [place] [address] Phone Care Team Providers Care Ear Nose Throat Surgeon Name Role Phone Rosa Newman CASE ADVOCATE Unavailable [phone] Unknown, Unknown Primary Care Provider Collins Gandara NP Primary Care Provider [phone] Reason for Referral * Hospital - Outpatient - Closed Specialty Diagnoses / Procedures Referred By Savannah woody Referred To Contact Radiology Diagnoses TIA (transient ischemic attack) Procedures US Carotid Duplex Complete (Bilateral) Manan Durham MD [address] [place] [address], [address] [place] [address] Phone: tel: fax: [email or web address] Referral ID Status Reason Start Date Expiration Date Visits Re quested Visits Authorized [id number] Closed 01/21/2024 01/20/2025 1 1 Encounter Details Date Type Department Care Team (Latest Contact Info) Description 01/21/2024 Transcribe Orders Virtual Department [address] [place] [address] [phone] Manan Durham MD [address] [place] [address], [address] [place], [place] [phone] [email or web address] TIA (transient ischemic [...] documented as of this encounter Care Teams Ear Nose Throat Surgeon Relationship Specialty Start Date End Date Unknown, Unknown, MD PCP - General 05/10/23 01/31/24 Collisn Pizano, [employer] [address] [place] [address] PCP - General Nurse Practitioner 02/01/24 Rosa Newman NP [email or web address] Historical LMR Provider 11/30/16 06/11/24 documented as of this encounter Additional Source Comments The information contained in this document represents components of the legal health record. It is not the complete legal health record.[facility]
--- OUTSIDE RECORDS SUMMARY | 2025-02-14 14:53 | XMS_ITS | Clinical Summary ---
Author Organization [facility] Address [address] [place] [address] Phone Care Team Providers Care Management Accounts Manager Name Role Phone Tim Chambers MD Primary Care Provider [phone] Social History Tobacco Use Types Packs/Day Years Used Date Smoking Tobacco: Never Assessed Comments Unknown Sex and Gender Information Value Date Recorded Sex Assigned at Not on file Legal Sex Female 8:39 PM EST Gender Identity Not on file Sexual Orientation Not on file Plan of Treatment Health Maintenance Due Date Last Done Comments Breast Cancer Screening 1950 Colorectal Cancer Screening: Colonoscopy 1950 DTaP,Tdap,and Td Vaccines (2 - Td or Tdap) 11/16/2022 11/16/2012 Falls Risk Assessment 03/12/2023 Osteoporosis Screening (Bone Density Screening) 03/12/2023 Social Influencers of Health Screening 03/12/2023 Depression Screening 02/16/2024 COVID-19 Vaccine ( season) 2024 04/27/2020 Influenza Vaccine (#1) 2024 3, 12/15/2021, 10/31/2019, [...] Associated Diagnosis Comments EXTERNAL NEUROLOGY REPORT Routine 11/28/2024 12:32 PM EDT from Last 3 Months Results * External Neurology Report (11/28/2024 12:32 PM EDT) us Historical Provider NEUROLOGY ORDERABLES Rachel l Result from Last 3 Months Insurance [facility] Care Teams Management Accounts Manager Relationship Specialty Start Date End Date Tim Chambers MD [address] [place] [address] PCP - General 02/15/10
--- OUTSIDE RECORDS SUMMARY | 2025-02-14 14:53 | XMS_ITS | Clinical Summary ---
Author Organization [facility] Address [address] [facility] [address] [place] [address] Phone Care Team Providers Care Getterer Name Role Phone Collins Pizano NP Primary Care Provider Allergies Active [...] results. If negative/WNL would recommend restarting MTX. [facility] cc'ed on visit note. Lumbar spine [...] any further testing without reservation from this model maker plaster. Seasonal allergic rhinitis 09/22/2019 Obstructive sleep apnea [...] (03/27/2022 11:20 AM EST) HDL 66 mg/dL [facility] Comment: Interpretation <40 mg/dL: Low HDL cholesterol (major risk factor for CHD) Greater than or equal to 60 mg/dL: High HDL cholesterol ( negative risk factor for CHD) HDL - cholesterol is affected by a number of factors, e.g. smoking, excerise, hormones, sex and age. CHOLESTEROL 194 0 - 240 mg/dL [facility] TRIGLYCERIDES 91 30 - 160 mg/dL [facility] LDL 110 50 - 129 mg/dL [facility] Comment: LDL levels in terms of risk for coronary heart disease: <100 mg/dL: Optimal 100-129 mg/dL: Near or above optimal 130-159 mg/dL: Borderline high 160-189 mg/dL: High >190 mg/dL: Very High CARDIAC RISK RATIO 2.9(L) 3.3 - 4.4 C [facility] Blood 03/27/2022 11:2 0 AM EST 03/27/2022 11:27 AM EST Rosa Newman NP LAB BLOOD BKR ORDERABLES Final Result [address] [address] * Hepatitis C antibody, qualitative (09/22/2019 11:56 AM EDT) HCV NON-REACTIV E NON-REACTI VE [facility] Blood 09/22/2019 11:5 6 AM EDT 09/22/2019 12:19 PM EDT us Rosa Newman BLANKBOOK STITCHING MACHINE OPERATOR LAB BLOOD BKR ORDERABLES Final Result [address] [id number] from Last 3 Months or Most Recently Relevant to Health Maintenance Insurance [employer] [place] [address] [employer] [place] [address] [employer] B[employer] [place] [address] [employer] B[employer] [address] [employer] B[employer] [address] [employer] B[employer] [place] [address] [facility] [employer] Care Teams Getterer Relationship Specialty Start Date End Date Collins Pizano NP [address] [place] [address] PCP - General Nurse Practitioner 02/01/24 Additional Source Comments The information contained in this document represents components of the legal health record. It is not the complete legal health record.[facility]
== END 2025-02-14 13:29 | disposition home or self-care (01) ==
LOC: HO.HMGAL 13:29
PROVIDERS: PCP Nurse Practitioner; Visit Provider Registered Nurse Emergency
DX: J30.89 Other allergic rhinitis (principal)
CPT/HCPCS: 95117; 95165